=== PATIENT | male | born 1945 | race Caucasian/White ===

== ENCOUNTER 2019-05-02 12:24 | Outpatient (CLI) | payer MEDICARE, OTHER, SELFPAY ==
--- NOTE | ~2019-05-02 | XR_ITS ---
EXAMINATION: XR sacroiliac jt inj w imag BI DATE: 05/02/2019 13:41 INDICATION: Low back and bilateral hip pain. TECHNIQUE: A time-out was performed to verify the patient's name, date of , and procedure to b e performed. The procedure including the risks, benefits, and alternatives was discussed with the pat ient. Risks discussed included bleeding and infection. The patient understood the risks and agreed to proceed. The skin overlying the bilateral sacroiliac joints joint was prepped and draped in usual s terile fashion. Attention was first turned to the right sacroiliac joint. Anesthetic was administered with 1% lidocaine subcutaneously. A 22 G needle was advanced under fluoroscopic guidance into the j oint. Injection of 0.6 mL of Omnipaque 240 confirmed intra-articular position of the needle. Subseq uently, injectate consisting of 5 mL of 3:1:1 mixture of 1% lidocaine:40 mg/mL [place]alo mg dexameth asone was injected. Washout of contrast was seen confirming intra-articular administration. The needl e was removed and attention turned the lesser curvature. Anesthetic was administered with 1% lidocain e subcutaneously. A 22 G needle was advanced under fluoroscopic guidance into the joint. Injection of 0.6 mL of Omnipaque 240 confirmed intra-articular position of the needle. Subsequently, injectate consisting of 5 mL of 3:1:1 mixture of 1% lidocaine:40 mg/mL Kenalo mg dexamethasone was injecte d. Washout of contrast was seen confirming intra-articular administration. The needle was removed. Eric th entry sites were cleaned and dressed. There were no immediate complications. Fluoroscopy exposure time was 1.2 minutes. The total number of images was 6. FINDINGS: Real-time fluoroscopy demonstrates the needle in the left and right sacroiliac joints. Li ent's pain prior to procedure:0/10 on the right and 2/10 on the left. Patient's pain following the p rocedure: 0/10 on both the left and right. IMPRESSION: 1. Successful left and right sacroiliac joint injections of local anesthetic and steroid with decreas e in the patient's presenting pain. Reviewed, dictated and finalized at location A. EILLANCE OFFICER IMPRESSION: 1. Successful left and right sacroiliac joint injections of local anesthetic an d steroid with decrease in the patient's presenting pain.
== END 2019-05-02 12:25 | disposition home or self-care (01) ==
LOC: ANHIMG 12:25
PROVIDERS: PCP Internal Medicine; Visit Provider Internal Medicine
DX: M54.5 Low back pain (principal); M25.551 Pain in right hip; M25.552 Pain in left hip
CPT/HCPCS: 27096; G0260; J1100; J3301; Q9966

== ENCOUNTER 2019-07-14 13:18 | Outpatient (RCR) | payer MEDICARE, OTHER, SELFPAY ==
--- NOTE | 2019-07-17 12:44 | PTOPEVAL ---
Thank you for referring this patient to [facility]. Please review, sign, date and return this plan of care [facility]. I agree with and certify that the following plan of care is medically necessary. Referring Physician Date Admitting Provider: Attending Provider: Bal Tomas MD Referring Provider: *PT Outpatient Evaluation Start: 07/14/19 12:58 Freq: Status: Active Protocol: Document 07/14/19 13:00 [email or web address] (Rec: 07/17/19 12:33 LONNIE [email or web address]) Therapy Assessment Status Assessment Status Assessment Status Evaluation Evaluation Information Problem Diagnosis low back and right knee pain, weakness Onset 07/06/19 Subjective Information Pt. reports that he has been Query Text:As Reported By Patient/ having difficulty with right Family knee pain, bilateral leg pain and extreme pain described across the low back for years. He reports that he has performed therapy in the past, but states that he has failed to continue to exercise at home. He reports that he is mostly limited due to extreme back pain developing with short periods of standing. 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 He reports that his goal is to improve his strength and attempt to decrease his pain. Prior Level of Function Activity Level (Last 3 Months) Hand Dominance Right Activity of Daily Living Ability Independent Indoor/Home Mobility Independent Community Mobility Independent Stairs Ability Independent Functional Cognition (Planning, Shopping Independent , Taking Medications) Cooking Yes Cleaning No Laundry No Shopping No Driving Yes Comments Additional Prior Level of Function Pt. 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 He has extensive medical hx including multiple levels of described lumba
--- NOTE | 2019-08-04 13:22 | PCPTNOTE ---
08/04/19-pt cancelled today's apt due to family emergency.-ELBA
--- NOTE | 2019-08-07 09:39 | PCPTNOTE ---
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
== END 2019-08-02 23:59 | disposition home or self-care (01) ==
LOC: CHSPT 13:18
PROVIDERS: PCP Internal Medicine; Visit Provider Internal Medicine
DX: M54.5 Low back pain (principal); M25.569 Pain in unspecified knee; M62.81 Muscle weakness (generalized)
CPT/HCPCS: 97110; 97140

== ENCOUNTER 2019-07-28 11:27 | Outpatient (CLI) | payer MEDICARE, OTHER, SELFPAY ==
--- NOTE | ~2019-07-28 | XR_ITS ---
XR chest 2V 07/28/2019 11:45 Indication: Hypertension. Procedure: 2 view chest Comparison: 08/24/2018 Findings: Heart size normal. Left basilar atelectasis. No focal pneumonia, edema, pleural effusion or pneumothorax. There is atherosclerosis and ectasia of the aorta. Impression: 1: Left basilar atelectasis. Reviewed, dictated and finalized at location B. TRY FARMER MEAT Impression: 1: Left basilar atelectasis.
== END 2019-07-28 11:28 | disposition home or self-care (01) ==
LOC: CHSIMG 11:31
PROVIDERS: PCP Internal Medicine; Visit Provider Internal Medicine
DX: I10 Essential (primary) hypertension (principal)
CPT/HCPCS: 71046

== ENCOUNTER 2019-11-30 08:43 | Outpatient (RCR) | payer MEDICARE, OTHER, SELFPAY ==
--- NOTE | 2019-11-30 10:22 | PTOPEVAL ---
Thank you for referring Gopal Jordan to [facility]. Please review, sign, date and return this plan of care [facility]. I agree with and certify that the following plan of care is medically necessary. Referring Physician Date Admitting Provider: Attending Provider: Bal Tomas MD Referring Provider: *PT Outpatient Evaluation Start: 11/30/19 07:18 Freq: Status: Active Protocol: Document 11/30/19 08:58 Efrain (Rec: 11/30/19 10:00 DAVID [email or web address]) Therapy Assessment Status Assessment Status Assessment Status Evaluation Evaluation Information Problem Diagnosis generalized weakness Onset 11/27/19 Subjective Information patient reports he he is Query Text:As Reported By Patient/ having difficulty walking, Family difficulty lifting his arms, and reaching above his shoulder level. he reports he is prorgessively getting worse . he reports he has been to a neurologist back in july. he reports he has had no results given to him of any tests yet. he reports he is going to see an orthopedic md for evaluation of the shoulders tomorrow. he reports he has not had any falls. he reports he is frequently dropping objects. he reports the little finger and ring finger on the R hand are numb. he reports he has pains all over. Prior Level of Function Comments Additional Prior Level of Function he reports he has been Comments progressively getting worse since 2016. he reports he has had several back surgeries for the leg issues, but reports he is still getting weaker. Pain Assessment Timing of Pain Assessment Timing of Pain Assessment Assessment Pain Scale Pain Scale Used Numeric (1 - 10) Self Report Pain Assessment Generalized Reported Pain Level 4 Pain Description Aching Lowest Pain Intensity 0 Greatest Pain Intensity 6 Pain Score Pain Score 4: Self Report Upper Extremity Range of Motion Scapular/ Shoulder Range of Motion Right Shoulder Flexion - Active 55 Shoulder Flexion - Passive 165 Shoulder Medial Rotation - Active 35 Shoulder Medial Rotation - Active
--- NOTE | 2019-12-11 08:34 | PCPTNOTE ---
12/11/19-pt had another apt come up last minute and is unable to make it today.-.
== END 2019-12-29 10:30 | disposition home or self-care (01) ==
LOC: CHSPT 08:43
PROVIDERS: PCP Internal Medicine; Visit Provider Internal Medicine
DX: R53.1 Weakness (principal)
CPT/HCPCS: 97110; 97162

== ENCOUNTER 2019-12-14 08:40 | Outpatient (CLI) | payer MEDICARE, OTHER, SELFPAY ==
--- NOTE | ~2019-12-14 | XR_ITS ---
XR foot LT 2V DATE: 12/14/2019 09:16 INDICATION: Left foot pain. Polyarthralgia. TECHNIQUE: AP and lateral views COMPARISON: None FINDINGS: Plantar calcaneal enthesopathy. No fracture or dislocation, periosteal reaction or bone destruction. IMPRESSION: Plantar calcaneal enthesopathy Reviewed, dictated and finalized at location B.
--- NOTE | ~2019-12-14 | XR_ITS ---
XR foot RT 2V DATE: 12/14/2019 09:16 INDICATION: Right foot pain. Polyarthralgia. TECHNIQUE: AP and lateral views COMPARISON: None FINDINGS: There is plantar calcaneal enthesopathy. No fracture, dislocation, periosteal reaction or bone destruction is detected. IMPRESSION: Plantar calcaneal enthesopathy Reviewed, dictated and finalized at location B.
--- NOTE | ~2019-12-14 | XR_ITS ---
XR hand RT 2V DATE: 12/14/2019 09:16 INDICATION: Right hand pain. Polyarthralgia. TECHNIQUE: 3 views COMPARISON: None FINDINGS: There is degenerative change including spurring at the radial ulnar articulation. There is mild chondrocalcinosis at the triangular cartilage. There is severe osteoarthritic change at the first carpometacarpal joint. Prominent osteoarthritic ch anges also noted at the first through third metacarpophalangeal joints. There is osteoarthritic gu e at multiple interphalangeal joints. No fracture, dislocation, periosteal reaction or bone destruction or erosive change is evident. IMPRESSION: Polyarticular osteoarthritis Reviewed, dictated and finalized at location B.
--- NOTE | ~2019-12-14 | XR_ITS ---
XR hand LT 2V DATE: 12/14/2019 09:16 INDICATION: Left hand pain. Polyarthralgia. TECHNIQUE: AP and lateral views COMPARISON: None FINDINGS: There is spurring at the radial ulnar articulation and minimal subtle chondrocalcinosis at the triangular cartilage. There is mild osteoarthritis at the first carpometacarpal joint. There is osteophyte is at the first through third metacarpophalangeal joints and multiple interphalangeal joints. No fracture or dislocation, periosteal reaction or bone destruction or erosive change is evident. IMPRESSION: Polyarticular osteoarthritis Reviewed, dictated and finalized at location B.
== END 2019-12-14 08:41 | disposition home or self-care (01) ==
LOC: CHSIMG 08:44
PROVIDERS: PCP Internal Medicine; Visit Provider Internal Medicine Rheumatology
DX: M25.50 Pain in unspecified joint (principal); R53.83 Other fatigue; M62.81 Muscle weakness (generalized)
CPT/HCPCS: 73120; 73620

== ENCOUNTER 2020-03-22 13:00 | Outpatient (CLI) | payer MEDICARE, OTHER, SELFPAY ==
--- NOTE | ~2020-03-22 | XR_ITS ---
EXAMINATION: XR chest 2V DATE: 03/22/2020 13:15 INDICATION: Preoperative evaluation with brisk factors of hypertension and known abdominal aortic ane urysm. TECHNIQUE: frontal and lateral views of the chest were obtained. COMPARISON: Chest radiograph dated 07/28/19 FINDINGS: Elevation of the right hemidiaphragm. A few linear opacities at the bilateral lung bases consistent w ith mild discoid atelectasis. No other airspace opacities, pulmonary edema, pleural effusion or pneum othorax. Heart size is normal. Tortuous thoracic aorta. Minimal chronic anterior wedging of a few low er thoracic vertebral bodies. IMPRESSION: 1. Elevation the right hemidiaphragm with mild bibasilar atelectasis. Reviewed, dictated and finalized at location B.
--- NOTE | 2020-03-22 13:25 | ECG_ITS ---
Measurements Intervals [place] Rate: 92 P: 61 NC: 171 QRS: -12 QRSD: 117 T: 67 QT: 354 QTc: 438 Interpretive Statements SINUS RHYTHM INCOMPLETE RIGHT BUNDLE BRANCH BLOCK DELAYED PRECORDIAL R/S TRANSITION BASELINE WANDER- I, II, III, AVR, AVL, AVF, V2-V6 BORDERLINE ECG Electronically Signed On 03-22-2020 13:43:34 CDT by Kapil Benitez D.O.
== END 2020-03-22 13:01 | disposition home or self-care (01) ==
PROVIDERS: PCP Internal Medicine; Visit Provider Internal Medicine
DX: I10 Essential (primary) hypertension (principal); Z01.818 Encounter for other preprocedural examination
CPT/HCPCS: 71046; 93005

== ENCOUNTER 2020-03-30 10:09 | Outpatient (CLI) | payer MEDICARE, SELFPAY ==
[2020-04-01 00:53] LABS: SARS-CoV-2 RNA PCR Negative
== END 2020-03-30 10:10 | disposition home or self-care (01) ==
LOC: CHSLAB 10:11
PROVIDERS: PCP Internal Medicine; Visit Provider Neurological Surgery
DX: Z20.828 Contact with and (suspected) exposure to other viral communicable diseases (principal); Z01.818 Encounter for other preprocedural examination
CPT/HCPCS: 87635; C9803; U0003

== ENCOUNTER 2020-05-13 09:52 | Outpatient (RCR) | payer MEDICARE, OTHER, SELFPAY ==
--- NOTE | 2020-05-13 13:05 | OTOPEVAL ---
Thank you for referring Gopal Jordan to [facility].? The patient is scheduled to be seen for therapy? ____x/week for ___ weeks. Please review, sign, date and return this plan of care [facility]. I agree with and certify that the following plan of care is medically necessary. Referring Physician Date Admitting Provider: Attending Provider: GURWINDER PRINCE Referring Provider: DexterOT Outpatient Evaluation Start: 05/13/20 09:58 Freq: Status: Active Protocol: Document 05/13/20 09:59 [facility] (Rec: 05/13/20 11:15 [facility] [id number]) Therapy Assessment Status Assessment Status Assessment Status Evaluation Outpatient Past Medical History Musculoskeletal History Hx Joint Replacement Yes: L hip and knee Evaluation Information Problem Diagnosis spinal fusion Onset 04/02/20 Cause cervical radiculopathy Subjective Information Patient reports that he has Query Text:As Reported By Patient/ been having difficulity with Family bilateral shoulders and neck since July 2019. Patient had surgery on for cervical fusion and had several complications following surgery and spent 47 days in the hospital. Patient returned home last Wednesday. Patient reports that things have been going fairly well since that he has returned home however his right knee is completely shot and has been giving out. Patient recently had a feeding tube placed but is currently not using. Patient reports that his right rotator cuff is also shot and has been prior to neck surgery. Patient feels that his R hand is slowly getting stronger and his sensation has improved however would like to improve upon strength and use of the R UE. Prior Level of Function Activity Level (Last 3 Months) Hand Dominance Right Activity of Daily Living Ability Independent Indoor/Home Mobility Independent Community Mobility Independent Stairs Ability Independent Functional Cognition (Planning, Shopping Independent , Taking Medications)
--- NOTE | 2020-05-13 13:51 | PTOPEVAL ---
Thank you for referring Gopal Jordan to [facility].? The patient is scheduled to be seen for therapy? ____x/week for ___ weeks. Please review, sign, date and return this plan of care [facility]. I agree with and certify that the following plan of care is medically necessary. Referring Physician Date Admitting Provider: Attending Provider: GURWINDER PRINCE Referring Provider: *PT Outpatient Evaluation Start: 05/13/20 13:21 Freq: Status: Active Protocol: Document 05[facility]13/20 11:00 [facility] (Rec: 05/13/20 13:44 [facility] [id number] Therapy Assessment Status Assessment Status Assessment Status Evaluation Outpatient Past Medical History Musculoskeletal History Hx Joint Replacement Yes: L hip and knee Evaluation Information Problem Diagnosis s/p cervical fusion C3-C7 Onset 03/31/20 Subjective Information patient reports he underwent Query Text:As Reported By Patient/ cervical fusion on 03/31/20. Family he reports since then he has had complications and has spent a total of over 30 days in [facility] care since his oppertation. he reports he is receiving OT for his UE's, ST for his speecha nd swallowing issues, and PT for his LE deficits. however, he reports his greatest issue is with his R kene giving out on him. he reports he is bone on bone in the R knee. he reports he needs a replacement, but cannot have one done currently . he reports he is still struggling with the use of his R UE. he reports no shoudler function and minimal hand, wrist, and elbow function. he reports he is using a walker 100% of the time for ambulation, but reports his R knee will still give out on him without warning. Prior Level of Function Comments Additional Prior Level of Function patient reports he has been Comments ahving walking difficulty and should decreased functional use/mobility for several months prior to surgery. 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 Pain Assessment
--- NOTE | 2020-05-15 14:48 | STOPEVAL ---
SPEECH THERAPY OUTPATIENT EVALUATION Thank you for referring Gopal Jordan to [facility].? The patient is scheduled to be seen for therapy? 1x/week for 2 weeks. Please review, sign, date and return this plan of care [facility]. I agree with and certify that the following plan of care is medically necessary. Referring Physician Date Admitting Provider: Attending Provider: GURWINDER PRINCE Referring Provider: DAIJA Outpatient Evaluation Start: 05/15/20 13:44 Freq: Status: Active Protocol: Document 05/15/20 13:45 [facility] (Rec: 05/15/20 14:45 [facility]JB [email or web address]) Therapy Assessment Status Assessment Status Assessment Status Evaluation Outpatient Past Medical History Past Medical History Source of Past Medical History Patient Other Source of Past Medical History Medical history was taken from previous hospital admission. Respiratory History Hx Sleep Apnea Yes: uses CPAP Musculoskeletal History Hx Joint Replacement Yes: L hip and knee Hx Spinal Surgery Yes: L2-L5 Laminectomy January of 2019, 04-02-20 C3 -7 cervical fusion Integumentary History Hx Other Skin Disorders Yes: Hx of skin cancer excision Other History Hx Cancer Yes: skin Evaluation Information Problem Diagnosis s/p cervical fusion C3-C7 Onset 04/02/20 Cause cervical radiculopathy Subjective Information Patient reports he underwent Query Text:As Reported By Patient/ cervical fusion on 03/31/20. Family he reports since then he has had complications and has spent a total of over 30 days in hospital care since his operation. He reports he is receiving OT for his UE's, ST for his swallowing difficulties, and PT for his LE deficits. The patient reported that he has been having swallowing difficulties since the cervical surgery. The doctor suspects possible nerve damage impacting the patient's sensation and laryngeal function. The patient reported that the hardware placed is impacting the epiglottic function/ movement. The patient was silently aspirating after
--- NOTE | 2020-05-29 14:33 | PCSTNOTE ---
Admitting Provider: Attending Provider: GURWINDER PRINCE SPEECH THERAPY DISCHARGE NOTE Patient:Gopal Jordan Date of :1945 Patient has attended all scheduled speech therapy sessions since evaluation on 05/15/2020. Patient?s initial visit was on 05/15/2020 and he had a total of 2 treatment visits. The goals have been met and patient is tolerating a least restrictive diet through the use of trained compensatory techniques. Thank you for referring this patient to [facility]. Please review, sign, date and return this discharge summary [facility]. I have been updated about the patient's current status and I agree with discharge from the above service at this time. Referring Physician Date
--- NOTE | 2020-07-09 14:10 | PCOTNOTE ---
Patient is discharged from skilled OT services at this time as he had knee surgery and is receiving Home health. See patient's last treatment note for skills at discharge. MS
--- NOTE | 2020-07-18 07:11 | PCPTNOTE ---
07/18/20 - patient has had surgery and begun therapy under a new number. all progress towards goals taken most recent evaluation/note on this account. JTF
== END 2020-06-04 15:24 | disposition home or self-care (01) ==
LOC: CHSPT 09:52
PROVIDERS: PCP Internal Medicine
DX: M47.22 Other spondylosis with radiculopathy, cervical region (principal)
CPT/HCPCS: 92526; 92610; 97014; 97110; 97162; 97165; 97530; G0283

== ENCOUNTER 2020-05-18 10:39 | Outpatient (CLI) | payer MEDICARE, OTHER, SELFPAY ==
--- NOTE | ~2020-05-18 | XR_ITS ---
XR chest 2V 05/18/2020 11:16 Indication: Aspiration pneumonia Procedure: AP view of the chest Comparison: Comparison to multiple prior studies sequentially, with oldest reviewed study dated 07/2018. Findings: Shallow inspiration. Bibasilar airspace disease, consistent with pneumonia. No edema, signi ficant effusion or pneumothorax. No acute osseous abnormality. Impression: 1: Bibasilar airspace consolidation, consistent with pneumonia. Consider modified barium swallow if t here is concern for aspiration. Reviewed, dictated and finalized at location A. NT ASSOCIATE Impression: 1: Bibasilar airspace consolidation, consistent with pneumonia. Consider modifi ed barium swallow if there is concern for aspiration.
== END 2020-05-18 10:40 | disposition home or self-care (01) ==
LOC: CHSIMG 10:41
PROVIDERS: PCP Internal Medicine; Visit Provider Internal Medicine
DX: J69.0 Pneumonitis due to inhalation of food and vomit (principal)
CPT/HCPCS: 71046

== ENCOUNTER 2020-06-10 09:59 | Outpatient (CLI) | payer MEDICARE, OTHER, SELFPAY ==
--- NOTE | ~2020-06-10 | XR_ITS ---
EXAMINATION: XR chest 2V DATE: 06/10/2020 10:36 INDICATION: Chest pain. Dysphagia. TECHNIQUE: Frontal and lateral views of the chest were obtained. COMPARISON: Chest 2 views 05/18/2020, 03/22/2020 FINDINGS: There are airspace opacities in the lower lung zones, right worse than left. No pleural eff usion or pneumothorax. The heart size is normal. There are changes of anterior fusion procedure in ce rvical spine. IMPRESSION: 1. Stable airspace opacities in the lower lung zones, consistent with atelectasis versus pneumonia. Reviewed, dictated and finalized at location B. AGE CENTER SUPERVISOR IMPRESSION: 1. Stable airspace opacities in the lower lung zones, consistent with atelectas is versus pneumonia.
--- NOTE | ~2020-06-10 | XR_ITS ---
EXAMINATION: XR_CERV2-3V_CR EXAM DATE: 06/10/2020 10:36 INDICATION: Neck pain, cervical fusion. TECHNIQUE: Cervical spine frontal, lateral, lateral swimmers, and open-mouth odontoid projections. There is no prior study for comparison. FINDINGS: There is anterior plate and supporting screws from C3 through C7. Hardware is intact. Ther e is severe cervical arthropathy. The odontoid process is intact. The lateral masses of C1 line up w ith C2. Prevertebral soft tissue and pre-dens space are within normal limits. Some carotid arterial s clerosis bilaterally. Lung apices are unremarkable. IMPRESSION: 1. Intact fusion C3-7. 2. Severe cervical arthropathy. Reviewed, dictated and finalized at location A. FOLIO ARCHITECT
== END 2020-06-10 10:00 | disposition home or self-care (01) ==
LOC: CHSIMG 10:06
PROVIDERS: PCP Internal Medicine; Visit Provider Internal Medicine
DX: J69.0 Pneumonitis due to inhalation of food and vomit (principal); Z98.890 Other specified postprocedural states
CPT/HCPCS: 71046; 72040

== ENCOUNTER 2020-07-16 09:56 | Outpatient (RCR) | payer MEDICARE, OTHER, SELFPAY ==
--- NOTE | 2020-07-18 06:47 | PTOPEVAL ---
Thank you for referring Gopal Jordan to [facility].? The patient is scheduled to be seen for therapy? __3__x/week for 12 visits. Please review, sign, date and return this plan of care [facility]. I agree with and certify that the following plan of care is medically necessary. Referring Physician Date Admitting Provider: Attending Provider: JERI MARIEE Referring Provider: *PT Outpatient Evaluation Start: 07/16/20 09:57 Freq: Status: Active Protocol: Document 07/16/20 09:58 LONNIE (Rec: 07/16/20 10:46 LONNIE [email or web address]) Therapy Assessment Status Assessment Status Assessment Status Evaluation Outpatient Past Medical History Respiratory History Hx Sleep Apnea Yes: uses CPAP Musculoskeletal History Hx Joint Replacement Yes: L hip and knee Hx Spinal Surgery Yes: L2-L5 Laminectomy January of 2019, 04-02-20 C3 -7 cervical fusion Integumentary History Hx Other Skin Disorders Yes: Hx of skin cancer excision Other History Hx Cancer Yes: skin Evaluation Information Problem Diagnosis s/p right TKA Onset 06/17/20 Subjective Information Pt. reports he underwent right Query Text:As Reported By Patient/ TKA 5 weeks ago. He has been Family doing HH since surgery. He states that prior to undergoing knee surgery he was recovering from weakness developed after neck surgery. He states that he is currently using a ww for ambulation. He reports knee pain is minimal. He states that he continues to use his walker due to l.e. weakness. He reports that his goal is to be able to walk without the use of his walker. Pain Assessment Timing of Pain Assessment Timing of Pain Assessment Pre-Treatment Pain Scale Pain Scale Used Numeric (1 - 10) Self Report Pain Assessment Right Knee(s) Reported Pain Level 0 Pain Frequency Intermittent Lowest Pain Intensity 0 Greatest Pain Intensity 3 Pain Score Pain Score 0: Self Report Interventions Used Interventions Used By Clinicians Activity or ADL's,Exercise Upper Extremity Range of Motion General Upper Extremity Range of Motion Gross Upper Extremity Range of Motion Pt. demonstrates inability to Comments achieve active movement of the
--- NOTE | 2020-08-09 10:56 | PTOPEVAL ---
Thank you for referring Gopal Jordan to [facility].? The patient is scheduled to be seen for therapy? _2___x/week for 12 visits. Please review, sign, date and return this plan of care RICH. I agree with and certify that the following plan of care is medically necessary. Referring Physician Date Admitting Provider: Attending Provider: JERI MARIEE Referring Provider: *PT Outpatient Evaluation Start: 07/16/20 09:57 Freq: Status: Active Protocol: Document 08/09/20 10:13 LONNIE (Rec: 08/09/20 10:56 LONNIE [id number]) Therapy Assessment Status Assessment Status Assessment Status Progress Outpatient Past Medical History Respiratory History Hx Sleep Apnea Yes: uses CPAP Musculoskeletal History Hx Joint Replacement Yes: L hip and knee Hx Spinal Surgery Yes: L2-L5 Laminectomy January of 2019, 04-02-20 C3 -7 cervical fusion Integumentary History Hx Other Skin Disorders Yes: Hx of skin cancer excision Other History Hx Cancer Yes: skin Evaluation Information Problem Diagnosis s/p right TKA Subjective Information Pt. reports that he is doing Query Text:As Reported By Patient/ better. He states that he is Family walking further and able to walk straighter. He states that he still uses his walker. He reports that he has not yet returned to driving. He reports that his goal is to be able to walk without his cane and to be able to return to driving. Pain Assessment Pain Scale Pain Scale Used Numeric (1 - 10) Self Report Pain Assessment Right Knee(s) Reported Pain Level 0 Pain Score Pain Score 0: Self Report Interventions Used Interventions Used By Clinicians Activity or ADL's,Exercise Lower Extremity Muscle Strength Testing General Lower Extremity Strength Gross Lower Extremity Strength -right hip flexion 4-/5 -left hip flexion 4+/5 -right knee flexion 4/5 -left knee flexion 4+/5 -right knee extension 3/5 -left knee extension 4+/5 -right ankle dorsiflexion 4+/5 -left ankle dorsiflexion 5/5 Balance Assessment Tinetti Balance Assessment Sitting Balance Steady, safe Ability to Arise Able, w/o using arms Attempts to Arise Able, requires >1 attempt Immedi
== END 2020-09-19 16:14 | disposition home or self-care (01) ==
LOC: CHSPT 09:56
PROVIDERS: PCP Internal Medicine
DX: Z96.651 Presence of right artificial knee joint (principal)
CPT/HCPCS: 97110; 97116; 97162; 97530

== ENCOUNTER 2021-04-22 10:33 | Outpatient (CLI) | payer MEDICARE, OTHER, SELFPAY | END 2021-04-22 10:34 | disposition home or self-care (01) | LOC: CHSOUTPT 10:37 | PROVIDERS: PCP Internal Medicine; Visit Provider Specialist | DX: C44.311 Basal cell carcinoma of skin of nose (principal) | CPT/HCPCS: 88305 ==

== ENCOUNTER 2021-09-15 10:42 | Outpatient (CLI) | payer MEDICARE, OTHER, SELFPAY ==
--- NOTE | ~2021-09-15 | XR_ITS ---
XR chest 2V DATE: 09/15/2021 11:21 INDICATION: Cough. Shortness of breath. Right rib pain. Fall 6 weeks ago. TECHNIQUE: Upright 2 view examination COMPARISON: 06/10/2020 AP and lateral chest FINDINGS: There is chronic discoid atelectasis or scarring at the lung bases. There is mild to modera te elevation of the right leaf of the diaphragm. Otherwise no pulmonary infiltrate or consolidation, pleural effusion or pulmonary vascular congestion or pneumothorax is detected. Normal heart size. Aortic calcification, ectasia and tortuosity. Diffuse osteopenia. Status post anterior cervical spine surgical fusion. Osteoarthritic change at the glenohumeral joints. Probable bilateral rotator cuff atrophy. IMPRESSION: Chronic bibasilar discoid atelectasis or scarring Mild to moderate elevation of right diaphragm Aortic atherosclerosis, tortuosity Diffuse osteopenia Status post anterior cervical spine surgical fusion Bilateral glenohumeral osteoarthritis and rotator cuff atrophy Reviewed, dictated and finalized at location A.
--- NOTE | ~2021-09-15 | XR_ITS ---
XR ribs RT 2V DATE: 09/15/2021 11:21 INDICATION: Fall 6 weeks ago. Right rib pain. Shortness of breath, cough. TECHNIQUE: 4 views COMPARISON: None FINDINGS: Diffuse osteopenia. Probable old healed anterolateral right eighth rib fracture deformity. Probable old healed posterolateral right 10th rib fracture deformity. CT thorax would be more helpful to differentiate acute from chronic fractures. No definite recent fractures identified. Status post anterior cervical spine surgical fusion. Degenerative changes of the thoracic and lumbar spine. Prominent atelectasis or scarring at the right lung base. IMPRESSION: Osteopenia Probable old fracture deformities of right eighth and 10th ribs. Reviewed, dictated and finalized at location A.
[2021-09-15 10:54] LABS: Basophils Absolute Auto 0.08 K/mm3 (0.00-0.10); Basophils Percent Auto 0.6 % (0.0-1.0); Eosinophils Absolute Auto 0.32 K/mm3 (0.02-0.50); Eosinophils Percent Auto 2.5 % (1.0-6.0); Hematocrit 44.8 % (37.0-46.0); Hemoglobin 14.4 g/dL (12.4-15.3); Immature Granulocyte Absolute 0.07 K/mm3 (0.00-0.00); Immature Granulocyte Percent A 0.5 % (0.0-0.0); Lymphocytes Percent Auto 18.1 % (18.0-42.0); Mean Corpuscular HGB Conc 32.1 g/dL (32.0-36.0); Mean Corpuscular Hemoglobin 29.4 pg (27.0-31.0); Mean Corpuscular Volume 91.4 fL (78.0-102.0); Mean Platelet Volume 8.8 fl (8.7-11.0); Monocytes Absolute Auto 1.47 K/mm3 (0.10-0.90); Monocytes Percent Auto 11.5 % (2.0-11.0); Neutrophils Absolute Auto 8.5 K/mm3 (1.7-7.2); Neutrophils Percent Auto 66.8 % (50.0-70.0); Platelet Count Result 273 K/mm3 (150-420); Red Cell Distribution Width 13.4 % (11.6-14.4); White Blood Count 12.7 K/mm3 (4.8-10.8)
[2021-09-15 11:10] LABS: Alanine Aminotransferase 45 U/L (16-63); Albumin Level 3.2 g/dL (3.4-5.0); Alkaline Phosphatase 170 U/L (46-116); Anion Gap 8 mmol/L (8-16); Aspartate Amino Transferase 31 U/L (15-37); Bilirubin,Total 0.5 mg/dL (0.00-1.00); Blood Urea Nitrogen 12 mg/dL (7-18); Calcium 9.4 mg/dL (8.5-10.1); Carbon Dioxide 30 mmol/L (21-32); Chloride 99 mmol/L (98-108); Estimated Glomerular Filt Rate > 60; Glucose 107 mg/dL (70-99); Osmolality Calculated 283 mOsm/kg (285-295); Potassium 3.9 mmol/L (3.5-5.1); Sodium 137 mmol/L (136-145); Total Protein 7.8 g/dL (6.4-8.2)
== END 2021-09-15 10:43 | disposition home or self-care (01) ==
LOC: CHSIMG 10:44
PROVIDERS: PCP Internal Medicine; Visit Provider Nurse Practitioner Family
DX: R05.9 Cough, unspecified (principal); J06.9 Acute upper respiratory infection, unspecified; R07.81 Pleurodynia
CPT/HCPCS: 36415; 71046; 71100; 80053; 85025

== ENCOUNTER 2021-10-16 16:40 | Outpatient (CLI) | payer MEDICARE, OTHER, SELFPAY ==
--- NOTE | ~2021-10-16 | XR_ITS ---
XR chest 2V 10/16/2021 17:01 Indication: Shortness of breath Procedure: 2 view chest Comparison: Comparison to multiple prior studies sequentially, with oldest reviewed study dated 04/24. Findings: Heart size is normal. There is atherosclerosis and ectasia of the aorta. There are linear i nfiltrates at the lung bases, most likely atelectasis or scarring. No acute focal pneumonia, edema, p leural effusion or pneumothorax. There is a chronic superior endplate compression deformity of the mi dthoracic spine, unchanged. Impression: 1: Chronic bibasilar linear infiltrates which most likely represents atelectasis or scarring. Reviewed, dictated and finalized at location A. Impression: 1: Chronic bibasilar linear infiltrates which most likely represents atelectasi s or scarring.
[2021-10-16 17:09] LABS: Basophils Absolute Auto 0.05 K/mm3 (0.00-0.10); Basophils Percent Auto 0.8 % (0.0-1.0); Eosinophils Absolute Auto 0.22 K/mm3 (0.02-0.50); Eosinophils Percent Auto 3.4 % (1.0-6.0); Hematocrit 41.3 % (37.0-46.0); Hemoglobin 13.7 g/dL (12.4-15.3); Immature Granulocyte Absolute 0.04 K/mm3 (0.00-0.00); Immature Granulocyte Percent A 0.6 % (0.0-0.0); Lymphocytes Absolute Auto 1.26 K/mm3 (1.10-4.50); Lymphocytes Percent Auto 19.7 % (18.0-42.0); Mean Corpuscular HGB Conc 33.2 g/dL (32.0-36.0); Mean Corpuscular Hemoglobin 30.7 pg (27.0-31.0); Mean Corpuscular Volume 92.6 fL (78.0-102.0); Mean Platelet Volume 9.1 fl (8.7-11.0); Monocytes Absolute Auto 0.89 K/mm3 (0.10-0.90); Monocytes Percent Auto 13.9 % (2.0-11.0); Neutrophils Absolute Auto 3.9 K/mm3 (1.7-7.2); Neutrophils Percent Auto 61.6 % (50.0-70.0); Platelet Count Result 205 K/mm3 (150-420); Red Blood Count 4.46 M/mm3 (4.70-6.10); Red Cell Distribution Width 13.8 % (11.6-14.4); White Blood Count 6.4 K/mm3 (4.8-10.8)
[2021-10-16 17:23] LABS: Alanine Aminotransferase 35 U/L (16-63); Albumin Level 3.3 g/dL (3.4-5.0); Alkaline Phosphatase 125 U/L (46-116); Anion Gap 6 mmol/L (8-16); Aspartate Amino Transferase 20 U/L (15-37); Bilirubin,Total 0.2 mg/dL (0.00-1.00); Blood Urea Nitrogen 14 mg/dL (7-18); Calcium 8.9 mg/dL (8.5-10.1); Carbon Dioxide 30 mmol/L (21-32); Chloride 100 mmol/L (98-108); Estimated Glomerular Filt Rate > 60; Glucose 87 mg/dL (70-99); Osmolality Calculated 281 mOsm/kg (285-295); Sodium 136 mmol/L (136-145); Total Protein 6.9 g/dL (6.4-8.2)
[2021-10-16 17:44] LABS: Influenza A QL RT-PCR Negative (Negative); Influenza B QL RT-PCR Negative (Negative); SARS-CoV-2 RNA PCR Positive (Negative)
== END 2021-10-16 16:41 | disposition home or self-care (01) ==
LOC: CHSLAB 16:42
PROVIDERS: PCP Internal Medicine; Visit Provider Internal Medicine
DX: U07.1 COVID-19 (principal)
CPT/HCPCS: 36415; 71046; 80053; 85025; 87502; C9803; U0003; U0005

== ENCOUNTER 2022-06-24 10:12 | Outpatient (CLI) | payer MEDICARE, OTHER, SELFPAY ==
[2022-06-24 12:01] LABS: Alanine Aminotransferase 38 U/L (16-63); Albumin Level 3.7 g/dL (3.4-5.0); Alkaline Phosphatase 115 U/L (46-116); Anion Gap 5 mmol/L (8-16); Aspartate Amino Transferase 28 U/L (15-37); Bilirubin,Total 0.3 mg/dL (0.00-1.00); Blood Urea Nitrogen 17 mg/dL (7-18); Carbon Dioxide 35 mmol/L (21-32); Chloride 101 mmol/L (98-108); Cholesterol 229 mg/dL (0-200); Creatine Kinase 59 U/L (39-308); Estimated Glomerular Filt Rate > 60; Glucose 89 mg/dL (70-99); HDL Direct 54 mg/dL (40-60); LDL Cholesterol Calculated 142 mg/dL (<130); Osmolality Calculated 292 mOsm/kg (285-295); Potassium 4.5 mmol/L (3.5-5.1); Sodium 141 mmol/L (136-145); Triglycerides 163 mg/dL (0-150)
== END 2022-06-24 10:13 | disposition home or self-care (01) ==
PROVIDERS: PCP Internal Medicine; Visit Provider Internal Medicine
DX: E78.5 Hyperlipidemia, unspecified (principal)
CPT/HCPCS: 36415; 80053; 80061; 82550

== ENCOUNTER 2022-07-10 09:50 | Outpatient (CLI) | payer MEDICARE, OTHER, SELFPAY ==
--- NOTE | ~2022-07-10 | XR_ITS ---
EXAMINATION: XR abdomen obstructive series DATE: 07/10/2022 10:17 INDICATION: Constipation. TECHNIQUE: Upright and supine views of the abdomen on 4 radiographs were obtained. COMPARISON: None. FINDINGS: There are multiple dilated loops of small bowel. The colon is decompressed. No free intrape ritoneal gas. There are surgical clips in the abdomen. There is a left hip arthroplasty. IMPRESSION: 1. Dilated small bowel, consistent with adynamic ileus versus small bowel obstruction. Reviewed, dictated and finalized at location A. PACKAGER IMPRESSION: 1. Dilated small bowel, consistent with adynamic ileus versus small bowel obstr uction.
--- NOTE | ~2022-07-10 | CT_ITS ---
EXAMINATION: CT abdomen pelvis w con DATE: 07/10/2022 12:02 INDICATION: Abdominal pain. Constipation. TECHNIQUE: Computed tomography (CT) of the abdomen and pelvis was performed with 100 mL Omnipaque 350 intravenous contrast. Automated exposure control and iterative reconstruction technique were employe d. The dose-length product was 1422.89 mGy-cm. COMPARISON: None. FINDINGS: The visualized portions of the lung bases demonstrate mild atelectasis. There is elevation of right hemidiaphragm. No pleural effusion. The heart size is normal. There are coronary artery calc ifications. No pericardial effusion. The liver is normal. The gallbladder is distended. The spleen, p ancreas, and adrenal glands are normal. There is cortical thinning of right kidney. There is a 2 mm s tone in right kidney. There is severe atrophy of left kidney. There are cysts in left kidney measurin g up to 10 mm. The prostate is mildly enlarged. There is diverticulosis of the colon without evidence of diverticulitis. The appendix is normal. There are multiple dilated loops of small bowel without f ocal transition point. There are surgical changes of open aortic repair. There is a 3.9 cm fusiform a neurysm of infrarenal aorta. There is an umbilical hernia containing fat. There are no pathologically enlarged lymph nodes. There is no free intraperitoneal fluid. There are old rib fractures bilaterall y. There is lumbar dextroscoliosis and severe spondylosis. There is a left hip arthroplasty. There is a chronic compression fracture of T7. IMPRESSION: 1. Dilated small bowel without focal transition point, consistent with adynamic ileus. 2. Gallbladder distention, which may be secondary to fasting. 3. Surgical changes of open aortic repair. 3.9 cm fusiform aneurysm of infrarenal aorta. Reviewed, dictated and finalized at location A. ENERGY AUDITOR IMPRESSION: 1. Dilated small bowel without focal transition point, consistent with adynamic ileus. 2. Gallbladder distention, which may be secondary to fasting. 3. Surgical changes of open aortic repair. 3.9 cm fusiform aneurysm of infraren al aorta.
[2022-07-10 10:31] LABS: Alanine Aminotransferase 31 U/L (16-63); Albumin Level 3.5 g/dL (3.4-5.0); Alkaline Phosphatase 96 U/L (46-116); Anion Gap 6 mmol/L (8-16); Aspartate Amino Transferase 24 U/L (15-37); Bilirubin,Total 0.3 mg/dL (0.00-1.00); Blood Urea Nitrogen 17 mg/dL (7-18); Calcium 8.9 mg/dL (8.5-10.1); Carbon Dioxide 31 mmol/L (21-32); Chloride 101 mmol/L (98-108); Estimated Glomerular Filt Rate > 60; Glucose 101 mg/dL (70-99); Magnesium 1.5 mg/dL (1.8-2.4); Osmolality Calculated 287 mOsm/kg (285-295); Potassium 4.7 mmol/L (3.5-5.1); Sodium 138 mmol/L (136-145); Total Protein 6.5 g/dL (6.4-8.2)
== END 2022-07-10 09:51 | disposition home or self-care (01) ==
PROVIDERS: PCP Internal Medicine; Visit Provider Internal Medicine
DX: K59.00 Constipation, unspecified (principal); I71.43 Infrarenal abdominal aortic aneurysm, without rupture
CPT/HCPCS: 36415; 74019; 74177; 80053; 83735; Q9967

== ENCOUNTER 2022-07-18 08:31 | Inpatient (IN) | payer MEDICARE, OTHER, SELFPAY ==
[2022-07-18] VITALS (40 sets, daily range): BP systolic 69–142; BP diastolic 26–86; PULSE 95–122; RESP 11–43; TEMP 36.4–37.4; O2SAT 90–99; BMI 35.2
--- NOTE | ~2022-07-18 | XR_ITS ---
Supine views of the abdomen Clinical history: Small bowel obstruction Findings: NG tube in place. There are distended small bowel present in the right abdomen. No free air . No abnormal mass lesion or calcification is seen. Stable scoliosis and degenerative change in the l umbar spine. Impression: NG tube in place with air distended right-sided small bowel loops. Reviewed, dictated and finalized at [facility]. AND TAPE MACHINE TENDER Impression: NG tube in place with air distended right-sided small bowel loops.
--- NOTE | ~2022-07-18 | CT_ITS ---
EXAMINATION: CT abdomen pelvis w con DATE: 07/18/2022 10:07 INDICATION: Right lower quadrant abdominal pain, bloating for 3 weeks. Constipation. TECHNIQUE: Computed tomography (CT) of the abdomen and pelvis was performed with 100 CC Omnipaque 350 intravenous contrast. Automated exposure control and iterative reconstruction technique were employe d. Exam dose: 1666.53 mGy-cm total exam DLP. COMPARISON: July 10, 2022 CT abdomen pelvis FINDINGS: Bilateral lower lobe infiltrate and/or atelectasis. Normal heart size. No pericardial or pleural effusion. Elevated right diaphragm. The liver, gallbladder, spleen, pancreas and adrenal glands are unremarkable. Scattered small bilateral renal cysts. There is severe atrophy and scarring in the left kidney, with pelviectasis. Pinpoint nonobstructing right renal calculus. Approximately 3.9 cm fusiform infrarenal abdominal aortic aneurysm. No intraperitoneal or retroperito stephen or pelvic mass lesion or adenopathy or ascites. There is prostate calcification and enlargement. There is fluid throughout the small bowel with numerous small bowel air-fluid levels, small bowel manda meter up to 4 cm. There multiple air-fluid levels of the colon as well. The findings suggest enteroco litis or prominent adynamic ileus. No transition point to suggest bowel obstruction. No intraperitone al free air. Fat-containing umbilicus. Left hip arthroplasty Degenerative change at the sacroiliac joints and prominent right hip osteoarthritis. Prominent degenerative change of the lumbar spine. IMPRESSION: Air fluid levels of the small and large bowel suggesting prominent enterocolitis and/or adynamic ileus, increased since July 10, 2022 Prominent atrophy and scarring of the left kidney Scattered small renal cysts Bilateral nonobstructive mild nephrolithiasis Scattered bilateral renal cysts 3.9 cm fusiform infrarenal abdominal aortic aneurysm Bilateral lower lobe infiltrate and/or atelectasis Reviewed, dictated and finalized at Location A. Reviewed, dictated and finalized at location A. VAULT CLERK
--- NOTE | ~2022-07-18 | XR_ITS ---
Portable chest x-ray Comparison: 10/16/2021 Clinical History: Hypoxia Findings: Lungs are clear, without focal consolidation or pleural effusion. Stable elevation right h emidiaphragm. NG tube in satisfactory position. Cardiomediastinal silhouette is stable. Bones and so ft tissues are unremarkable. Impression: Clear lungs. NG tube in place. Elevated right hemidiaphragm. Reviewed, dictated and finalized at location . IAC CATH LAB MANAGER Impression: Clear lungs. NG tube in place. Elevated right hemidiaphragm.
--- NOTE | ~2022-07-18 | XR_ITS ---
XR abdomen NG/feed tube insert DATE: 07/18/2022 11:42 INDICATION: NG tube placement TECHNIQUE: Portable upright AP view on the July 18, 2022: 39 hours COMPARISON: July 18, 2022 portable KUB at 1030 hours FINDINGS: The NG tube has been advanced slightly further into the stomach, the proximal side-port now situated just distal to the diaphragmatic hiatus, the NG tube approximately 9 cm into the upper body of the stomach. IMPRESSION: NG tube in the upper body of stomach Reviewed, dictated and finalized at Location A. Reviewed, dictated and finalized at location A. ET MAKING MACHINE OPERATOR HELPER
--- NOTE | ~2022-07-18 | XR_ITS ---
XR abdomen NG/feed tube insert DATE: 07/18/2022 10:34 INDICATION: NG tube placement TECHNIQUE: Portable upright AP view of July 18, 2022 at 1030 hours COMPARISON: None FINDINGS: NG tube extends approximately 6.4 cm distal to the diaphragmatic hiatus into the upper body of the stomach. Elevated right diaphragm and bibasilar infiltrate or atelectasis. Heart size is within normal range. Thoracic aortic calcification and tortuosity. IMPRESSION: NG tube in the upper body of stomach Reviewed, dictated and finalized at Location A. Reviewed, dictated and finalized at location A. DINATE MEASURING MACHINE OPERATOR
--- NOTE | ~2022-07-18 | XR_ITS ---
XR sm bowel follow through WS DATE: 07/22/2022 10:32 INDICATION: Small bowel obstruction. Abdominal pain, constipation. TECHNIQUE: Serial images of the abdomen were performed after administration of water soluble radiopaq ue contrast material COMPARISON: None FINDINGS: There is a nasogastric tube in the distal body of the stomach. There is thickening of the mucosal folds of the duodenum. Contrast material reaches the colon within 30 minutes, without evidence of obstruction. Mucosal folds the jejunum and ileum appear normal. Termi nal ileum is unremarkable. Rotatory dextro scoliosis and severe multilevel degenerative disc disease of the lumbar spine. Left h ip replacement. IMPRESSION: Thickened duodenal folds suggesting duodenitis No small bowel obstruction Reviewed, dictated and finalized at Location A. Reviewed, dictated and finalized at location A. C PUBLICIST
--- NOTE | ~2022-07-18 | XR_ITS ---
Supine views of the abdomen Clinical history: Small bowel obstruction Findings: NG tube in satisfactory position. Dilated small bowel loops are present, especially in the right upper quadrant. No free air evident. No abnormal mass lesion or calcification is seen. Left hip arthroplasty noted. Impression: NG tube in place. Dilated small bowel loops are consistent with small bowel obstruction. Reviewed, dictated and finalized at [facility]. CUTTER Impression: NG tube in place. Dilated small bowel loops are consistent with small bowel obstruction.
--- NOTE | ~2022-07-18 | XR_ITS ---
XR abdomen/kub 1V DATE: 07/19/2022 06:34 INDICATION: Small bowel obstruction TECHNIQUE: Portable supine AP views on July 19, 2022 at [id number] hours COMPARISON: 07/18/2022 KUB FINDINGS: NG tube in stomach. Dilated gas distended small bowel measuring up to approximately 4.3 cm diameter compared to prior poppy dies 5.1 cm diameter on 07/18/2022. Surgical clips overlie the abdomen. There is radiopaque contrast material within the prominent left renal pelvis, which may indicate uret eropelvic obstruction, in addition to contrast material within the urinary bladder. Prominent rotatory dextroscoliosis and severe degenerative disease of the lumbar spine. Status post left total hip arthroplasty. IMPRESSION: Persistent abnormal small bowel dilatation, mildly improved since 07/18/2022 NG tube in stomach Suspected partial left UPJ obstruction (severe left renal atrophy is demonstrated on July 18 CT abdomen pelvis examination Reviewed, dictated and finalized at [facility]. Reviewed, dictated and finalized at location [facility]. S OFFICE ASSISTANT IMPRESSION: Persistent abnormal small bowel dilatation, mildly improved since NG tube in stomach Suspected partial left UPJ obstruction (severe left renal atrophy is demonstrat ed on July 18, 2022 CT abdomen pelvis examination
--- NOTE | ~2022-07-18 | XR_ITS ---
EXAM: XR abdomen NG/feed tube rechec DATE: 07/18/2022 17:18 HISTORY: recheck . COMPARISON: Same date at 11:39 AM. FINDINGS/IMPRESSION: Decreased air filling of the stomach. NG tube remains subdiaphragmatic, side por t and tube tip over the gastric fundus, perhaps advanced slightly since the prior study. Reviewed, dictated and finalized at location K. METRY ASSISTANT
--- NOTE | ~2022-07-18 | XR_ITS ---
XR abdomen NG/feed tube insert INDICATION: Evaluate NG tube position. TECHNIQUE: Limited KUB perform for evaluating NG tube . COMPARISON: 07/20/2022 FINDINGS: NG tube tip in the stomach. Visualized bowel gas pattern is nonspecific. IMPRESSION: 1: NG tube tip in the stomach. Reviewed, dictated and finalized at location B. XER
[2022-07-18 09:17] LABS: Basophils Absolute Auto 0.1 K/mm3 (0.0-0.1); Basophils Percent Auto 0.3 % (0.2-1.2); Eosinophils Absolute Auto 0.1 K/mm3 (0-0.3); Eosinophils Percent Auto 0.3 % (0-4.4); Hematocrit 48.6 % (42.0-52.0); Hemoglobin 15.6 g/dL (14.0-18.0); Immature Granulocyte Absolute 0.11 K/mm3 (0.00-0.031); Immature Granulocyte Percent A 0.5 % (0-0.5); Lymphocytes Absolute Auto 1.73 K/mm3 (0.9-3.2); Lymphocytes Percent Auto 8.4 % (18.3-44.2); Mean Corpuscular HGB Conc 32.1 g/dl (32-36); Mean Corpuscular Hemoglobin 29.6 pg (26-34); Mean Corpuscular Volume 92.2 fl (80-100); Mean Platelet Volume 9.1 fl (7.4-10.4); Monocytes Absolute Auto 1.6 K/mm3 (0.1-0.6); Monocytes Percent Auto 7.6 % (2.6-8.5); Neutrophils Percent Auto 82.9 % (45.5-73.1); Platelet Count Result 329 k/mm3 (150-375); Red Blood Count 5.27 M/mm3 (4.6-6.20); Red Cell Distribution Width 13.7 % (11.5-14.5); White Blood Count 20.5 K/mm3 (4.5-10.0)
[2022-07-18 09:32] LABS: Alanine Aminotransferase 34 U/L (6-50); Albumin Level 4.5 g/dL (3.5-5.1); Alkaline Phosphatase 113 U/L (38-126); Anion Gap 10 mmol/L (8-16); Aspartate Amino Transferase 38 U/L (17-59); Bilirubin,Total 0.6 mg/dL (0.2-1.3); Blood Urea Nitrogen 20 mg/dL (9-20); Calcium 8.7 mg/dL (8.4-10.2); Carbon Dioxide 29 mmol/L (22-30); Chloride 98 mmol/L (98-107); Estimated CRCL calculation 77 ml/min; Estimated Glomerular Filt Rate > 60; Glucose 111 mg/dL (65-110); Lipase 142 U/L (23-300); Potassium 4.6 mmol/L (3.4-5.0); Sodium 137 mmol/L (137-145)
[2022-07-18] MEDS: ONDANSETRON INJ 4 MG/2 ML VIAL IV PUSH (09:47)
[2022-07-18 10:49] LABS: Influenza A QL RT-PCR Negative (Negative); Influenza B QL RT-PCR Negative (Negative); SARS-CoV-2 RNA PCR Negative
--- NOTE | 2022-07-18 11:31 | PC.NURSE ---
Confirmed with Dr. Samuel that x-ray was good for NG tube. Turned intermittent suction on and observed an abnormal respiration sound. Turned intermittent suction off and notified Dr. Samuel. Upon examining the NG tube it was noticed that the measurement of the NG tube was at 30cm. Per Dr. Samuel NG was advanced to 60cm and x-ray was called to reconfirm placement.
--- NOTE | 2022-07-18 11:44 | ED.ABDPAIN ---
HPI - Abdominal Pain General Chief Complaint: Abdominal Pain Stated Complaint: 3 weeks of vomiting and diarrhea, bloating. Time Seen by Provider: 07/18/22 08:50 History of Present Illness HPI narrative: Patient is a 76-year-old male who presents ER with nausea and vomiting. He is also had some diarrhea. Reports vomiting began 3 weeks ago. He has been seen by primary care doctor. He had an outpatient CT on 07/10/2022 that showed possible adynamic ileus. He reports he is continue to worsen. He reports he mainly vomits but occasionally will have loose stool. No fevers or chills or sweats. No chest pain or chest pressure. No improvement with Linzess. He reports a positive Cologuard and is awaiting to see GI. Related Data Home Medications Medication Instructions Recorded Confirmed acetaminophen 650 mg 650 mg PO TID 04/07/19 07/18/22 tablet,extended release (Tylenol Arthritis Pain) coenzyme Q10 100 mg capsule 100 mg PO DAILY 04/07/19 07/18/22 (CoQ-10) multivitamin 1 cap PO DAILY 04/07/19 07/18/22 cholecalciferol (vitamin D3) 10 500 unit PO DAILY 04/10/19 07/18/22 mcg (400 unit) capsule atorvastatin 20 mg tablet 20 mg PO HS 07/18/22 07/18/22 linaclotide 72 mcg capsule 72 mcg PO 0630 07/18/22 07/18/22 (Linzess) magnesium oxide 500 mg tablet 500 mg PO 4XW 07/18/22 07/18/22 polyethylene glycol 3350 17 gram 17 g PO DAILY 07/18/22 07/18/22 oral powder packet (Miralax) Allergies Allergy/AdvReac Type Severity Reaction Status Date / Time morphine Allergy Unknown Nausea Verified 07/18/22 14:46 Review of Systems Review of Systems: All systems reviewed & are unremarkable except as noted in HPI and below Constitutional: Constitutional: Denies chills and Denies fever(s) ENT: Denies sore throat PMFSH Past Medical History Medical History (Updated 07/18/22 @ 18:28 by Joaquim Samuel MD) Abdominal aortic aneurysm (AAA) without rupture Benign prostatic hyperplasia 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 Subsequent surgery for resection of the redundancy of the left kidney. Coronary artery disease Dyslipidemia Essential hypertension Obstructive sleep apnea on CPAP Surgical History Surgical History (Updated 07/18/22 @ 13:43 by Eloise Galvan PA-C) History of arthroplasty of left hip (2013) History of arthroplasty of left knee (02/2010) History of cataract extraction with lens replacement History of cervical spinal surgery (03/2020) History of left inguinal hernia repair (1985) History of lumbar laminectomy (04/2018) L1-L3 in 04/2018. L4-L5 in 01/2019. History of mandibular surgery (1983) TMJ surgery. Family History Family History (Updated 07/18/22 @ 13:01 by Eloise Galvan PA-C) Mother Cerebrovascular accident, Onset Age: 75 Family history of emphysema Hypertension Father Heart disease Hypertension Sibling Heart disease Hypertension Social History Social History (Updated 07/18/22 @ 13:42 by Eloise Galvan PA-C) Social History: Surrogate medical decision maker: Dawna Jordan, spouse. Code status: Full code. Smoking packs per day: 1 Smoking cigarettes per day: 20.0 Years smoked: 60 Smoking pack-years: 60.00 Smoking status: Former smoker Tobacco type: cigarettes Alcohol intake: never Substance use: never Lack of Transportation: No Lack of Food: Never True Current Housing: I Have Housing Concerned About Future Housing: No Difficulty Paying Gas/Electric Bills: No Difficulty Paying for Meds: No Currently Unemployed: No Education: Trade/Vocational Certificate Difficulty w/ Childcare or Family Care: No Additional living arrangements comments: Lives in [place] with spouse. 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 Spiritual care concerns: No Exam Narrative: GENERAL: Uncomf
--- NOTE | 2022-07-18 12:05 | PC.NURSE ---
Patient has hx of sleep apnea and SPO2 dropped down to 87%. Applied nasal canula at 2L/min.
[2022-07-18] MEDS: SODIUM CHLORIDE 0.9% IV 1,000 ML 100 ML IV CONT ×2 (12:12→22:26)
--- NOTE | 2022-07-18 13:00 | PM.IMHP ---
H&P: HPI History of Present Illness Date/Time: 07/18/22 13:00 Chief Complaint: Abdominal pain. Narrative: This is a 76-year-old male with hypertension no longer on medication, hyperlipidemia, chronic kidney disease, obstructive sleep apnea, and history of abdominal aortic aneurysm status post open repair who presented to the emergency department for evaluation of abdominal pain. Patient provides the following history. He has had intermittent, diffuse abdominal pain for the last 3 weeks. It is mainly a bloating discomfort though he has intermittent knife-like pain in the lower abdomen. He sees no pattern as to when it occurs. He has not noticed any aggravating or alleviating factors. He frequently has nausea and vomiting when the pain occurs and once again last night he slept poorly due to ongoing nausea and vomiting. He has not noticed any blood in the emesis or stool. He denies fever, chills, and sweats. No recent travel, antibiotic use, or sick contacts. He saw his doctor for the symptoms and was prescribed Linzess, MiraLax, and magnesium oxide as he was not having regular bowel movements however that has not made any difference. In fact he has not had a bowel movement for couple of days prior to coming to the ER today. He also had a Cologuard which came back positive and he has been referred to Gastroenterology although he is still waiting an appointment. Abdominal x-ray on 07/10/2022 showed dilated small bowel consistent with ileus versus obstruction and a subsequent CT showed dilated small bowel without focal transition point consistent with ileus. CT today shows air-fluid levels of the small and large bowel suggesting prominent in her colitis and/or adynamic ileus which is increased since Wednesday scan as well as bilateral lower infiltrate and/or atelectasis. An NG tube has since been inserted and he is being admitted for further treatment and evaluation. Regarding the possible infiltrates versus atelectasis on the imaging, he reports being a shallow breather and he has no concerns for pneumonia. However at the time of my evaluation he has some gurgling in the throat and coughs on occasion. He has a history of dysphagia and in fact he had a G-tube following a cervical fusion several years ago. Of note the patient had a bowel movement while in the emergency department and his blood pressure dropped at that time. He was hydrated with fluids with improvement in his blood pressures. There was no loss of consciousness. Review of Systems Review of Systems: Twelve systems were reviewed and are negative except for as per HPI. 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 Subsequent surgery for resection of the redundancy of the left kidney. Coronary artery disease Dyslipidemia Essential hypertension Obstructive sleep apnea on CPAP Surgical History Surgical History (Updated 07/18/22 @ 13:43 by Eloise Galvan PA-C) History of arthroplasty of left hip (2013) History of arthroplasty of left knee (02/2010) History of cataract extraction with lens replacement History of cervical spinal surgery (03/2020) History of left inguinal hernia repair (1985) History of lumbar laminectomy (04/2018) L1-L3 in 04/2018. L4-L5 in 01/2019. History of mandibular surgery (1983) TMJ surgery. Family History Family History (Updated 07/18/22 @ 13:01 by Eloise Galvan PA-C) Mother Cerebrovascular accident, Onset Age: 75 Family history of emphysema Hypertension Father Heart disease Hypertension Sibling Heart disease Hypertension Social History Social History (Updated 07/18/22 @ 13:42 by Eloise Galvan PA-C) Social History: Surrogate medical decision maker: Horacio
[2022-07-18] MEDS: SODIUM CHLORIDE 0.9% IV 1,000 ML 999 ML IV CONT (13:08)
--- NOTE | 2022-07-18 13:10 | PC.NURSE ---
Patient was using commode when his bp started to drop down to 80s/60s. The patient was then helped to the bed where the blood pressure still remained unchanged. The blood pressure cuff was then changed to the other arm where the blood pressure remained the same. REDD Whitman then placed patient into trendelenburg and pressure went up to 99/72. REDD Whitman took a manual blood pressure and obtained a reading of 110/72. Dr. Samuel was notified throughout the process and ordered fluids for the patient.
--- NOTE | 2022-07-18 14:10 | PC.NURSE ---
This patient, Gopal Jordan, was admitted to 3 [facility] Surg Room 306-02. Patient/family oriented to hospital policies and general routines including ID bracelet, bed and alarms, visiting hours, pain management, procedures, bathroom and other care routines, personal items, smoking policy, room service/diet, and visiting hours. Information on how to activate the Rapid Response Team has been discussed. Patient/Family are encouraged to report perceived risks to care and to ask questions if they do not understand what they are told or what they should do.
[2022-07-18 15:31] LABS: Toxigenic C. Diff NEGATIVE (NEGATIVE)
[2022-07-19] MEDS: TAMSULOSIN HCL 0.4 MG CAPSULE PO ×2 (04:39→20:04)
[2022-07-19 06:00] VITALS: BP 112/65; PULSE 95; RESP 20; TEMP 36.7; O2SAT 100
[2022-07-19 07:34] LABS: Hematocrit 41.5 % (42.0-52.0); Hemoglobin 12.8 g/dL (14.0-18.0); Mean Corpuscular HGB Conc 30.8 g/dl (32-36); Mean Corpuscular Hemoglobin 29.1 pg (26-34); Mean Corpuscular Volume 94.3 fl (80-100); Mean Platelet Volume 9.7 fl (7.4-10.4); Platelet Count Result 258 k/mm3 (150-375); Red Cell Distribution Width 14.1 % (11.5-14.5); White Blood Count 10.9 K/mm3 (4.5-10.0)
[2022-07-19 08:03] LABS: Alanine Aminotransferase 28 U/L (6-50); Albumin Level 3.4 g/dL (3.5-5.1); Alkaline Phosphatase 79 U/L (38-126); Anion Gap 3 mmol/L (8-16); Aspartate Amino Transferase 31 U/L (17-59); Bilirubin,Total 0.5 mg/dL (0.2-1.3); Blood Urea Nitrogen 12 mg/dL (9-20); Calcium 7.6 mg/dL (8.4-10.2); Carbon Dioxide 29 mmol/L (22-30); Chloride 103 mmol/L (98-107); Estimated CRCL calculation 86 ml/min; Estimated Glomerular Filt Rate > 60; Glucose 77 mg/dL (65-110); Potassium 4.4 mmol/L (3.4-5.0); Sodium 135 mmol/L (137-145)
[2022-07-19 08:20] VITALS: O2SAT 93
--- NOTE | 2022-07-19 09:12 | PM.IMPN ---
Progress Note: A&P Assessment and Plan (1) Enterocolitis: Code(s): K52.9 - Noninfective gastroenteritis and colitis, unspecified Status: Acute Assessment and Plan: Patient reports abdominal pain x3 weeks with loose stool during that time. He also was taking Linzess, MiraLax, and magnesium oxide as he was not having regular bowel movements. He states irregular bowel movements are chronic but worsened in the past 3-[address] scan with air fluid levels of the small and large bowel suggesting prominent enterocolitis and/or adynamic ileus, increased since in size since imaging 07/10/22. Continue Zosyn 3.375 mg IV Q6 hours GI and General surgery consulted and appreciate recommendations. NPO with IV fluids Continue pain control (2) Ileus: Code(s): K56.7 - Ileus, unspecified Status: Acute Assessment and Plan: Possible Ileus versus obstruction noted on CT scan. Patient presents with abdominal pain x3 weeks, with abdominal distention, N/V prior to admission. No flatus at this time. NG tube placed in ED for decompression. Continue IV fluids and pain control. NPO. General Surgery consulted and appreciate recommendations. He was counseled to ambulate 4-6 times daily. (3) Pulmonary infiltrates: Code(s): R91.8 - Other nonspecific abnormal finding of lung field Status: Acute Assessment and Plan: Possible atelectasis versus lower lobe infiltrates bilaterally. WBC 20 on admission, however, CT also shows enterocolitis. He is requiring 2L NC and noted to have spO2 82% room air this morning, per nursing. Continue Zosyn for above. Encourage incentive spirometry. Respirations are shallow and suspect more likely atelectasis. Wean O2 to keep sats>90% Monitor respiratory status. (4) Transient hypotension: Code(s): I95.9 - Hypotension, unspecified Status: Acute Assessment and Plan: Occurred in the ED, while having a BM. Presumed vasovagal episode. Monitor vitals Q4 hours. (5) Obstructive sleep apnea on CPAP: Code(s): G47.33 - Obstructive sleep apnea (adult) (pediatric); Z99.89 - Dependence on other enabling machines and devices Status: Chronic Assessment and Plan: Initiate PAP therapy when NG tube pulled. (6) UPJ (ureteropelvic junction) obstruction: Code(s): N13.5 - Crossing vessel and stricture of ureter without hydronephrosis Status: Acute Assessment and Plan: Noted on imaging. Possible partial obstruction with severe left renal atrophy. Patient has history of congenital renal atrophy and prior procedure for obstruction n the past, but reports this was in and he has not had any further concerns for obstruction since that time. Unclear acute versus chronic. Consult urology for further evaluation. (7) Benign prostatic hyperplasia: Qualifiers: Lower urinary tract symptom presence: symptoms absent Qualified Code(s): N40.0 - Benign prostatic hyperplasia without lower urinary tract symptoms Code(s): N40.0 - Benign prostatic hyperplasia without lower urinary tract symptoms Status: Chronic Assessment and Plan: Continue tamsulosin. Monitor urine output. Plan CODE STATUS: FULL CODE Disposition: from home. Discharge pending improvement in symptoms and able to tolerate PO. Time Spent With Patient Time: 40 minutes time spent reviewing medical chart, nursing and specialist documentation, labs, vitals, and patient assessment.?All patient and family questions answered to the best of my ability. Subjective Date/time seen: 07/19/22 09:12 Interval history: Patient is a 76-year-old male with hypertension, hyperlipidemia, chronic kidney disease, obstructive sleep apnea, and history of abdominal aortic aneurysm status post open repair who presented to the emergency department for evaluation of abdominal pain. CT scan suggested entercolitis and ileus. He was
[2022-07-19] MEDS: DEXTROSE 5%/0.45% SOD CHL 1,000 ML 100 ML IV CONT ×2 (09:47→20:04)
[2022-07-19 11:18] VITALS: O2SAT 95
[2022-07-19 13:46] LABS: Appearance Urine Slightly Cloudy (Clear); Bilirubin Urine Negative (Negative); Blood Urine Negative (Negative); Color Urine Yellow (Yellow); Glucose Urine UA Negative (Negative); Ketones Urine 2+ mg/dL (Negative); Leukocyte Esterase Ur Negative LEU/UL (Negative); Nitrate Urine Negative (Negative); Protein Urine 1+ mg/dL (Negative); Urobilinogen Urine 0.2 mg/dL (<2.0); pH Urine 5.5 (5.0-9.0)
[2022-07-19 13:54] LABS: Bacteria Urine Trace /hpf; Mucus Urine Rare /lpf; Squamous Epithelial Cell Urine Rare /hpf (Few); Uric Acid Crystals Urine Present /hpf; WBC Urine 0-3 /hpf
[2022-07-19 13:55] LABS: Add Urine Microscopic? YES
[2022-07-19 14:18] VITALS: BP 131/73; PULSE 88; RESP 16; TEMP 37.4; O2SAT 95
--- NOTE | 2022-07-19 15:03 | PM.CNGS ---
Assessment and Plan Assessment and plan (1) Enterocolitis: Code(s): K52.9 - Noninfective gastroenteritis and colitis, unspecified Status: Acute Assessment and Plan: My review of the patient, CT scan and plain films does not show evidence of a bowel obstruction. It seems this is much more consistent with enterocolitis of unknown source. Recommend continuing NG tube and IV fluids. It has been going on quite a long time. I will follow along with you but at present do not see any indication for surgical intervention. (2) History of AAA (abdominal aortic aneurysm) repair: Code(s): Z98.890 - Other specified postprocedural states Status: Chronic Assessment and Plan: Open repair at outside hospital 1 year ago. History of Present Illness Consult details Consult date: 07/19/22 Requesting physician: Joaquim Samuel MD Narrative: Patient is a 76-year-old man with a history of obstructive sleep apnea and chronic kidney disease. He had an open repair of AAA about 1 year ago. His present illness began about 3 weeks ago. It started with alternating nausea vomiting and diarrhea. Vomiting and diarrhea never occurred on the same day but would seemingly have day of nausea and vomiting, followed by day of diarrhea. He was seen by his primary care physician who ordered some routine labs and plain x-rays. A CT scan was done which suggested an ileus. Patient started having bilateral lower quadrant abdominal pain about 8 or 9 days ago. The vomiting, diarrhea and abdominal pain has all been persistent. He came to the emergency room yesterday and was distended with no tenderness and absent bowel sounds. His white blood cell count was [id number]. His CT scan showed markedly dilated small and large bowel with air-fluid levels suggestive of enterocolitis. He was started on IV Zosyn and NG tube was placed. He is seen in consultation regarding his present illness and possibility of bowel obstruction. Patient's NG tube put out 350 cc after being placed yesterday and 400 cc from midnight to 7:00 a.m.. He had 2 bowel movements yesterday but none so far today. He continues to have bilateral lower quadrant abdominal pain. He does feel better as he has had a considerable amount out of his NG tube and is not as distended or bloated. He is seen now in consultation. Review of Systems Review of Systems: All systems reviewed & are unremarkable except as noted in HPI and below (HPI and those items noted below) Constitutional: Constitutional: Denies chills and Denies fever(s) Cardiovascular: Cardiovascular: Denies chest pain, Denies diaphoresis, Denies dyspnea and Denies paroxysmal nocturnal dyspnea Respiratory: Respiratory: Denies chest congestion, Denies cough and Denies dyspnea Integumentary/Breasts: Skin/Breast: Denies lesions and Denies rash 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 Subsequent surgery for resection of the redundancy of the left kidney. Coronary artery disease Dyslipidemia Essential hypertension Obstructive sleep apnea on CPAP Surgical History Surgical History (Updated 07/19/22 @ 15:25 by Víctor Hester MD) History of AAA (abdominal aortic aneurysm) repair 1 year ago at outside hospital History of arthroplasty of left hip (2013) History of arthroplasty of left knee (02/2010) History of cataract extraction with lens replacement History of cervical spinal surgery (03/2020) History of left inguinal hernia repair (1985) History of lumbar laminectomy (04/2018) L1-L3 in 04/2018. L4-L5 in 01/2019. History of mandibular surgery (1983) TMJ surgery. Family History Family History Mother Cerebrovascular accident, Onset Age:
--- NOTE | 2022-07-19 17:35 | WPDGICN ---
Assessment and Plan Assessment and plan (1) Ileus: Code(s): K56.7 - Ileus, unspecified Status: Acute Assessment and Plan: ngt in place no signs of obvious obstruction, evaluated but surgery given findings and chronicity of symptoms, he will need endoscopic evaluation- also had positive cologuard and change in bowel habits- never had colonoscopy (had egd in 2019 when peg placed) will wait another day before giving bowel prep hoping he can tolerate it- still with ngt in place (2) Enterocolitis: Code(s): K52.9 - Noninfective gastroenteritis and colitis, unspecified Status: Acute Assessment and Plan: medical management will need scopes (3) Bowel habit changes: Code(s): R19.4 - Change in bowel habit Status: Acute Assessment and Plan: when no n/v will need colonoscopy (4) Positive colorectal cancer screening using Cologuard test: Code(s): R19.5 - Other fecal abnormalities Status: Acute Assessment and Plan: colonoscopy when he can tolerate prep (5) History of AAA (abdominal aortic aneurysm) repair: Code(s): Z98.890 - Other specified postprocedural states Status: Chronic (6) JAVAN on CPAP: Code(s): G47.33 - Obstructive sleep apnea (adult) (pediatric); Z99.89 - Dependence on other enabling machines and devices Status: Acute GI Consult Note Consult date/time: 07/19/22 17:35 Reason for consult: n/v, enterocolitis HPI: Gopal Jordan is a 76 year old male with history of hyperlipidemia, chronic kidney disease, obstructive sleep apnea, 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 He first noticed constipation for about 2 months ago, started using laxatives and for last 3 weeks with alternating nausea, vomiting and diarrhea.?He jett been dealing with intermittent, diffuse abdominal pain for the last 3 weeks, bloating discomfort but also intermittent knife-like pain in the lower abdomen, no obvious pattern. He was seen by his primary care physician who ordered routine labs and plain x-rays, also ordered bowel regimen treatment for his constipation. Then also had CT scan was done which suggested ileus vs enterocolitis, given antibiotics and because was not keeping food down an NGT was placed. He also had a Cologuard which came back positive. Surgery evaluated patient. He never had a colonoscopy and was in the process to see one. Review of Systems Constitutional: Constitutional: Denies chills Eyes: Eyes: Denies blurry vision ENT: Reports Normal hearing present Cardiovascular: Cardiovascular: Denies chest pain Respiratory: Respiratory: Denies chest congestion Gastrointestinal: Gastrointestinal: Reports abdominal pain, Reports constipation, Reports nausea and Reports vomiting Genitourinary: Genitourinary: Denies hematuria Musculoskeletal: Musculoskeletal: Denies myalgias Integumentary/Breasts: Skin/Breast: Denies dry skin Neurologic: Denies Abnormal speech present Psychiatric: Psychiatric: Denies anxiety PMFSH Past Medical History Medical History (Updated 07/19/22 @ 17:43 by Frankie Villanueva MD) Benign prostatic hyperplasia Bowel habit changes 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 Subsequent surgery for resection of the redundancy of the left kidney. Coronary artery disease Dyslipidemia Essential hypertension Obstructive sleep apnea on CPAP Positive colorectal cancer screening using Cologuard test Surgical History Surgical History (Updated 07/19/22 @ 15:25 by Víctor Hester MD) History of AAA (abdominal aortic aneurysm) repair 1 year ago at outside hospital History of arthroplasty of left hip (2013) History of arthroplasty of left knee (02/2010) History of cataract extraction with lens replacement Hi
[2022-07-19 19:51] VITALS: O2SAT 95
[2022-07-19] MEDS: TOLNAFTATE 1% POWDER 45 GM BTL 1 APPLIC TOPICAL (20:04)
[2022-07-19 21:04] VITALS: BP 120/66; PULSE 90; RESP 18; TEMP 36.4; O2SAT 92
[2022-07-20 05:30] VITALS: BP 129/76; PULSE 96; RESP 16; TEMP 36.2; O2SAT 93
[2022-07-20] MEDS: DEXTROSE 5%/0.45% SOD CHL 1,000 ML 100 ML IV CONT (05:55)
[2022-07-20 06:11] LABS: Hematocrit 39.4 % (42.0-52.0); Hemoglobin 12.4 g/dL (14.0-18.0); Mean Corpuscular HGB Conc 31.5 g/dl (32-36); Mean Corpuscular Volume 92.1 fl (80-100); Mean Platelet Volume 8.6 fl (7.4-10.4); Platelet Count Result 257 k/mm3 (150-375); Red Blood Count 4.28 M/mm3 (4.6-6.20); Red Cell Distribution Width 13.7 % (11.5-14.5); White Blood Count 11.5 K/mm3 (4.5-10.0)
[2022-07-20 06:54] LABS: Anion Gap 3 mmol/L (8-16); Blood Urea Nitrogen 6 mg/dL (9-20); Calcium 7.7 mg/dL (8.4-10.2); Carbon Dioxide 30 mmol/L (22-30); Chloride 98 mmol/L (98-107); Estimated CRCL calculation 111 ml/min; Estimated Glomerular Filt Rate > 60; Glucose 108 mg/dL (65-110); Potassium 3.5 mmol/L (3.4-5.0); Sodium 131 mmol/L (137-145)
[2022-07-20 08:15] VITALS: O2SAT 92
[2022-07-20] MEDS: TOLNAFTATE 1% POWDER 45 GM BTL 1 APPLIC TOPICAL ×2 (08:19→21:37)
--- NOTE | 2022-07-20 09:53 | P.PNIM_ITS ---
Progress Note: A&P Assessment and Plan (1) Enterocolitis: Code(s): K52.9 - Noninfective gastroenteritis and colitis, unspecified Status: Acute Assessment and Plan: Patient reports abdominal pain x3 weeks with loose stool during that time. He also was taking Linzess, MiraLax, and magnesium oxide as he was not having regular bowel movements. He states irregular bowel movements are chronic but worsened in the past 3-4 months. * CT scan with air fluid levels of the small and large bowel suggesting prominent enterocolitis and/or adynamic ileus, increased since in size since imaging 07/10/22. * Continue Zosyn 3.375 mg IV Q6 hours * GI and General surgery consulted and appreciate recommendations. * NPO with IV fluids * Continue pain control - acetaminophen IV and Fentanyl IV PRN. Morphine allergy documented. (2) Ileus: Code(s): K56.7 - Ileus, unspecified Status: Acute Assessment and Plan: Possible Ileus versus obstruction noted on CT scan. Patient presents with abdominal pain x3 weeks, with abdominal distention, N/V prior to admission. * No flatus at this time. * NG tube placed in ED for decompression. * Continue IV fluids and pain control. * NPO. * General Surgery consulted and appreciate recommendations. * ambulate 4-6 times daily. * 07/20 KUB with persistent dilated small bowel loops. No flatus. (3) Pulmonary infiltrates: Code(s): R91.8 - Other nonspecific abnormal finding of lung field Status: Acute Assessment and Plan: Possible atelectasis versus lower lobe infiltrates bilaterally. WBC 20 on admission, however, CT also shows enterocolitis. * He is requiring 2L NC and noted to have spO2 82% room air this morning, per nursing. * Continue Zosyn for above. * Encourage incentive spirometry. * Respirations are shallow and suspect more likely atelectasis. * Wean O2 to keep sats>90% * Monitor respiratory status. * Chest x-ray in am. * consider adding Azithromycin if patient continues to require supplemental O2 and leukocytosis. (4) Transient hypotension: Code(s): I95.9 - Hypotension, unspecified Status: Acute Assessment and Plan: Occurred in the ED, while having a BM. Presumed vasovagal episode. * Monitor vitals Q4 hours. * Vitals stable. (5) Obstructive sleep apnea on CPAP: Code(s): G47.33 - Obstructive sleep apnea (adult) (pediatric); Z99.89 - Dependence on other enabling machines and devices Status: Chronic Assessment and Plan: Initiate PAP therapy when NG tube pulled. (6) UPJ (ureteropelvic junction) obstruction: Code(s): N13.5 - Crossing vessel and stricture of ureter without hydronephrosis Status: Acute Assessment and Plan: Noted on imaging. Possible partial obstruction with severe left renal atrophy. Patient has history of congenital renal atrophy and prior procedure for obstruction n the past, but reports this was in and he has not had any further concerns for obstruction since that time. * Unclear acute versus chronic. * Consult urology for further evaluation. (7) Benign prostatic hyperplasia: Qualifiers: Lower urinary tract symptom presence: symptoms absent Qualified Code(s): N40.0 - Benign prostatic hyperplasia without lower urinary tract symptoms Code(s): N40.0 - Benign prostatic hyperplasia without lower urinary tract symptoms Status: Chronic Assessment and Plan: Continue tamsulosin. Urinary retention overnight. Bladder scan with approximately 800 mL documented in nursing notes overnight.
--- NOTE | 2022-07-20 09:53 | PM.IMPN ---
Progress Note: A&P Assessment and Plan (1) Enterocolitis: Code(s): K52.9 - Noninfective gastroenteritis and colitis, unspecified Status: Acute Assessment and Plan: Patient reports abdominal pain x3 weeks with loose stool during that time. He also was taking Linzess, MiraLax, and magnesium oxide as he was not having regular bowel movements. He states irregular bowel movements are chronic but worsened in the past 3-[address] scan with air fluid levels of the small and large bowel suggesting prominent enterocolitis and/or adynamic ileus, increased since in size since imaging 07/10/22. Continue Zosyn 3.375 mg IV Q6 hours GI and General surgery consulted and appreciate recommendations. NPO with IV fluids Continue pain control - acetaminophen IV and Fentanyl IV PRN. Morphine allergy documented. (2) Ileus: Code(s): K56.7 - Ileus, unspecified Status: Acute Assessment and Plan: Possible Ileus versus obstruction noted on CT scan. Patient presents with abdominal pain x3 weeks, with abdominal distention, N/V prior to admission. No flatus at this time. NG tube placed in ED for decompression. Continue IV fluids and pain control. NPO. General Surgery consulted and appreciate recommendations. ambulate 4-6 times daily. 07/20 KUB with persistent dilated small bowel loops. No flatus. (3) Pulmonary infiltrates: Code(s): R91.8 - Other nonspecific abnormal finding of lung field Status: Acute Assessment and Plan: Possible atelectasis versus lower lobe infiltrates bilaterally. WBC 20 on admission, however, CT also shows enterocolitis. He is requiring 2L NC and noted to have spO2 82% room air this morning, per nursing. Continue Zosyn for above. Encourage incentive spirometry. Respirations are shallow and suspect more likely atelectasis. Wean O2 to keep sats>90% Monitor respiratory status. Chest x-ray in am. consider adding Azithromycin if patient continues to require supplemental O2 and leukocytosis. (4) Transient hypotension: Code(s): I95.9 - Hypotension, unspecified Status: Acute Assessment and Plan: Occurred in the ED, while having a BM. Presumed vasovagal episode. Monitor vitals Q4 hours. Vitals stable. (5) Obstructive sleep apnea on CPAP: Code(s): G47.33 - Obstructive sleep apnea (adult) (pediatric); Z99.89 - Dependence on other enabling machines and devices Status: Chronic Assessment and Plan: Initiate PAP therapy when NG tube pulled. (6) UPJ (ureteropelvic junction) obstruction: Code(s): N13.5 - Crossing vessel and stricture of ureter without hydronephrosis Status: Acute Assessment and Plan: Noted on imaging. Possible partial obstruction with severe left renal atrophy. Patient has history of congenital renal atrophy and prior procedure for obstruction n the past, but reports this was in and he has not had any further concerns for obstruction since that time. Unclear acute versus chronic. Consult urology for further evaluation. (7) Benign prostatic hyperplasia: Qualifiers: Lower urinary tract symptom presence: symptoms absent Qualified Code(s): N40.0 - Benign prostatic hyperplasia without lower urinary tract symptoms Code(s): N40.0 - Benign prostatic hyperplasia without lower urinary tract symptoms Status: Chronic Assessment and Plan: Continue tamsulosin. Urinary retention overnight. Bladder scan with approximately 800 mL documented in nursing notes overnight. farris catheter was placed with -1L immediate urine return. Plan CODE STATUS: FULL CODE Disposition: from home. Discharge pending improvement in symptoms and able to tolerate PO. Time Spent With Patient Time: 35 minutes time spent reviewing medical chart, nursing and specialist documentation, labs, vitals, and patient assessment.? Subjective Date/time seen: 07/20/22 09:5
[2022-07-20] MEDS: KCL 20 MEQ/D5/0.9% SOD CHL 1,000 ML 100 ML IV CONT ×2 (11:51→23:03)
--- NOTE | 2022-07-20 12:23 | WPDGIPROGNO ---
Progress Note: A&P Assessment and Plan (1) Nausea and vomiting in adult: Code(s): R11.2 - Nausea with vomiting, unspecified Status: Acute Assessment and Plan: ngt still in place no nausea will do EGD in am (2) Bowel habit changes: Code(s): R19.4 - Change in bowel habit Status: Acute Assessment and Plan: change in bowel habits for almost 2 months and it is my understanding that he also had + cologuard hope he can tolerate bowel prep today so I can do colonoscopy tomorrow, we need to assess for malignancy surgery on board (3) Enterocolitis: Code(s): K52.9 - Noninfective gastroenteritis and colitis, unspecified Status: Acute (4) Ileus: Code(s): K56.7 - Ileus, unspecified Status: Acute (5) Positive colorectal cancer screening using Cologuard test: Code(s): R19.5 - Other fecal abnormalities Status: Acute Subjective Date/time seen: 07/20/22 12:23 Interval history: last time had diarrhea was 2 days ago, still with abdominal discomfort, no vomiting but NGT still in place Review of Systems Review of Systems: All systems reviewed & are unremarkable except as noted in HPI and below Exam Const: General: cooperative, comfortable, alert, awake and tired appearing Nutritional Appearance: overweight Orientation/consciousness: patient oriented x3 HENMT: Head: normocephalic and atraumatic Mouth: Yes Normal oral and palatal mucosa present Other: NGT in place Eyes: Conjunctivae: conjunctivae normal Pupils: Equal, round and reactive pupils present EOM: EOMs intact bilaterally Neck: Neck: normal visual inspection Resp: Effort & Inspection: normal respiratory effort Auscultation: clear to auscultation bilaterally Cardio: Rate: regular rate Rhythm: regular rhythm GI: Inspection: distended, scar (Midline scar from AAA repair) and no visible herniation GI Palp: Yes Soft to palpation, Yes Tenderness to palpation present (GI) (Both lower quadrants), No Guarding due to palpation present (GI) and No Rebound tenderness present Skin: Lesions: no lesions Neuro: General: no focal motor deficits Speech: normal speech Motor exam (neuro): 5/5 motor strength present throughout and Motor abnormalities not present Extrem: General: no clubbing, cyanosis or edema and edema Psych: Affect: normal affect Thought process: Normal thought process present Insight: Good insight present (Psych) Objective Data Vital Signs Vital Signs: Vital Signs - 24 hr 07/19/22 14:18 07/19/22 19:51 07/19/22 21:04 Temperature 99.4 F 97.6 F Pulse Rate 88 90 Respiratory Rate 16 18 Blood Pressure 131/73 120/66 Pulse Oximetry 95 95 92 Oxygen Delivery Nasal Cannula Oxygen Flow Rate 2 07/20/22 05:30 Temperature 97.2 F L Pulse Rate 96 Respiratory Rate 16 Blood Pressure 129/76 Pulse Oximetry 93 Oxygen Delivery Oxygen Flow Rate Intake/Output Intake/Output: Intake & Output 07/17/22 07/18/22 07/19/22 07/20/22 23:59 23:59 23:59 23:59 Intake Total 2100 2542 1100 Output Total 350 1250 1050 Balance 1750 1292 50 Meds/Results Medications: Active Medications Generic Name Dose Route Start Last Admin Trade Name Freq PRN Reason Stop Dose Admin Bisacodyl 20 mg 07/20/22 18:00 Bisacodyl 5 Mg Tablet Ec PO 07/20/22 18:01 ONCE ONE Fentanyl Citrate 25 mcg 07/20/22 10:07 Fentanyl Citrate Inj (*Crx) 100 Mcg/2 Ml Vial IV PUSH Q4H PRN Pain Rated 6 or Greater Piperacillin/Tazobactam/Dextrose 3.375 gm in 50 mls @ 100 mls/hr 07/18/22 18:00 07/20/22 11:52 Zosyn 3.375 Gm/D5w 50ml Pm IVPB 100 mls/hr Q6H VAMSI Administration Potassium Chloride/Dextrose/Sod Cl 1,000 mls @ 100 mls/hr 07/20/22 10:00 07/20/22 11:51 Kcl 20 Meq/D5/0.9% Sod Chl IV CONT 100 mls/hr .Q10H VAMSI Administration Ondansetron HCl 4 mg 07/18/22 11:46 Ondansetron Inj 4 Mg/2 Ml Vial IV PUSH Q4H PRN Nausea Polyethylene Glycol 238 gm
--- NOTE | 2022-07-20 12:51 | PM.PNGS ---
Progress Note: A&P Assessment and Plan (1) Enterocolitis: Code(s): K52.9 - Noninfective gastroenteritis and colitis, unspecified Status: Acute Assessment and Plan: seems to be improving. Diarrhea has stopped. He remains very distended and has a lot small-bowel dilatation on plain films. He is starting to have some bowel sounds. Overall this seems to be improving. He is scheduled to have endoscopy tomorrow with Dr. Rivas. This may make his abdominal distension worse but hopefully we will have a better idea regarding the source of his present illness. (2) History of AAA (abdominal aortic aneurysm) repair: Code(s): Z98.890 - Other specified postprocedural states Status: Chronic Assessment and Plan: One year ago. No hernia. May still be a small bowel obstruction but more likely enterocolitis as above. Subjective Subjective Date/Time Seen: 07/20/22 12:51 Patient reports: feels better ( much less distended and uncomfortable), still having pain ( Both lower quadrants, a little less than before), no flatus, no bowel movement ( diarrhea has gone) and afebrile Review of Systems Review of Systems: All systems reviewed & are unremarkable except as noted in HPI and below ( HPI and those items noted below) Constitutional: Constitutional: Denies chills and Denies fever(s) Cardiovascular: Cardiovascular: Denies chest pain, Denies diaphoresis, Denies dyspnea and Denies paroxysmal nocturnal dyspnea Respiratory: Respiratory: Denies chest congestion, Denies cough and Denies dyspnea Integumentary/Breasts: Skin/Breast: Denies lesions and Denies rash Exam Const: General: comfortable and no acute distress; No confusion Orientation/consciousness: patient oriented x3 and No confusion GI: Inspection: distended, scar and no visible herniation GI Palp: Yes Soft to palpation, Yes Tenderness to palpation present (GI) ( lower quadrants, less than yesterday), No Guarding due to palpation present (GI), No Hernia present, No Palpable mass present and No Rebound tenderness present Auscultation: Hypoactive bowel sounds present Neuro: General: patient oriented x3, no focal motor deficits and No confusion Extrem: General: no calf tenderness and no edema Psych: Affect: normal affect Insight: Good insight present (Psych) Judgement: Good judgement present (Psych) Objective Data Vital Signs Vital Signs: Vital Signs - 24 hr 07/19/22 14:18 07/19/22 19:51 07/19/22 21:04 Temperature 37.4 C 36.4 C Pulse Rate 88 90 Respiratory Rate 16 18 Blood Pressure 131/73 120/66 Pulse Oximetry 95 95 92 Oxygen Delivery Nasal Cannula Oxygen Flow Rate 2 07/20/22 05:30 07/20/22 08:15 Temperature 36.2 C L Pulse Rate 96 Respiratory Rate 16 Blood Pressure 129/76 Pulse Oximetry 93 92 Oxygen Delivery Nasal Cannula Oxygen Flow Rate 2 Intake/Output Intake/Output: Intake & Output 07/17/22 07/18/22 07/19/22 07/20/22 23:59 23:59 23:59 23:59 Intake Total 2100 2542 1150 Output Total 350 1250 1050 Balance 1750 1292 100 Meds/Results Medications: Active Medications Generic Name Dose Route Start Last Admin Trade Name Freq PRN Reason Stop Dose Admin Bisacodyl 20 mg 07/20/22 18:00 Bisacodyl 5 Mg Tablet Ec PO 07/20/22 18:01 ONCE ONE Fentanyl Citrate 25 mcg 07/20/22 10:07 Fentanyl Citrate Inj (*Crx) 100 Mcg/2 Ml Vial IV PUSH Q4H PRN Pain Rated 6 or Greater Piperacillin/Tazobactam/Dextrose 3.375 gm in 50 mls @ 100 mls/hr 07/18/22 18:00 07/20/22 12:22 Zosyn 3.375 Gm/D5w 50ml Pm IVPB Infused Q6H VAMSI Infusion Potassium Chloride/Dextrose/Sod Cl 1,000 mls @ 100 mls/hr 07/20/22 10:00 07/20/22 11:51 Kcl 20 Meq/D5/0.9% Sod Chl IV CONT 100 mls/hr .Q10H VAMSI Administration Ondansetron HCl 4 mg 07/18/22 11:46 Ondansetron Inj 4 Mg/2 Ml Vial IV PUSH Q4H PRN Nausea Polyethylene Glycol 238 gm 07/20/22 18:00 Polyethylene Glycol 3350
[2022-07-20 13:39] VITALS: BP 131/73; PULSE 88; RESP 16; TEMP 35.7; O2SAT 96
[2022-07-20] MEDS: ENOXAPARIN 40 MG/0.4 ML SYRINGE SUB-Q (13:48)
[2022-07-20] MEDS: polyethylene glycoL 3350 238 GM BOTTLE PO (15:04)
--- NOTE | 2022-07-20 16:18 | WPDURCON ---
Assessment and Plan Assessment and plan (1) Retention of urine: Code(s): R33.9 - Retention of urine, unspecified Status: Acute Assessment and Plan: Keep farris in for 7-10 days then we will plan a voiding trial. (2) BPH (benign prostatic hyperplasia): Code(s): N40.0 - Benign prostatic hyperplasia without lower urinary tract symptoms Status: Acute Assessment and Plan: Patient will need to start Tamsulosin and Finasteride when he is no longer NPO. He will continue these indefinitely. (3) UTI (urinary tract infection): Code(s): N39.0 - Urinary tract infection, site not specified Status: Acute Assessment and Plan: Continue Zosyn, if urine doesn't clear, may need to get a urine culture. No further evaluation at this time. F/U in the office in 1-2 weeks for voiding trial. Urology Consult Note HPI Date Seen: 07/20/22 Time Seen: 16:18 Requesting Physician: Fernando Helms MD Primary Care Provider: Bal Tomas MD Consult Narrative Narrative: Gopal Jordan is a 76 year old male who was seen in the ER on 07/18/22 for acute onset of nausea, vomiting and occult blood in his stool x 3 weeks. He was noted incidentally to have urinary retention with 1L of urine drained upon insertion. His UA is suspicious of a UTI, but no culture was sent and Zosyn was started therefore a culture at this time would be irrelevant. His WBC is 11.5, creatinine 0.60. A CT scan was done showing left renal atrophy and bilateral non obstructive stones and cysts. He states he has never had any problems with urination but does have a slow stream and gets up 2x/night to urinate. He has never taken any medications for BPH or OAB and denies a history of recurrent UTI. 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 Subsequent surgery for resection of the redundancy of the left kidney. Coronary artery disease Dyslipidemia Essential hypertension Nausea and vomiting in adult Obstructive sleep apnea on CPAP Positive colorectal cancer screening using Cologuard test Surgical History Surgical History (Updated 07/19/22 @ 15:25 by Víctor Hester MD) History of AAA (abdominal aortic aneurysm) repair 1 year ago at outside hospital History of arthroplasty of left hip (2013) History of arthroplasty of left knee (02/2010) History of cataract extraction with lens replacement History of cervical spinal surgery (03/2020) History of left inguinal hernia repair (1985) History of lumbar laminectomy (04/2018) L1-L3 in 04/2018. L4-L5 in 01/2019. History of mandibular surgery (1983) TMJ surgery. Family History Family History Mother Cerebrovascular accident, Onset Age: 75 Family history of emphysema Hypertension Father Heart disease Hypertension Sibling Heart disease Hypertension Social History Social History Social History: Surrogate medical decision maker: Dawna Jordan, spouse. Code status: Full code. Smoking packs per day: 1 Smoking cigarettes per day: 20.0 Years smoked: 60 Smoking pack-years: 60.00 Smoking status: Former smoker Tobacco type: cigarettes Alcohol intake: never Substance use: never Lack of Transportation: No Lack o
[2022-07-20 20:00] VITALS: PULSE 88; RESP 16; O2SAT 96
[2022-07-20] MEDS: BISACODYL 5 MG TABLET EC 20 MG PO (21:41)
[2022-07-20 21:47] VITALS: PULSE 88; RESP 16; O2SAT 96
[2022-07-20 22:00] VITALS: BP 136/84; PULSE 91; RESP 20; TEMP 36.8; O2SAT 96
[2022-07-21] VITALS (11 sets, daily range): BP systolic 108–142; BP diastolic 59–98; PULSE 56–97; RESP 14–25; TEMP 36.5–37; O2SAT 91–98
[2022-07-21 06:22] LABS: Hemoglobin 12.6 g/dL (14.0-18.0); Mean Corpuscular HGB Conc 31.5 g/dl (32-36); Mean Corpuscular Hemoglobin 29.2 pg (26-34); Mean Corpuscular Volume 92.6 fl (80-100); Mean Platelet Volume 8.8 fl (7.4-10.4); Platelet Count Result 280 k/mm3 (150-375); Red Blood Count 4.32 M/mm3 (4.6-6.20); Red Cell Distribution Width 13.5 % (11.5-14.5)
[2022-07-21 06:39] LABS: Anion Gap 4 mmol/L (8-16); Blood Urea Nitrogen 3 mg/dL (9-20); Calcium 7.8 mg/dL (8.4-10.2); Carbon Dioxide 32 mmol/L (22-30); Chloride 98 mmol/L (98-107); Estimated CRCL calculation 111 ml/min; Estimated Glomerular Filt Rate > 60; Glucose 108 mg/dL (65-110); Potassium 3.5 mmol/L (3.4-5.0); Sodium 134 mmol/L (137-145)
[2022-07-21] MEDS: polyethylene glycoL 3350 238 GM BOTTLE 119 GM FEED TUBE (07:55)
[2022-07-21] MEDS: ENOXAPARIN 40 MG/0.4 ML SYRINGE SUB-Q (07:58)
[2022-07-21] MEDS: TOLNAFTATE 1% POWDER 45 GM BTL 1 APPLIC TOPICAL ×2 (07:59→20:51)
--- NOTE | 2022-07-21 10:55 | P.PNIM_ITS ---
Progress Note: A&P Assessment and Plan (1) Enterocolitis: Code(s): K52.9 - Noninfective gastroenteritis and colitis, unspecified Status: Acute Assessment and Plan: Patient reports abdominal pain x3 weeks with loose stool during that time. He also was taking Linzess, MiraLax, and magnesium oxide as he was not having regular bowel movements. He states irregular bowel movements are chronic but worsened in the past 3-4 months. * CT scan with air fluid levels of the small and large bowel suggesting prominent enterocolitis and/or adynamic ileus, increased since in size since imaging 07/10/22. * Continue Zosyn 3.375 mg IV Q6 hours * GI and General surgery consulted and appreciate recommendations. * NPO with IV fluids * Continue pain control - acetaminophen IV and Fentanyl IV PRN. Morphine allergy documented. * Plan for EGD and colonoscopy today. (2) Ileus: Code(s): K56.7 - Ileus, unspecified Status: Acute Assessment and Plan: Possible Ileus versus obstruction noted on CT scan. Patient presents with abdominal pain x3 weeks, with abdominal distention, N/V prior to admission. * No flatus at this time. * NG tube placed in ED for decompression. * Continue IV fluids and pain control. * NPO. * General Surgery consulted and appreciate recommendations. * ambulate 4-6 times daily. * 07/20 KUB with persistent dilated small bowel loops. No flatus. * 07/21 KUB unchanged. He reports 3 BMs since starting bowel prep last night. (3) Pulmonary infiltrates: Code(s): R91.8 - Other nonspecific abnormal finding of lung field Status: Acute Assessment and Plan: Possible atelectasis versus lower lobe infiltrates bilaterally. WBC 20 on admission, however, CT also shows enterocolitis. * He is requiring 2L NC and noted to have spO2 82% room air this morning, per nursing. * Continue Zosyn for above. * Encourage incentive spirometry. * Respirations are shallow and suspect more likely atelectasis. * Wean O2 to keep sats>90% * Monitor respiratory status. * Chest x-ray in am- clear lungs and elevated right hemidiaphragm. Reassess when symptoms resolve to ensure not paralyzed diaphragm * consider adding Azithromycin if patient continues to require supplemental O2 and leukocytosis. WBC 9. (4) Transient hypotension: Code(s): I95.9 - Hypotension, unspecified Status: Acute Assessment and Plan: Occurred in the ED, while having a BM. Presumed vasovagal episode. * Monitor vitals Q4 hours. * Vitals stable. (5) Obstructive sleep apnea on CPAP: Code(s): G47.33 - Obstructive sleep apnea (adult) (pediatric); Z99.89 - Dependence on other enabling machines and devices Status: Chronic Assessment and Plan: Initiate PAP therapy when NG tube pulled. (6) UPJ (ureteropelvic junction) obstruction: Code(s): N13.5 - Crossing vessel and stricture of ureter without hydronephrosis Status: Acute Assessment and Plan: Noted on imaging. Possible partial obstruction with severe left renal atrophy. Patient has history of congenital renal atrophy and prior procedure for obstruction n the past, but reports this was in and he has not had any further concerns for obstruction since that time. * Unclear acute versus chronic. * Consult urology for further evaluation. (7) Benign prostatic hyperplasia: Qualifiers: Lower urinary tract symptom presence: symptoms absent Qualified Code(s): N40.0 - Benign prostatic hyperplasia without lower urinary tract symptoms Code(s): N40.0 - Benign prostat
--- NOTE | 2022-07-21 10:55 | PM.IMPN ---
Progress Note: A&P Assessment and Plan (1) Enterocolitis: Code(s): K52.9 - Noninfective gastroenteritis and colitis, unspecified Status: Acute Assessment and Plan: Patient reports abdominal pain x3 weeks with loose stool during that time. He also was taking Linzess, MiraLax, and magnesium oxide as he was not having regular bowel movements. He states irregular bowel movements are chronic but worsened in the past 3-[address] scan with air fluid levels of the small and large bowel suggesting prominent enterocolitis and/or adynamic ileus, increased since in size since imaging 07/10/22. Continue Zosyn 3.375 mg IV Q6 hours GI and General surgery consulted and appreciate recommendations. NPO with IV fluids Continue pain control - acetaminophen IV and Fentanyl IV PRN. Morphine allergy documented. Plan for EGD and colonoscopy today. (2) Ileus: Code(s): K56.7 - Ileus, unspecified Status: Acute Assessment and Plan: Possible Ileus versus obstruction noted on CT scan. Patient presents with abdominal pain x3 weeks, with abdominal distention, N/V prior to admission. No flatus at this time. NG tube placed in ED for decompression. Continue IV fluids and pain control. NPO. General Surgery consulted and appreciate recommendations. ambulate 4-6 times daily. 07/20 KUB with persistent dilated small bowel loops. No flatus. 07/21 KUB unchanged. He reports 3 BMs since starting bowel prep last night. (3) Pulmonary infiltrates: Code(s): R91.8 - Other nonspecific abnormal finding of lung field Status: Acute Assessment and Plan: Possible atelectasis versus lower lobe infiltrates bilaterally. WBC 20 on admission, however, CT also shows enterocolitis. He is requiring 2L NC and noted to have spO2 82% room air this morning, per nursing. Continue Zosyn for above. Encourage incentive spirometry. Respirations are shallow and suspect more likely atelectasis. Wean O2 to keep sats>90% Monitor respiratory status. Chest x-ray in am- clear lungs and elevated right hemidiaphragm. Reassess when symptoms resolve to ensure not paralyzed diaphragm consider adding Azithromycin if patient continues to require supplemental O2 and leukocytosis. WBC 9. (4) Transient hypotension: Code(s): I95.9 - Hypotension, unspecified Status: Acute Assessment and Plan: Occurred in the ED, while having a BM. Presumed vasovagal episode. Monitor vitals Q4 hours. Vitals stable. (5) Obstructive sleep apnea on CPAP: Code(s): G47.33 - Obstructive sleep apnea (adult) (pediatric); Z99.89 - Dependence on other enabling machines and devices Status: Chronic Assessment and Plan: Initiate PAP therapy when NG tube pulled. (6) UPJ (ureteropelvic junction) obstruction: Code(s): N13.5 - Crossing vessel and stricture of ureter without hydronephrosis Status: Acute Assessment and Plan: Noted on imaging. Possible partial obstruction with severe left renal atrophy. Patient has history of congenital renal atrophy and prior procedure for obstruction n the past, but reports this was in and he has not had any further concerns for obstruction since that time. Unclear acute versus chronic. Consult urology for further evaluation. (7) Benign prostatic hyperplasia: Qualifiers: Lower urinary tract symptom presence: symptoms absent Qualified Code(s): N40.0 - Benign prostatic hyperplasia without lower urinary tract symptoms Code(s): N40.0 - Benign prostatic hyperplasia without lower urinary tract symptoms Status: Chronic Assessment and Plan: Continue tamsulosin. Urinary retention overnight. Bladder scan with approximately 800 mL documented in nursing notes overnight. farris catheter was placed with -1L immediate urine return. Tamsulosin and finasteride to be initiated when NG tube removed. Keep farris 7-10 days following
[2022-07-21] MEDS: KCL 20 MEQ/D5/0.9% SOD CHL 1,000 ML 100 ML IV CONT (11:42)
--- NOTE | 2022-07-21 12:50 | PM.PNGS ---
Progress Note: A&P Assessment and Plan (1) Enterocolitis: Code(s): K52.9 - Noninfective gastroenteritis and colitis, unspecified Status: Acute Assessment and Plan: Seems to be improving, but still appears distended with dilated small bowel on his plain films. He is being prepped for endoscopy today by Dr. Rivas. He has tolerated the prep and bowels are moving. Stools studies are negative. Will await results from endoscopy today. (2) History of AAA (abdominal aortic aneurysm) repair: Code(s): Z98.890 - Other specified postprocedural states Status: Chronic Plan I have discussed the patient's case and plan of care with Dr. Hester. Subjective Subjective Date/Time Seen: 07/21/22 11:10 Patient reports: no new complaints Interval history: Chart reviewed. Patient has no specific complaints today. He has received bowel prep last night and this morning for a colonoscopy today. He still has his NG tube and has had the prep through the NG. He is tolerating this well and is moving his bowels. No nausea or vomiting. He denies abdominal pain today. Exam Const: General: comfortable and no acute distress Nutritional Appearance: obese Orientation/consciousness: patient oriented x3 GI: Inspection: distended GI Palp: Yes Soft to palpation, No Tenderness to palpation present (GI) and No Guarding due to palpation present (GI) Auscultation: normal bowel sounds Objective Data Vital Signs Vital Signs: Vital Signs - 24 hr 07/20/22 13:39 07/20/22 20:00 07/20/22 21:47 Temperature 96.2 F L Pulse Rate 88 88 88 Respiratory Rate 16 16 16 Blood Pressure 131/73 Pulse Oximetry 96 96 96 Oxygen Delivery Nasal Cannula Nasal Cannula Oxygen Flow Rate 2 2 Fraction of Inspired Oxygen 07/20/22 22:00 07/21/22 04:54 07/21/22 07:25 Temperature 98.2 F 98.6 F Pulse Rate 91 97 56 L Respiratory Rate 20 20 16 Blood Pressure 136/84 142/98 H Pulse Oximetry 96 95 91 Oxygen Delivery Nasal Cannula Oxygen Flow Rate 2 Fraction of Inspired Oxygen 07/21/22 07:55 Temperature Pulse Rate Respiratory Rate Blood Pressure Pulse Oximetry 92 Oxygen Delivery Nasal Cannula Oxygen Flow Rate 2 Fraction of Inspired Oxygen Intake/Output Intake/Output: Intake & Output 02/25/23 07/19/22 07/20/22 07/21/22 23:59 23:59 23:59 23:59 Intake Total 2100 2542 2850 2150 Output Total 350 1250 2000 800 Balance 1750 3010 565 4157 Meds/Results Medications: Active Medications Generic Name Dose Route Start Last Admin Trade Name Freq PRN Reason Stop Dose Admin Enoxaparin Sodium 40 mg 07/21/22 09:00 07/21/22 07:58 Enoxaparin 40 Mg/0.4 Ml Syringe SUB-Q 40 mg DAILY VAMSI Administration Fentanyl Citrate 25 mcg 07/20/22 10:07 Fentanyl Citrate Inj (*Crx) 100 Mcg/2 Ml Vial IV PUSH Q4H PRN Pain Rated 6 or Greater Piperacillin/Tazobactam/Dextrose 3.375 gm in 50 mls @ 100 mls/hr 07/18/22 18:00 07/21/22 11:47 Zosyn 3.375 Gm/D5w 50ml Pm IVPB 100 mls/hr Q6H VAMSI Administration Potassium Chloride/Dextrose/Sod Cl 1,000 mls @ 100 mls/hr 07/20/22 10:00 07/21/22 11:42 Kcl 20 Meq/D5/0.9% Sod Chl IV CONT 100 mls/hr .Q10H VAMSI Administration Ondansetron HCl 4 mg 07/18/22 11:46 Ondansetron Inj 4 Mg/2 Ml Vial IV PUSH Q4H PRN Nausea Saliva Substitute 15 ml 07/20/22 11:00 Saliva Substitute Rinse 473 Ml Bottle PO QID PRN Dry Mouth Sodium Chloride 1 spray 07/20/22 11:00 Saline 0.65% Alin Soln 44 Ml Btl NASAL Q6HR PRN Congestion Tamsulosin HCl 0.4 mg 07/19/22 04:25 07/19/22 20:04 Tamsulosin Hcl 0.4 Mg Capsule PO 0.4 mg QHS VAMSI Administration Tolnaftate 1 applic 07/19/22 21:00 07/21/22 07:59 Tolnaftate 1% Powder 45 Gm Btl TOPICAL 08/02/22 20:59 1 applic Q12HR VAMSI Administration Radiology Results: ITS Impressions Abdomen/Pelvis CT 07/18/22 10:21 IMPRESSION: Air fluid levels of the small and larg
--- NOTE | 2022-07-21 14:10 | PC.NURSE ---
To GI Lab via [employer].
[2022-07-21] MEDS: LACTATED RINGERS 1,000 ML 150 ML IV CONT (14:22)
--- NOTE | 2022-07-21 14:23 | WPDANESEPPF ---
Anes - Initial Pre Proc Eval Procedure: Operation Date: 07/21/22 15:00 Proposed Procedures p Esophagogastroduodenoscopy & Colonoscopy - Frankie Villanueva MD Date/Time: 07/21/22 14:23 Surgeon: Fernando Helms MD Pre Op Diagnosis: ileus, vomitting Patient Data Age: 76 Gender: M Height: 1.78 m Weight: 111.2 kg Last Vital Signs Temp 36.8 C 07/21/22 13:48 Pulse 94 07/21/22 13:48 Resp 22 H 07/21/22 13:48 BP 119/59 L 07/21/22 13:48 Pulse Ox 98 07/21/22 13:48 O2 Del Method Nasal Cannula 07/21/22 07:55 O2 Flow Rate 2 07/21/22 07:55 FiO2 28 07/20/22 21:47 Allergies Allergy/AdvReac Type Severity Reaction Status Date / Time morphine Allergy Unknown Nausea Verified 07/21/22 14:19 Home Medications Medication Instructions Recorded Confirmed Type acetaminophen 650 mg 650 mg PO TID 04/07/19 07/21/22 History tablet,extended release (Tylenol Arthritis Pain) coenzyme Q10 100 mg capsule 100 mg PO DAILY 04/07/19 07/21/22 History (CoQ-10) multivitamin 1 cap PO DAILY 04/07/19 07/21/22 History cholecalciferol (vitamin D3) 10 500 unit PO DAILY 04/10/19 07/21/22 History mcg (400 unit) capsule atorvastatin 20 mg tablet 20 mg PO HS 07/18/22 07/21/22 History linaclotide 72 mcg capsule 72 mcg PO 0630 07/18/22 07/21/22 History (Linzess) magnesium oxide 500 mg tablet 500 mg PO 4XW 07/18/22 07/21/22 History polyethylene glycol 3350 17 gram 17 g PO DAILY 07/18/22 07/21/22 History oral powder packet (Miralax) Laboratory Tests 07/21/22 07/21/22 06:02 06:02 WBC 9.0 K/mm3 K/mm3 (4.5-10.0) RBC 4.32 M/mm3 L M/mm3 (4.6-6.20) Hgb 12.6 g/dL L g/dL (14.0-18.0) Hct 40.0 % L % (42.0-52.0) MCV 92.6 fl fl (80-100) MCH 29.2 pg pg (26-34) MCHC 31.5 g/dl L g/dl (32-36) RDW 13.5 % % (11.5-14.5) Plt Count 280 k/mm3 k/mm3 (150-375) MPV 8.8 fl fl (7.4-10.4) Sodium 134 mmol/L L mmol/L (137-145) Potassium 3.5 mmol/L mmol/L (3.4-5.0) Chloride 98 mmol/L mmol/L (98-107) Carbon Dioxide 32 mmol/L H mmol/L (22-30) Anion Gap 4 mmol/L L mmol/L (8-16) BUN 3 mg/dL L mg/dL (9-20) Creatinine 0.60 mg/dL L mg/dL (0.7-1.3) Estim Creat Clear Calc 111 ml/min ml/min Estimated GFR > 60 (59 - ) Glucose 108 mg/dL mg/dL (65-110) Calcium 7.8 mg/dL L mg/dL (8.4-10.2) Patient hx anesthesia problems: none Family hx anesthesia problems: none Results Review: All pre-operative results and documents have been reviewed as part of the pre-operative evaluation. 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 Subsequent surgery for resection of the redundancy of the left kidney. Coronary artery disease Dyslipidemia Essential hypertension Nausea and vomiting in adult Obstructive sleep apnea on CPAP Positive colorectal cancer screening using Cologuard test Surgical History Surgical History (Updated 07/19/22 @ 15:25 by Víctor Hester MD) History of AAA (abdominal aortic aneurysm) repair 1 year ago at outside hospital History of arthroplasty of left hip (2013) History of arthroplasty of left knee (02/2010) History of cataract extraction with lens replacement History of cervical spinal surgery (03/2020) History of left inguinal hernia repair (1985) History of lumbar laminectomy (04/2018) L1-L3 in 04/2018. L4-L5 in 01/2019. History of mandibular surgery (1983) TMJ surgery. Family History Family History Mother Cerebrovascular accident, Onset Age: 75 Family history of emphysema Hypertension Father Heart
--- NOTE | 2022-07-21 15:31 | SUR.OPER ---
EGD start 1519 end 1521 Colon start 1527 end 1537 Kathya suction and Ambu bag used during procedure by LUCIEN Elena
--- NOTE | 2022-07-21 16:30 | PC.NURSE ---
Back from GI Lab via stretcher.
[2022-07-21] MEDS: PANTOPRAZOLE SODIUM IV 40 MG VIAL IV PUSH (20:52)
[2022-07-22] MEDS: KCL 20 MEQ/D5/0.9% SOD CHL 1,000 ML 100 ML IV CONT ×3 (00:54→21:56)
[2022-07-22 06:00] VITALS: BP 137/80; PULSE 102; RESP 14; TEMP 37.2; O2SAT 94
[2022-07-22 06:20] LABS: Anion Gap 4 mmol/L (8-16); Calcium 7.8 mg/dL (8.4-10.2); Carbon Dioxide 35 mmol/L (22-30); Chloride 100 mmol/L (98-107); Estimated CRCL calculation 111 ml/min; Estimated Glomerular Filt Rate > 60; Glucose 97 mg/dL (65-110); Potassium 3.6 mmol/L (3.4-5.0); Sodium 139 mmol/L (137-145)
[2022-07-22 06:30] LABS: Hematocrit 40.1 % (42.0-52.0); Hemoglobin 12.6 g/dL (14.0-18.0); Mean Corpuscular HGB Conc 31.4 g/dl (32-36); Mean Corpuscular Hemoglobin 28.6 pg (26-34); Mean Corpuscular Volume 90.9 fl (80-100); Mean Platelet Volume 8.9 fl (7.4-10.4); Platelet Count Result 286 k/mm3 (150-375); Red Blood Count 4.41 M/mm3 (4.6-6.20); Red Cell Distribution Width 13.4 % (11.5-14.5); White Blood Count 6.9 K/mm3 (4.5-10.0)
[2022-07-22 06:34] LABS: Blood Urea Nitrogen < 2 mg/dL (9-20)
[2022-07-22 08:00] VITALS: O2SAT 94
[2022-07-22] MEDS: TOLNAFTATE 1% POWDER 45 GM BTL 1 APPLIC TOPICAL ×2 (08:34→20:16)
[2022-07-22] MEDS: PANTOPRAZOLE SODIUM IV 40 MG VIAL IV PUSH ×2 (08:34→20:15)
--- NOTE | 2022-07-22 11:00 | PM.PNGS ---
Progress Note: A&P Assessment and Plan (1) Enterocolitis: Code(s): K52.9 - Noninfective gastroenteritis and colitis, unspecified Status: Acute Assessment and Plan: improving. I have seen several patients with similar symptoms over the last few days. No small bowel obstruction on imaging today and contrast passes through into the colon in 30 minutes. EGD and colonoscopy results as noted yesterday. Will DC NG and start full liquids. I will go ahead and sign off. Subjective Subjective Date/Time Seen: 07/22/22 11:00 Patient reports: bowel movement and afebrile Interval history: patient was in x-ray department when I came to his room. When I went to the x-ray department to see him, he had been moved back to his room. Review of Systems Review of Systems: All systems reviewed & are unremarkable except as noted in HPI and below ( As per HPI) Objective Data Vital Signs Vital Signs: Vital Signs - 24 hr 07/21/22 13:48 07/21/22 14:10 07/21/22 15:44 Temperature 36.8 C 36.5 C Pulse Rate 94 86 93 Respiratory Rate 22 H 20 25 H Blood Pressure 119/59 L 125/72 124/73 Pulse Oximetry 98 98 95 Oxygen Delivery Nasal Cannula Nasal Cannula Oxygen Flow Rate 2 2 Fraction of Inspired Oxygen 07/21/22 15:54 07/21/22 16:04 07/21/22 16:35 Temperature 36.7 C Pulse Rate 90 93 87 Respiratory Rate 25 H 22 H 16 Blood Pressure 119/67 126/79 108/73 Pulse Oximetry 96 95 95 Oxygen Delivery Nasal Cannula Nasal Cannula Oxygen Flow Rate 2 2 Fraction of Inspired Oxygen 07/21/22 22:00 07/21/22 20:00 07/22/22 06:00 Temperature 36.7 C 37.2 C Pulse Rate 93 102 H Respiratory Rate 14 14 Blood Pressure 125/67 137/80 Pulse Oximetry 97 97 94 Oxygen Delivery Nasal Cannula Oxygen Flow Rate 2 Fraction of Inspired Oxygen 07/22/22 08:00 Temperature Pulse Rate Respiratory Rate Blood Pressure Pulse Oximetry 94 Oxygen Delivery Nasal Cannula Oxygen Flow Rate 2 Fraction of Inspired Oxygen 28 Intake/Output Intake/Output: Intake & Output 07/19/22 07/20/22 07/21/22 07/22/22 23:59 23:59 23:59 23:59 Intake Total 2542 2850 3350 Output Total 1250 2000 1300 1750 Balance 5477 907 6796 -1750 Meds/Results Medications: Active Medications Generic Name Dose Route Start Last Admin Trade Name Freq PRN Reason Stop Dose Admin Enoxaparin Sodium 40 mg 07/21/22 09:00 07/22/22 08:54 Enoxaparin 40 Mg/0.4 Ml Syringe SUB-Q Not Given DAILY VAMSI Fentanyl Citrate 25 mcg 07/20/22 10:07 Fentanyl Citrate Inj (*Crx) 100 Mcg/2 Ml Vial IV PUSH Q4H PRN Pain Rated 6 or Greater Piperacillin/Tazobactam/Dextrose 3.375 gm in 50 mls @ 100 mls/hr 07/18/22 18:00 07/22/22 04:57 Zosyn 3.375 Gm/D5w 50ml Pm IVPB 100 mls/hr Q6H VAMSI Administration Potassium Chloride/Dextrose/Sod Cl 1,000 mls @ 100 mls/hr 07/20/22 10:00 07/22/22 00:54 Kcl 20 Meq/D5/0.9% Sod Chl IV CONT 100 mls/hr .Q10H VAMSI Administration Ondansetron HCl 4 mg 07/18/22 11:46 Ondansetron Inj 4 Mg/2 Ml Vial IV PUSH Q4H PRN Nausea Pantoprazole Sodium 40 mg 07/21/22 21:00 07/22/22 08:34 Pantoprazole Sodium Iv 40 Mg Vial IV PUSH 40 mg Q12HR VAMSI Administration Saliva Substitute 15 ml 07/20/22 11:00 Saliva Substitute Rinse 473 Ml Bottle PO QID PRN Dry Mouth Sodium Chloride 1 spray 07/20/22 11:00 Saline 0.65% Alin Soln 44 Ml Btl NASAL Q6HR PRN Congestion Tamsulosin HCl 0.4 mg 07/19/22 04:25 07/19/22 20:04 Tamsulosin Hcl 0.4 Mg Capsule PO 0.4 mg QHS VAMSI Administration Tolnaftate 1 applic 07/19/22 21:00 07/22/22 08:34 Tolnaftate 1% Powder 45 Gm Btl TOPICAL 08/02/22 20:59 1 applic Q12HR VAMSI Administration Radiology Results: ITS Impressions Abdomen/Pelvis CT 07/18/22 10:21 IMPRESSION: Air fluid levels of the small and large bowel suggesting prominent enterocolitis and/or adynamic ileus, increased since July 10, 2022 Promi
[2022-07-22] MEDS: AMOXICILLIN/CLAVULANATE K 875-125 MG TAB 1 TABLET PO ×2 (12:47→20:15)
[2022-07-22 14:00] VITALS: BP 103/71; PULSE 101; RESP 26; TEMP 36.6; O2SAT 95
--- NOTE | 2022-07-22 14:05 | WPDANESPN ---
Anes - Prog Note Post-Op Date/Time: 07/22/22 14:05 Cardiovascular status: normal Respiratory status: normal Airway patency: baseline Mental status: baseline Post-Op hydration status: normal Vital Signs: Last Vital Signs Temp 37.2 C 07/22/22 06:00 Pulse 102 H 07/22/22 06:00 Resp 14 07/22/22 06:00 BP 137/80 07/22/22 06:00 Pulse Ox 94 07/22/22 08:00 O2 Del Method Nasal Cannula 07/22/22 08:00 O2 Flow Rate 2 07/22/22 08:00 FiO2 28 07/22/22 08:00 Pain Score (VAS): 0/10 I/O: Intake & Output 07/21/22 07/22/22 07/22/22 23:59 07:59 15:59 Intake Total 1100 1000 Output Total 500 1750 Balance 600 -1750 1000 Laboratory Tests 07/22/22 05:29 07/22/22 05:29 07/22/22 07/22/22 05:29 05:29 WBC 6.9 RBC 4.41 L Hgb 12.6 L Hct 40.1 L MCV 90.9 MCH 28.6 MCHC 31.4 L RDW 13.4 Plt Count 286 MPV 8.9 Sodium 139 Potassium 3.6 Chloride 100 Carbon Dioxide 35 H Anion Gap 4 L BUN < 2 L Creatinine 0.60 L Estim Creat Clear Calc 111 Estimated GFR > 60 Glucose 97 Calcium 7.8 L Microbiology 07/18/22 14:06 Stool Escherichia coli Shiga Toxins - Final 07/18/22 14:06 Stool Salmonella/Shigella Culture - Final 07/18/22 14:06 Stool Campylobacter Antigen Assay - Final 07/18/22 14:06 Stool Cryptosporidium Exam - Final 07/18/22 14:06 Stool Giardia Antigen (NAEL) - Final Post-procedural complaints: none Patient Feedback: Patient satisfied with anesthetic care.
--- NOTE | 2022-07-22 14:18 | PC.NURSE ---
Notified provider of trace amounts of blood in farris bag. Provider suspects it is due to tugging at the farris sight. Double checked that the stabilization device was in tact.
--- NOTE | 2022-07-22 14:20 | PM.IMPN ---
Progress Note: A&P Assessment and Plan (1) Enterocolitis: Code(s): K52.9 - Noninfective gastroenteritis and colitis, unspecified Status: Acute Assessment and Plan: Patient reports abdominal pain x3 weeks with loose stool during that time. He also was taking Linzess, MiraLax, and magnesium oxide as he was not having regular bowel movements. He states irregular bowel movements are chronic but worsened in the past 3-[address] scan with air fluid levels of the small and large bowel suggesting prominent enterocolitis and/or adynamic ileus, increased since in size since imaging 07/10/22. Zosyn 3.375 mg IV Q6 hours deescalated to Augmentin to be continued through 07/24/2022 GI and General surgery consulted and appreciate recommendations. Continue pain control - acetaminophen IV and Fentanyl IV PRN. Morphine allergy documented. Colonoscopy positive for diverticula in the sigmoid colon and small internal hemorrhoids not actively bleeding. EGD showed duodenitis, no active bleed. Small-bowel follow-through completed with contrast passed through the colon within 30 minutes. 07/22/2022 NG tube discontinued and diet advanced as tolerated. (2) Ileus: Code(s): K56.7 - Ileus, unspecified Status: Acute Assessment and Plan: Possible Ileus versus obstruction noted on CT scan. Patient presents with abdominal pain x3 weeks, with abdominal distention, N/V prior to admission. NG tube placed in ED for decompression. Continue IV fluids and pain control. General Surgery consulted and appreciate recommendations. ambulate 4-6 times daily. 07/20 KUB with persistent dilated small bowel loops. No flatus. 07/21 KUB unchanged. He reports 3 BMs since starting bowel prep last night. Colonoscopy positive for diverticula in the sigmoid colon and small internal hemorrhoids not actively bleeding. EGD showed duodenitis, no active bleed. Small-bowel follow-through completed with contrast passed through the colon within 30 minutes. 07/22/2022 NG tube removed and diet advanced as tolerated (3) Pulmonary infiltrates: Code(s): R91.8 - Other nonspecific abnormal finding of lung field Status: Acute Assessment and Plan: Possible atelectasis versus lower lobe infiltrates bilaterally. WBC 20 on admission, however, CT also shows enterocolitis. He is requiring 2L NC and noted to have spO2 82% room air this morning, per nursing. Encourage incentive spirometry. Respirations are shallow and suspect more likely atelectasis. Wean O2 to keep sats>90% Monitor respiratory status. Chest x-ray in am- clear lungs and elevated right hemidiaphragm. Reassess when symptoms resolve to ensure not paralyzed diaphragm Patient's Zosyn transition to Augmentin. This should cover pneumonia if patient does truly have pneumonia. He still does not complain of any pneumonia type symptoms such as cough, shortness of breath and fever. (4) Transient hypotension: Code(s): I95.9 - Hypotension, unspecified Status: Acute Assessment and Plan: Occurred in the ED, while having a BM. Presumed vasovagal episode. Monitor vitals Q4 hours. Vitals stable. (5) Obstructive sleep apnea on CPAP: Code(s): G47.33 - Obstructive sleep apnea (adult) (pediatric); Z99.89 - Dependence on other enabling machines and devices Status: Chronic Assessment and Plan: Initiate PAP therapy when NG tube pulled. (6) UPJ (ureteropelvic junction) obstruction: Code(s): N13.5 - Crossing vessel and stricture of ureter without hydronephrosis Status: Acute Assessment and Plan: Noted on imaging. Possible partial obstruction with severe left renal atrophy. Patient has history of congenital renal atrophy and prior procedure for obstruction n the past, but reports this was in and he has not had any further concerns for obstruction since that time. Unclear acute versus chronic. Con
--- NOTE | 2022-07-22 14:28 | WPDGIPROGNO ---
Progress Note: A&P Assessment and Plan (1) Duodenitis: Code(s): K29.80 - Duodenitis without bleeding Status: Acute Assessment and Plan: egd found duodenitis in iv protonix tolerating liquid diet (2) Nausea and vomiting in adult: Code(s): R11.2 - Nausea with vomiting, unspecified Status: Acute Assessment and Plan: SBFT without sbo advancing diet (3) Bowel habit changes: Code(s): R19.4 - Change in bowel habit Status: Acute Assessment and Plan: colonoscopy yesterday without worrisome findings (4) Ileus: Code(s): K56.7 - Ileus, unspecified Status: Acute Assessment and Plan: resolved passing stool (5) Retention of urine: Code(s): R33.9 - Retention of urine, unspecified Status: Acute Assessment and Plan: farris in place Subjective Date/time seen: 07/22/22 14:28 Interval history: doing better, having loose stool, ngt removed and tolerated liquid diet Review of Systems Review of Systems: All systems reviewed & are unremarkable except as noted in HPI and below Exam Const: General: comfortable and no acute distress Nutritional Appearance: obese Orientation/consciousness: patient oriented x3 HENMT: Face/Nose/Sinus: Normal nares present Eyes: Sclera: sclerae normal Neck: Neck: supple Resp: Auscultation: clear to auscultation bilaterally Cardio: Rate: regular rate GI: Inspection: distended GI Palp: Yes Soft to palpation, No Tenderness to palpation present (GI) and No Guarding due to palpation present (GI) Auscultation: normal bowel sounds Urinary Catheter: Urinary Catheter: patent and draining Skin: General skin exam: normal color Neuro: Speech: normal speech Motor exam (neuro): 5/5 motor strength present throughout Extrem: General: normal to inspection Psych: Mental Status: mental status grossly normal Objective Data Vital Signs Vital Signs: Vital Signs - 24 hr 07/21/22 15:44 07/21/22 15:54 07/21/22 16:04 Temperature Pulse Rate 93 90 93 Respiratory Rate 25 H 25 H 22 H Blood Pressure 124/73 119/67 126/79 Pulse Oximetry 95 96 95 Oxygen Delivery Nasal Cannula Nasal Cannula Nasal Cannula Oxygen Flow Rate 2 2 2 Fraction of Inspired Oxygen 07/21/22 16:35 07/21/22 22:00 07/21/22 20:00 Temperature 98.1 F 98.0 F Pulse Rate 87 93 Respiratory Rate 16 14 Blood Pressure 108/73 125/67 Pulse Oximetry 95 97 97 Oxygen Delivery Nasal Cannula Oxygen Flow Rate 2 Fraction of Inspired Oxygen 07/22/22 06:00 07/22/22 08:00 07/22/22 14:00 Temperature 98.9 F 97.8 F Pulse Rate 102 H 101 H Respiratory Rate 14 26 H Blood Pressure 137/80 103/71 Pulse Oximetry 94 94 95 Oxygen Delivery Nasal Cannula Oxygen Flow Rate 2 Fraction of Inspired Oxygen 28 Intake/Output Intake/Output: Intake & Output 07/19/22 07/20/22 07/21/22 07/22/22 23:59 23:59 23:59 23:59 Intake Total 2542 2850 3350 1111 Output Total 1250 2000 1300 1750 Balance 1327 531 5086 -663 Meds/Results Medications: Active Medications Generic Name Dose Route Start Last Admin Trade Name Freq PRN Reason Stop Dose Admin Amoxicillin/Clavulanate Potassium 1 tablet 07/22/22 12:17 07/22/22 12:47 Amoxicillin/Clavulanate K 875-125 Mg Tab PO 07/24/22 21:01 1 tablet Q12HR VAMSI Administration Enoxaparin Sodium 40 mg 07/21/22 09:00 07/22/22 08:54 Enoxaparin 40 Mg/0.4 Ml Syringe SUB-Q Not Given DAILY VAMSI Fentanyl Citrate 25 mcg 07/20/22 10:07 Fentanyl Citrate Inj (*Crx) 100 Mcg/2 Ml Vial IV PUSH Q4H PRN Pain Rated 6 or Greater Potassium Chloride/Dextrose/Sod Cl 1,000 mls @ 100 mls/hr 07/20/22 10:00 07/22/22 12:17 Kcl 20 Meq/D5/0.9% Sod Chl IV CONT 100 mls/hr .Q10H VAMSI Administration Ondansetron HCl 4 mg 07/18/22 11:46 Ondansetron Inj 4 Mg/2 Ml Vial IV PUSH Q4H PRN Nausea Pantoprazole Sodium 40 mg 07/21/22 21:00 07/22/22 08:34 Pantoprazole S
[2022-07-22 20:00] VITALS: O2SAT 95
[2022-07-22 20:50] VITALS: BP 101/62; PULSE 82; RESP 18; TEMP 36.4; O2SAT 95
[2022-07-22] MEDS: TAMSULOSIN HCL 0.4 MG CAPSULE PO (21:01)
[2022-07-23 05:17] VITALS: BP 137/86; PULSE 93; RESP 20; TEMP 36.7; O2SAT 96
[2022-07-23 07:13] LABS: Hematocrit 39.7 % (42.0-52.0); Hemoglobin 12.1 g/dL (14.0-18.0); Mean Corpuscular HGB Conc 30.5 g/dl (32-36); Mean Corpuscular Hemoglobin 28.8 pg (26-34); Mean Corpuscular Volume 94.5 fl (80-100); Mean Platelet Volume 8.9 fl (7.4-10.4); Platelet Count Result 269 k/mm3 (150-375); Red Cell Distribution Width 13.7 % (11.5-14.5)
[2022-07-23 07:21] LABS: Anion Gap 1 mmol/L (8-16); Blood Urea Nitrogen 2 mg/dL (9-20); Calcium 7.9 mg/dL (8.4-10.2); Carbon Dioxide 35 mmol/L (22-30); Chloride 100 mmol/L (98-107); Estimated CRCL calculation 111 ml/min; Estimated Glomerular Filt Rate > 60; Glucose 103 mg/dL (65-110); Potassium 3.3 mmol/L (3.4-5.0); Sodium 136 mmol/L (137-145)
[2022-07-23] MEDS: PANTOPRAZOLE SODIUM IV 40 MG VIAL IV PUSH (09:05)
[2022-07-23] MEDS: AMOXICILLIN/CLAVULANATE K 875-125 MG TAB 1 TABLET PO (09:05)
[2022-07-23] MEDS: POTASSIUM CHLORIDE 20 MEQ PACKET (FOR LIQUID) 40 MEQ PO (09:05)
[2022-07-23] MEDS: ENOXAPARIN 40 MG/0.4 ML SYRINGE SUB-Q (09:05)
[2022-07-23] MEDS: TOLNAFTATE 1% POWDER 45 GM BTL 1 APPLIC TOPICAL (09:05)
[2022-07-23] MEDS: KCL 20 MEQ/D5/0.9% SOD CHL 1,000 ML 100 ML IV CONT (09:19)
--- NOTE | 2022-07-23 12:36 | P.CONIM_ITS ---
Assessment and Plan Assessment and plan (1) Enterocolitis: Code(s): K52.9 - Noninfective gastroenteritis and colitis, unspecified Status: Acute Assessment and Plan: Patient reports abdominal pain x3 weeks with loose stool during that time. He also was taking Linzess, MiraLax, and magnesium oxide as he was not having regular bowel movements. He states irregular bowel movements are chronic but worsened in the past 3-4 months. * CT scan with air fluid levels of the small and large bowel suggesting prominent enterocolitis and/or adynamic ileus, increased since in size since imaging 07/10/22. * Zosyn 3.375 mg IV Q6 hours deescalated to Augmentin to be continued through 07/24/2022 * GI and General surgery consulted and appreciate recommendations. * Continue pain control - acetaminophen IV and Fentanyl IV PRN. Morphine allergy documented. * Colonoscopy positive for diverticula in the sigmoid colon and small internal hemorrhoids not actively bleeding. * EGD showed duodenitis, no active bleed. * Small-bowel follow-through completed with contrast passed through the colon within 30 minutes. * 07/22/2022 NG tube discontinued and diet advanced as tolerated. (2) Ileus: Code(s): K56.7 - Ileus, unspecified Status: Acute Assessment and Plan: Possible Ileus versus obstruction noted on CT scan. Patient presents with abdominal pain x3 weeks, with abdominal distention, N/V prior to admission. * NG tube placed in ED for decompression. * Continue IV fluids and pain control. * General Surgery consulted and appreciate recommendations. * ambulate 4-6 times daily. * 07/20 KUB with persistent dilated small bowel loops. No flatus. * 07/21 KUB unchanged. He reports 3 BMs since starting bowel prep last night. * Colonoscopy positive for diverticula in the sigmoid colon and small internal hemorrhoids not actively bleeding. * EGD showed duodenitis, no active bleed. * Small-bowel follow-through completed with contrast passed through the colon within 30 minutes. * 07/22/2022 NG tube removed and diet advanced as tolerated (3) Pulmonary infiltrates: Code(s): R91.8 - Other nonspecific abnormal finding of lung field Status: Acute Assessment and Plan: Possible atelectasis versus lower lobe infiltrates bilaterally. WBC 20 on admission, however, CT also shows enterocolitis. * He is requiring 2L NC and noted to have spO2 82% room air this morning, per nursing. * Encourage incentive spirometry. * Respirations are shallow and suspect more likely atelectasis. * Wean O2 to keep sats>90% * Monitor respiratory status. * Chest x-ray in am- clear lungs and elevated right hemidiaphragm. Reassess when symptoms resolve to ensure not paralyzed diaphragm * Patient's Zosyn transition to Augmentin. This should cover pneumonia if patient does truly have pneumonia. He still does not complain of any pneumonia type symptoms such as cough, shortness of breath and fever. (4) Transient hypotension: Code(s): I95.9 - Hypotension, unspecified Status: Acute Assessment and Plan: Occurred in the ED, while having a BM. Presumed vasovagal episode. * Monitor vitals Q4 hours. * Vitals stable. (5) Obstructive sleep apnea on CPAP: Code(s): G47.33 - Obstructive sleep apnea (adult) (pediatric); Z99.89 - Dependence on other enabling machines and devices Status: Chronic Assessment and Plan: Initiate PAP therapy when NG tube pulled. (6) UPJ (ureteropelvic junction) obstruction:
--- NOTE | 2022-07-23 12:42 | WPDGIPROGNO ---
Progress Note: A&P Assessment and Plan (1) Duodenitis: Code(s): K29.80 - Duodenitis without bleeding Status: Acute Assessment and Plan: egd found duodenitis patient can go with daily protonix tolerating diet and will advance to soft, then home soon (2) Nausea and vomiting in adult: Code(s): R11.2 - Nausea with vomiting, unspecified Status: Acute Assessment and Plan: SBFT without sbo resolved egd found duodenitis (3) Bowel habit changes: Code(s): R19.4 - Change in bowel habit Status: Acute Assessment and Plan: colonoscopy without worrisome findings (4) Ileus: Code(s): K56.7 - Ileus, unspecified Status: Acute Assessment and Plan: resolved passing stool (5) Retention of urine: Code(s): R33.9 - Retention of urine, unspecified Status: Acute Assessment and Plan: farris in place Subjective Date/time seen: 07/23/22 12:42 Interval history: doing much better, no more pain and having BM Review of Systems Review of Systems: All systems reviewed & are unremarkable except as noted in HPI and below Exam Const: General: comfortable and no acute distress Nutritional Appearance: obese Orientation/consciousness: patient oriented x3 HENMT: Face/Nose/Sinus: Normal nares present Eyes: Sclera: sclerae normal Neck: Neck: supple Resp: Auscultation: clear to auscultation bilaterally Cardio: Rate: regular rate GI: Inspection: distended GI Palp: Yes Soft to palpation, No Tenderness to palpation present (GI) and No Guarding due to palpation present (GI) Auscultation: normal bowel sounds Urinary Catheter: Urinary Catheter: patent and draining Skin: General skin exam: normal color Neuro: Speech: normal speech Motor exam (neuro): 5/5 motor strength present throughout Extrem: General: normal to inspection Psych: Mental Status: mental status grossly normal Objective Data Vital Signs Vital Signs: Vital Signs - 24 hr 07/22/22 14:00 07/22/22 20:50 07/22/22 20:00 Temperature 97.8 F 97.5 F L Pulse Rate 101 H 82 Respiratory Rate 26 H 18 Blood Pressure 103/71 101/62 Pulse Oximetry 95 95 95 Oxygen Delivery Nasal Cannula Oxygen Flow Rate 1 07/23/22 05:17 Temperature 98.1 F Pulse Rate 93 Respiratory Rate 20 Blood Pressure 137/86 Pulse Oximetry 96 Oxygen Delivery Oxygen Flow Rate Intake/Output Intake/Output: Intake & Output 07/20/22 07/21/22 07/22/22 07/23/22 23:59 23:59 23:59 23:59 Intake Total 2850 3350 3483 1356 Output Total 1999 1300 2250 550 Balance 850 2050 1233 806 Meds/Results Medications: Active Medications Generic Name Dose Route Start Last Admin Trade Name Freq PRN Reason Stop Dose Admin Amoxicillin/Clavulanate Potassium 1 tablet 07/22/22 12:17 07/23/22 09:05 Amoxicillin/Clavulanate K 875-125 Mg Tab PO 07/24/22 21:01 1 tablet Q12HR VAMSI Administration Enoxaparin Sodium 40 mg 07/21/22 09:00 07/23/22 09:05 Enoxaparin 40 Mg/0.4 Ml Syringe SUB-Q 40 mg DAILY VAMSI Administration Fentanyl Citrate 25 mcg 07/20/22 10:07 Fentanyl Citrate Inj (*Crx) 100 Mcg/2 Ml Vial IV PUSH Q4H PRN Pain Rated 6 or Greater Potassium Chloride/Dextrose/Sod Cl 1,000 mls @ 100 mls/hr 07/20/22 10:00 07/23/22 09:19 Kcl 20 Meq/D5/0.9% Sod Chl IV CONT 100 mls/hr .Q10H VAMSI Administration Ondansetron HCl 4 mg 07/18/22 11:46 Ondansetron Inj 4 Mg/2 Ml Vial IV PUSH Q4H PRN Nausea Pantoprazole Sodium 40 mg 07/21/22 21:00 07/23/22 09:05 Pantoprazole Sodium Iv 40 Mg Vial IV PUSH 40 mg Q12HR VAMSI Administration Saliva Substitute 15 ml 07/20/22 11:00 Saliva Substitute Rinse 473 Ml Bottle PO QID PRN Dry Mouth Sodium Chloride 1 spray 07/20/22 11:00 Saline 0.65% Alin Soln 44 Ml Btl NASAL Q6HR PRN Congestion Tamsulosin HCl 0.4 mg 07/19/22 04:25 07/22/22 21:01 Tamsulosin Hcl 0.4 Mg Capsule PO 0.4 mg
--- NOTE | 2022-07-23 13:54 | PM.DS ---
DS: Admitting Diagnosis Discharge Date 07/23/22 Admitting Diagnosis abdominal pain DS: Summary Hospital Course Reason for hospitalization: Enterocolitis Hospital Course: This a 76-year-old male with history of hypertension, hyperlipidemia, CKD, JAVAN and AAA open repair presented to the ED on 07/18/2022 with complaints abdominal pain. Patient had associated nausea, vomiting, and diarrhea. Patient recently prescribed Linzess, MiraLAX and magnesium oxide for constipation by his primary care provider and since then he has been having loose frequent stools. Patient recently did have Cologuard which came back positive. GI consulted. Abdominal x-ray revealed dilated small bowel consistent with ileus versus obstruction. CT abdomen pelvis revealed dilated small bowel without focal transition point consistent with ileus. Repeat CT showed air-fluid levels of small and large bowel suggesting prominent intra colitis and/or adynamic ileus. Patient had NG tube placed. General surgery consulted. Patient was started on IV Zosyn and fluids. GI and General surgery. Patient did not see any obvious signs of obstruction. Patient was evaluated endoscopically and had colonoscopy performed due to bowel habit changes and positive Cologuard. EGD revealed duodenitis and patient advised to take Protonix daily. Colonoscopy Showed diverticulosis without perforation or abscess and nonbleeding internal hemorrhoids. Patient's blood cultures came back negative and patient's Zosyn was decelerated to Augmentin. Patient was found to have urinary retention and Urology consulted. Patient has BPH and was started on tamsulosin and finasteride. Patient had Farris catheter placed and is going to follow up with Urology in the office in 1-2 weeks for a voiding trial. Patient's abdominal pain improved over the course of hospitalization. NG tube was removed and diet advanced as tolerated. Patient did well with diet having regular bowel movements. Time Spent with Patient Time attestation: Total time spent providing and/or coordinating discharge services: Exam Narrative: GENERAL: Comfortable, no acute distress HENMT: moist mucous membranes EYES: EOM intact b/l NECK: no lymphadenopathy RESPIRATORY: clear to auscultation CARDIO: RRR GI: soft, nontender, bowel sounds present SKIN: no rashes EXTREMITIES: no edema, redness or tenderness DS: Data Data Completed and Pending Labs on day of discharge: Labs from last 24 hours 07/23/22 07/23/22 06:26 06:26 WBC 6.0 RBC 4.20 L Hgb 12.1 L Hct 39.7 L MCV 94.5 MCH 28.8 MCHC 30.5 L RDW 13.7 Plt Count 269 MPV 8.9 Sodium 136 L Potassium 3.3 L Chloride 100 Carbon Dioxide 35 H Anion Gap 1 L BUN 2 L Creatinine 0.60 L Estim Creat Clear Calc 111 Estimated GFR > 60 Glucose 103 Calcium 7.9 L Discharge Plan Discharge Attending physician on discharge: Kevin Lee Consulting providers: Frankie Villanueva ; Jorge Roth Discharging Clinician: Angelita Henson Patient Disposition: Home, Self-Care Activity: as tolerated Diet: bland Discharge Instructions: Medications: Tamsulosin 0.4mg daily Finasteride 5 mg daily Protonix 40 mg daily Urology: Call the office to schedule your follow up visit to remove your farris catheter in 1-2 weeks. Start Tamsulosin and Finasteride to treat your enlarged prostate. You will take these two medications indefinitely to reduce the size of your prostate and allow independent urination. Discharge disposition: Take medications as prescribed Monitor blood pressures Avoid social areas, you wear a mask when in social settings Encouraged to continue with yearly vaccinations Return to the emergency department if he developed sudden shortness of breath, chest pain, nausea, vomiting, upset stomach or intractable diarrhea Return to the emergency department if you develop fever greater than
[2022-07-23 14:00] VITALS: BP 121/74; PULSE 95; RESP 20; TEMP 36.6; O2SAT 96
== END 2022-07-23 16:00 | disposition home or self-care (01) | DRG 392 ==
LOC: ANHED 09:00 → ANH3MEDSUR 15:45
PROVIDERS: Internal Medicine Gastroenterology; Nurse Practitioner Family; Physician Assistant; Surgery; Admitting Provider Chiropractor; Emergency Provider Emergency Medicine; PCP Internal Medicine; Visit Provider Internal Medicine Critical Care Medicine
PROC: 0DJ08ZZ Inspection of Upper Intestinal Tract, Via Natural or Artificial Opening Endoscopic (ICD-10-PCS; CPT 43235; principal; 2022-07-21 15:00)
DX: K52.9 Noninfective gastroenteritis and colitis, unspecified (principal); K56.0 Paralytic ileus; J98.11 Atelectasis; K29.80 Duodenitis without bleeding; K57.30 Diverticulosis of large intestine without perforation or abscess without bleeding; K64.8 Other hemorrhoids; R91.8 Other nonspecific abnormal finding of lung field; I95.9 Hypotension, unspecified; I12.9 Hypertensive chronic kidney disease with stage 1 through stage 4 chronic kidney disease, or unspecified chronic kidney disease; N18.9 Chronic kidney disease, unspecified; G47.33 Obstructive sleep apnea (adult) (pediatric); I71.40 Abdominal aortic aneurysm, without rupture, unspecified; N13.5 Crossing vessel and stricture of ureter without hydronephrosis; E78.5 Hyperlipidemia, unspecified; N40.1 Benign prostatic hyperplasia with lower urinary tract symptoms; R33.8 Other retention of urine; Z20.822 Contact with and (suspected) exposure to COVID-19; I25.10 Atherosclerotic heart disease of native coronary artery without angina pectoris; R19.4 Change in bowel habit; E66.9 Obesity, unspecified; R19.5 Other fecal abnormalities; Z96.642 Presence of left artificial hip joint; Z96.652 Presence of left artificial knee joint; Z98.42 Cataract extraction status, left eye; Z98.41 Cataract extraction status, right eye; Z96.1 Presence of intraocular lens; Z98.1 Arthrodesis status; Z87.891 Personal history of nicotine dependence; I69.391 Dysphagia following cerebral infarction; R13.10 Dysphagia, unspecified; Z68.35 Body mass index [BMI] 35.0-35.9, adult
CPT/HCPCS: 36415; 51701; 71045; 74018; 74177; 74250; 80048; 80053; 81001; 83690; 83735; 85025; 85027; 87045; 87269; 87272; 87427; 87493; 87636; 96374; 99285; A9270; C9113; J1650; J2405; J2543; J2704; J3480; J7030; J7120; Q9967

== ENCOUNTER 2023-02-22 07:57 | Outpatient (RCR) | payer MEDICARE, OTHER, SELFPAY ==
--- NOTE | 2023-02-22 09:01 | PTOPEVAL1 ---
Assessment and note entered by Fernando Pisano Evaluation Information Assessment Status Evaluation Diagnosis left shoulder pain, right shoulder weakness Onset 02/18/23 Subjective Information Pt. reports that he developed weakness in his right arm about 3 years ago after developing a pinched nerve in his neck. He states that he has pain in the left shoulder and needs the shoulder replaced, but cannot due to his right arm weakness . he reports that he is able to dress himself, but can no longer drive. He states that he has been unable to use the right arm since having pinched nerve in his neck. He states that he would like to particpate in therapy to improve his right and left arm strength. Pt. is right hand dominant. Reported Pain Level Pain Score 2: Self Report Assessment PT Clinical Summary Pt. is a 77 year old male who enters the clinic with bilateral shoulder pain and weakness. He presents with impaired ROM, shoulder pain, impaired strength and functional decline. Continued skilled PT is indicated in order to improve these areas to assist with improving u.e. mobility for improved ADL and IADL performance. Plan of Care Interventions Electrical Stimulation,Hot Pack/Cold Pack,Manual Therapy,Neuro Re-education,Patient/Caregiver Educati,Therapeutic Activities,Therapeutic Exercise PT Services Indicated Yes Treatment Frequency and 2x/week x 10 visits Duration These treatments will address the objective and functional deficits as defined above. The patient will be advanced safely and appropriately in order for the patient to progress towards his/her prior level of function. Additional exercises will be introduced and as well as a comprehensive home exercise program upon discharge, if needed, ?to ensure carryover of functional gains achieved in the clinic. This treatment plan has been reviewed and agreement upon by the patient.
--- NOTE | 2023-02-22 09:02 | OPREHPOC ---
Outpatient Therapy Plan of Care This is a Multidisciplinary Plan of Care that may contain components documented by all disciplines (PT, OT, and ST.) PT Problem 1 PT Problem #1 Knowledge Deficit PT Goal 1 Goal Pt. will be independent with a HEP addressing strength and mobility tenriism. Target Visit 2 PT Problem 2 PT Problem #2 Impaired Range of Motion PT Goal 1 Goal -Pt. will achieve 120 degrees active shoulder flexion against gravity on the left -Pt. will achieve 120 degrees active elbow flexion against gravity for ease of feeding Target Visit 10 PT Problem 3 PT Problem #3 Impaired Strength PT Goal 1 Goal -Pt. will presents with 3+/5 left elbow flexion -Pt. will present with 4-/5 right shoulder flexion strength -Pt. will be able to lift 3# overhead in semirecumbent position with the left u.e. to transition to activty against gravity. Target Visit 10
== END 2023-03-03 23:59 | disposition home or self-care (01) ==
LOC: CHSPT 07:57
PROVIDERS: PCP Internal Medicine; Visit Provider Internal Medicine
DX: M25.512 Pain in left shoulder (principal)
CPT/HCPCS: 97014; 97110; 97140; 97161; G0283

== ENCOUNTER 2024-12-08 14:54 | Outpatient (CLI) | payer MEDICARE, OTHER, SELFPAY ==
--- NOTE | ~2024-12-08 | CT_ITS ---
EXAMINATION: CT abdomen pelvis wo con DATE: 12/08/2024 16:13 INDICATION: RLQ abdominal pain, nausea x1 day TECHNIQUE: Computed tomography (CT) of the abdomen and pelvis was performed without intravenous contr ast. Automated exposure control and iterative reconstruction technique were employed. The dose-length product was 1489.52 mGy-cm. COMPARISON: 07/18/2022. FINDINGS: Exam limited by beam hardening from arm down positioning. Lower thorax: Chronic discoid atelectasis in the right lower lobe. Bibasilar scarring. Atheroscleroti c aortic calcifications. Moderate coronary artery calcifications. Liver: Normal. Biliary/Gallbladder: Gallbladder is normal. No bile duct dilation. Pancreas: No mass or duct dilation. Spleen: Normal. Adrenals:No mass. Kidneys: Left renal atrophy and scarring, with chronic pelvicaliectasis. Moderate right perinephric s tranding. Mild right hydronephrosis. GI tract: No small or large bowel dilation. Normal appendix. Diverticulosis without diverticulitis. Mesentery/Peritoneum: No ascites, mass, or free air. Mild mesenteric stranding, with fat halos surrou nding prominent mesenteric lymph nodes. Retroperitoneum: No mass. Atherosclerotic calcifications of intra-abdominal arterial vessels. 3.6 cm infrarenal abdominal aortic aneurysm. Pelvis: Wall thickening noted in a mostly empty urinary bladder. 3 mm calcification in the right UVJ. Prostatic calcification. Soft Tissues: Small uncomplicated fat-containing left inguinal and umbilical hernias. Old upper midli ne abdominal incision. Bones: No acute osseous finding. Lumbar scoliosis and multilevel severe degenerative disc disease. P artially visualized, uncomplicated appearing left hip arthroplasty. IMPRESSION: 3 mm calcification in the right UVJ causing moderate obstructive uropathy. Left renal atrophy and scarring with chronic pelvicaliectasis. Mild mesenteric panniculitis. 3.6 cm abdominal aortic aneurysm. Recommend follow-up in 2 years. Urinary bladder wall thickening may be secondary to cystitis or incomplete distention. Reviewed, dictated and finalized at location K. IMPRESSION: 3 mm calcification in the right UVJ causing moderate obstructive uropathy. Left renal atrophy and scarring with chronic pelvicaliectasis. Mild mesenteric panniculitis. 3.6 cm abdominal aortic aneurysm. Recommend follow-up in 2 years. Urinary bladder wall thickening may be secondary to cystitis or incomplete dist ention.
--- OUTSIDE RECORDS SUMMARY | 2024-12-08 15:00 | XMS_ITS | Clinical Summary ---
Author Organization [facility] Address [address] [place] [address] Phone Care Team Providers Care Trial Court Judge Name Role Phone Bal Tomas MD Primary Care Provider + Allergies Active Allergy Reactions Criticality Noted Date Comments Morphine Nausea and Vomiting Medium 01/25/2019 Medications acetaminophen (TYLENOL ARTHRITIS) 650 mg Extended Release tablet Take 1,900 mg by mouth 2 times daily. Active multivitamin (DAILY-XIOMARA) tablet Take 1 Tablet by mouth daily. Active ascorbic acid, vitamin C, (VITAMIN C) 1,000 mg Tablet Take 1,000 mg by mouth daily. Active coenzyme Q10 200 mg Capsule Take 200 mg by mouth daily. Active OTHER OsteoBiFlex Triple strength Active docusate sodium (COLACE) 100 mg capsule Take 100 mg by mouth 2 times daily. Active aspirin (ECOTRIN EC) 325 mg Tablet, Delayed Release (E.C.) Take 1 Tablet (325 mg) by mouth 2 times daily. 1 Active HYDROcodone-acet aminophen (NORCO) 10-325 mg TabletIndication s:Status post total knee replacement, unspecified laterality Take 1 Tablet by mouth every 4 hours as needed for Pain. Max Daily Amount: 6 Tablets 30 Tablet 1 Active naloxone (NARCAN) 4 mg/spray [place], Non-Aerosol EMERGENCY USE ONLY: Administer 1 spray (4 mg) in one nostril one time. May repeat in alternating nostrils every 2-3 min until responsive or EMS arrives. 2 Each 3 1 Active Active Problems Problem Noted Date Diagnosed Date Protein-calorie malnutrition, severe 04/24/2020 S/P lumbar laminectomy 02/06/2019 Cervical radiculopathy due t o degenerative joint disease of spine Right arm weakness Oropharyngeal dysphagia Acute respiratory failure with hypoxia and hyper capnia JAVAN on CPAP Immunizations Immunization Administration Dates Next Due (ADACEL/BOOSTRIX)(10 YR UP) TDAP VACCINE, 0.5ML, IM 09/01/2018,06/20/2016 (SHINGRIX)(50 YRS UP) ZOSTER VACCINE RECOMBINANT, 0.5 ML, IM 11/30/2014 Influenza Vaccine Split 6-35 Mo IM 04/02/2020(Frye: Patient Refused) Pneumococcal 7-valent conjug ate vaccine IM 03/26/2015 Family History Medical History Relation Name Comments Colon Cancer Neg Hx Esophageal Cancer Neg Hx Gastric Cancer Neg Hx Liver Cancer Neg Hx Pancreatic Cancer Neg Hx Social History Tobacco Use Types Packs/Day Years Used Date Smoking Tobacco: Former Cigarettes 1 30 0 01/25/1979 - 01/25/2009 Smokeless Tobacco: Never Comments:quit 10 years ago Alcohol Use Standard Drinks/Week Comments Not Currently 0 (1 standard drink = 0.6 oz pur e alcohol) SELDOM Sex and Gender Information Value Date Recorded Sex Assigned at Not on file Legal Sex Male 9:47 AM CDT Gender Identity Not on file Sexual Orientation Not on file Last Filed Vital Signs Vital Sign Reading Time Taken Comments Blood Pressure 123/56 06/18/2020 12:27 PM SPRAYER OPERATOR Pulse 98 06/18/2020 12:27 PM SPRAYER OPERATOR Temperature 37.2 C (99 F) 06/18/2020 12:27 PM SPRAYER OPERATOR Respiratory Rate 16 06/18/2020 12:27 PM SPRAYER OPERATOR Oxygen Saturation 96% 06/18/2020 12:27 PM SPRAYER OPERATOR Inhaled Oxygen Concentration - - Weight 95.1 kg (209 lb 9.6 oz) 06/17/2020 8:41 A M SPRAYER OPERATOR Height 180.3 cm (5' 11) 06/17/2020 8:41 AM SPRAYER OPERATOR Body Mass Index 29.23 06/17/2020 8:41 AM SPRAYER OPERATOR Plan of Treatment Health Maintenance Due Date Last Done Comments DIABETES ANNUAL FOOT EXAM 12/10/1963 DIABETES ANNUAL RETINAL EXAM 12/10/1963 DIABETES MICROALBUMIN ANNUAL SCREEN 12/10/1963 LDL CHOLESTEROL ANNUAL 12/10/1963 PNEUMOCOCCAL VACCINE 50+ YEA RS (1 of 2 - PCV) 1964 03/26/2015 ZOSTER VACCINE (2 of 2) 01/25/2015 11/30/2014 DIABETES HBA1C Q 6 MONTHS 04/07/2020 10/06/2019 RSV VACCINE (60+ or ) (1 - 1-dose 75+ series) 2020 INFLUENZA VACCINE (#1) 2024 DTAP/TDAP/TD VACCINES (3 - Td or Tdap) 09/01/2028, 06/20/2016 Medical Devices Implanted Type Area Slot Technician Device Identifier Shelf Expiration Date Model / Serial / Lot Biomet Bone Cement R Implanted:Qty: 2 on 06/17/2020 by Jai Wong MD at [facility] Cement Right: Knee [employer] [id number] 12/21/2024 [id number] / / [id number] Peg Endovive Sfty 24fr 6648 - [id number] Implanted:Qty: 1 on 04/16/2020 by Armando So MD at [facility] Feeding Device N/A: Abdomen My Single Point FRANNIE [id number] 05/23/2021 [id number] / / [id number] Hemostatic Surgiflo 8ml W/Thrombin 2994 - [id number] Implanted:Qty: 2 on 04/02/2020 by Donn Ledezma MD at [facility] Hemostatic N/A: Spine Cervical Anterior J[employer] [id number] 03/23/2021 2994 / / [id number] Comp Fem Persona Cr Sz11 Rt [id number] - [id number] Implanted:Qty: 1 on 06/17/2020 by Jai Wong MD at [facility] Knee Right: Knee [employer] 01/11/2030 [id number] / / [id number] Plate Tawanna Vision Elite 80mm Implanted:Qty: 1 on 04/02/2020 by Donn Ledezma MD at [facility] Plate N/A: Spine Cervical Anterior [employer] [id number] / STERILIZED 03/26/2020 / [id number] #[id number] Description:ENTERED BY REDD 11 [id number] 1X ADD KALEB [address] 4.0x14mm [id number] - [id number] Implanted:Qty: 10 on 04/02/2020 by Donn Ledezma MD at [facility] Screw N/A: Spine Cervical Anterior [employer]- SOFAMOR JOSELINEK [id number] / / Description:LOAD # [id number] DATE 03/26/2020 Mis Quad Sparing Total Knee Procedure Headed Screw 48mm Length Implanted:Qty: 1 on 06/17/2020 by Jai Wong MD at [facility] Screw Right: Knee [employer] [id number] 04/14/2030 [id number] / / [id number] Bone Block L-Ascr [id number] 874528 - [id number] Implanted:Qty: 1 on 04/02/2020 by Donn Ledezma MD at [facility] N/A: Spine Cervical Anterior [employer] 10/22/2022 [id number] / [id number] / [id number] Bone Block L-Ascr [id number] 965890 - [id number] Implanted:Qty: 1 on 04/02/2020 by Donn Ledezma MD at [facility] N/A: Spine Cervical Anterior [employer] 10/25/2020 [id number] / [id number] / [id number] Description:KALEB 88108 Graft Bone Cornerstone [id number] Lsr 826300 - [id number] Implanted:Qty: 1 on 04/02/2020 by Donn Ledezma MD at [facility] N/A: Spine Cervical Anterior [employer] 03/08/2022 [id number] / [id number] / [id number] Graft Bone Cornerstone [id number] Lsr 082956 - [id number] Implanted:Qty: 1 on 04/02/2020 by Donn Ledezma MD at [facility] N/A: Spine Cervical Anterior [employer] 01/16/2023 [id number] / [id number] / [id number] [place] 1 Cc Dbm Putty Implanted:Qty: 1 on 04/02/2020 by Donn Ledezma MD at [facility] N/A: Spine Cervical Anterior [employer] 01/22/2023 [id number] / [id number] / Description:ENTERED BY [facility] - PER TISSUE TRACKING FORM. REQ#[id number] Persona The Personalized Knee System 2.5mm Female Hex Screw 25mm Length Implanted:Qty: 1 on 06/17/2020 by Jai Wong MD at [facility] Right: Knee [employer] 04/29/2030 [id number] / / [id number] Persona The Personalized Knee System Natural Tibia Cemented 5 Degree Implanted:Qty: 1 on 06/17/2020 by Jai Wong MD at [facility] Right: Knee [employer] [id number] 11/28/2029 [id number] / / [id number] Persona The Personalized Knee System Vivacit-E Highly Crosslinked Polyethyene Right 10mm Height Implanted:Qty: 1 on 06/17/2020 by Jai Wong MD at [facility] Right: Knee [employer] [id number] 10/21/2024 [id number] 10 / / [id number] Explanted Type Area Slot Technician Device Identifier Shelf Expiration Date Model / Serial / Lot Hemostatic Surgiflo 8ml W/Thrombin 2994 - [id number] Explanted:Qty: 1 on 01/31/2019 by Donn Ledezma MD at [facility] N/A: Spine Lumbar J[employer]J- [employer] 03/23/2020 2994 / / [id number] Insurance MEDICARE PART A AND B [facility] JULIA COREA [id number] RX [facility] Medicare Part D Advance Directives For more information, please contact: [phone] Documents on File Type Date Recorded Patient Workers Compensation Coordinator Expl anation Advance Directive POA 01/27/2019 10:33 AM A dvance Directive POA Advance Directive Living Will 01/27/2019 8:34 AM * Full Code (Latest Code Status on File) Date Activated Date Inactivated Comments 06/17/2020 1:29 PM 06/18/2020 5:23 PM * Full Code Date Activated Date Inactivated Comments 06/17/2020 8:40 AM 06/17/2020 1:29 PM * Full Code Date Activated Date Inactivated Comments 04/18/2020 11:57 AM 05/08/2020 3:23 PM * Full Code Date Activated Date Inactivated Comments 04/02/2020 1:24 PM 04/18/2020 11:32 AM * Full Code Date Activated Date Inactivated Comments 02/04/2019 4:47 PM 02/10/2019 5:[address] Judge Relationship Specialty Start Date End Date Bal Tomas MD [address] [place] [address] PCP - General Internal Medicine 01/25/19
--- OUTSIDE RECORDS SUMMARY | 2024-12-08 15:00 | XMS_ITS | Clinical Summary ---
Author Organization [facility] [employer] Address [address] [place] [address] Care Team Providers Care Food Service Driver Name Role Phone Ivan FINK MD, Liam Unavailable [phone] Wilmer Sánchez MD Unavailable [phone] Nolan Freeman MD Unavailable [phone] Bal Tomas MD Primary Care Provider [phone] Source Comments [facility],non-owned Affiliates and Associated Physician Practices is amultiple site organization consisting of ambulatory clinics and hospital sitesin [place], [place], [place] and [place]. This disclosure is being madepursuant to the Care Everywhere program and may not contain all information available regarding this patient. Last updated 18.[facility] Allergies Active Allergy Reactions Criticality Noted Date Comments Morphine Nausea and/or Vomiting Low 04/14/2013 VOMITING Oxycodone Other Low 04/11/2019 Disoriented Medications * Be aware that medications may not be up to date on this document. Alwaysverify current medications with the patient. Multiple Vitamins-Minera ls (MULTIVITAMIN & MINERAL PO) Take 1 Dose by mouth once daily Active Ascorbic Acid (VITAMIN C CR) 1000 MG TBCR Take 1,000 mg by mouth once daily Active Misc Natural Products (OSTEO BI-FLEX TRIPLE STRENGTH PO) Take 2 tablets by mouth at bedtime Active Coenzyme Q10 (CO Q 10 PO) Take 1 Dose by mouth once daily Active metoprolol succinate XL 24hr (TOPROL XL) 25 MG tablet Take 1 (one) tablet by mouth once daily 30 tablet 5 1 Active Additional Information Patient not taking.Reported on 04/08/2021 acetaminophen CR (TYLENOL ARTHRITIS PAIN) 650 MG tablet Take 650 mg by mouth every 8 hours as needed for Pain Active HYDROcodone-madison taminophen (NORCO) 5-325 MG tablet Take 1 (one) tablet by mouth every 8 hours as needed for Pain 24 tablet 1 Active Active Problems Problem Noted Date Diagnosed Date Primary osteoarthritis of right knee 08/15/2018 Tear of right rotator cuff 12/01/2017 Abdominal aortic aneurysm (AAA) without rupture 08/20/2016 Status post THR (total hip replacement) 08/25/19 14 Left hip pain 04/14/2013 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 Immunizations Immunization Administration Dates Next Due Covid Harrisa primary monovalent 12+ yr 0.5mL ,06/08/2020 PNEUMOCOCCAL PCV7 CONJ, PEDS 03/26/2015 TDAP (7yrs+) 09/01/2018 TETANUS 06/20/2016 ZOSTER HISTORIC VACCINE 11/30/2014 Family History Medical History Relation Name Comments Heart Disease Brother 2 Aneurysm Father brain Emphysema Mother Heart Failure Mother Stroke Mother Aneurysm Paternal Grandfather brain Relation Name Status Comments Brother 1 Alive Brother 2 Father Mother Paternal Grandfather Social History Tobacco Use Types Packs/Day Years Used Date Smoking Tobacco: Former Cigarettes Q uit: 05/24/2004 Smokeless Tobacco: Never Tobacco Cessation:Counseling Given: No Alcohol Use Standard Drinks/Week Comments Yes 0 (1 standard drink = 0.6 oz pur e alcohol) very seldom as of 3.30.17 Sex and Gender Information Value Date Recorded Sex Assigned at Not on file Legal Sex Male 10:18 AM CLERK Gender Identity Not on file Sexual Orientation Not on file 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 Not on file Not on tere e Last Filed Vital Signs Vital Sign Reading Time Taken Comments Blood Pressure 139/73 03/25/2021 4:19 AM CDT Pulse 90 03/25/2021 4:19 AM CDT Temperature 36.7 C (98.1 F) 03/25/2021 4:19 AM CDT Respiratory Rate 18 03/25/2021 4:19 AM CDT Oxygen Saturation 93% 03/25/2021 4:19 AM CDT Inhaled Oxygen Concentration - - Weight 103 kg (227 lb) 04/08/2021 1:27 PM CLERK Height 172.7 cm (5' 8) 04/08/2021 1:27 PM CLERK Body Mass Index 34.52 04/08/2021 1:27 PM CLERK Plan of Treatment Health Maintenance Due Date Last Done Comments HEPATITIS C SCREENING 12/05/1963 DIABETES-STATIN 1985 PNEUMOCOCCAL VACCINE 50+ (1 of 1 - PCV) 12/10/1995 ZOSTER VACCINE (1 of 2) 12/10/1995 11/30/2014 DIABETES-FOOT EXAM WITH MONOFILAMENT 01/05/2020 DIABETES-HGB A1C 04/07/2020 10/06/2019, 08/23/2018 Respiratory Syncytial Virus (RSV) Vaccine Pt: or over 60 yrs (1 - 1-dose 75+ series) 2020 DIABETES-SERUM CREATININE 03/25/20222020, 03/24/2021, 03/23/2021, Additional history exists COVID-19 VACCINE (3 - 2023- season) 2024 07/21/2020, 06/08/2020 DEPRESSION SCREENING 05/24/2024 DIABETES - URINE PROTEIN SCREENING 05/24/2024 10/27/2018 INFLUENZA VACCINE (#1) 2025 02/14/2021, 2019 DTAP/TDAP/TD VACCINES (3 - Td or Tdap) 09/01/2028 09/01/2018, 06/20/2016 HEPATITIS B VACCINE Aged Out No longe r eligible based on patient's age to complete this topic HIB VACCINE Aged Out No longer eligi ble based on patient's age to complete this topic HPV VACCINE Aged Out No longer eligi ble based on patient's age to complete this topic MENINGOCOCCAL (Group B) VACCINE SHARED DECISION-MAKING Aged Out No longer eligible based on patient's age to complete this topic MENINGOCOCCAL GROUPS A/C/Y/W VACCINE Aged Out No longer eligible based on patient's age to complete this topic Medical Devices Implanted Type Area Superintendent Colliery Device Identifier Shelf Expiration Date Model / Serial / Lot Sriram 10ml Implanted:Qty : 1 on 08/01/2013 at [facility] Collagen Left: Hip [employer] 10/20/2014 [id number] / / [id number] Shell With Cluster Holes Implanted:Qty : 1 on 08/01/2013 by Liam Love IV, MD at [facility] Left: Hip 06/22/2023 / / [id number] Trilogy Liner Implanted:Qty : 1 on 08/01/2013 by Liam Love IV, MD at [facility] Left: Hip 05/22/2014 / / [id number] Offset Stem Implanted:Qty : 1 on 08/01/2013 by Liam Love IV, MD at [facility] Left: Hip 02/20/2018 [id number] 70 / / [id number] Femoral Head Implanted:Qty : 1 on 08/01/2013 by Liam Love IV, MD at [facility] Left: Hip 11/20/2022 [id number] 6- / / [id number] Graft Cv 14mm 30cm Hmshld Gld Mcvl 2 Vlr - [id number] Implanted:Qty : 1 on 03/21/2021 by Jason Loza MD at [facility] N/A: Aorta Maquet 10/21/2025 [id number] / [id number] / [id number] Procedures Procedure Name Priority Date/Time Associated Diagnosis Comments RENAL FUNCTION PANEL AM Draw 03/25/2021 5:08 AM CDT HEMOGLOBIN A1C 10/06/2019 10:51 AM CDT from Last 3 Months or Most Recently Relevant to Health Maintenance Results * (ABNORMAL) RENAL FUNCTION PANEL (03/25/2021 5:08 AM CDT) [facility] Glucose 101 70 - 105 mg/dL 03/25/2021 5:33 AM CDT [facility] Sodium 138 136 - 145 mmol/L 03/25/2021 5:33 AM CDT [facility] Potassium 3.6 3.5 - 5.1 mmol/L 03/25/2021 5:33 AM CDT [facility] Chloride 103 98 - 107 mmol/L 03/25/2021 5:33 AM CDT [facility] CO2 26 23 - 31 mmol/L 03/25/2021 5:33 AM CDT [facility] Calcium 9.1 8.4 - 10.4 mg/dL 03/25/2021 5:33 AM CDT [facility] Anion Gap 9 8 - 18 mmol/L 03/25/2021 5:33 AM CDT [facility] BUN 10 8.4 - 25.7 mg/dL 03/25/2021 5:33 AM CDT [facility] Creatinine 0.67(L) 0.72 - 1.25 mg/dL 03/25/2021 5:33 AM CDT [facility] Albumin 2.8(L) 3.2 - 4.6 gm/dL 03/25/2021 5:33 AM CDT [facility] Phosphorus 2.5 2.3 - 4.7 mg/dL 03/25/2021 5:33 AM CDT [facility] eGFR by MDRD >60 mL/min/1.7 3m2 03/25/2021 5:33 AM CDT [facility] eGFR by MDRD >60 mL/min/1.7 3m2 03/25/2021 5:33 AM CDT [facility] Blood BLOOD SPECIMEN / Unknown Venipuncture / Unknown 03/25/2021 5:08 AM CDT 03/25/2021 5:13 AM CDT us Alvin Kuhn MD LAB - CHEMISTRY ORDERABLES Final Result [facility] [address] [place] [address] * HEMOGLOBIN A1C (10/06/2019 10:51 AM CDT) Hemoglobin A1c 5.6 <5.7 % of total Hgb [facility] Comment: For the purpose of screening for the presence of diabetes: <5.7% Consistent with the absence of diabetes 5.7-6.4% Consistent with increased risk for diabetes (prediabetes) > or =6.5% Consistent with diabetes This assay result is consistent with a decreased risk of diabetes. Currently, no consensus exists regarding use of hemoglobin A1c for diagnosis of diabetes in children. According to [place] Diabetes Association (ADA) guidelines, hemoglobin A1c <7.0% represents optimal control in non- diabetic patients. Different metrics may apply to specific patient populations. Standards of Medical Care in Diabetes(ADA). Test Performed at: [id number] [address] [place] [address] MAX PARADA DO,MPH 10/06/2019 10:5 1 AM CDT 10/06/2019 11:20 AM CDT Liana Shaikh MD LAB - CHEMISTRY ORDERABLES Fi nal Result [facility] [address] [place] [address] from Last 3 Months or Most Recently Relevant to Health Maintenance Insurance [facility]ICARE [facility]ICARE [facility] [place] [address] Advance Directives Documents on File Type Date Recorded Patient Bandoleer Packer Expl anation Adv Directive/Living Will/POA 08/05/2013 11:14 PM Adv Directive/Living Will/POA 07/18/2013 10:50 AM LIVING MATT * Full Code (Latest Code Status on File) Date Activated Date Inactivated Comments 03/21/2021 1:44 PM 03/25/2021 1:49 PM * Full Code Date Activated Date Inactivated Comments 08/01/2013 11:18 AM 08/04/2013 12:23 PM Care Teams Food Service Driver Relationship Specialty [place] [address] [place] [phone] PCP - General 09/25/19 [place] [address] [address] [place] [address] Orthopedic Surgery 04/14/13 Wilmer Sánchez [place] [address] [place], [place] [phone] Anesthesiology-Pain Management 04/26/13 [place] [address] [place] [phone] Orthopedic Surgery 01/13/17
--- OUTSIDE RECORDS SUMMARY | 2024-12-08 15:00 | XMS_ITS | Encounter Summary ---
Author Organization [facility] Address [address] [place] [address] Care Team Providers Care Buttonholer Name Role Phone Ivan FINK MD, Frank Unavailable [phone] Wilmer Sánchez MD Unavailable [phone] Nolan Freeman MD Unavailable [phone] Bal Tomas MD Primary Care Provider [phone] Encounter Details Date Type Department Care Team (Late st Contact Info) Description 08/22/2015 [facility] Outpatient Visit [facility] [address] [place] [address] [place] [address] [facility] [address] [place] [address] Social History Tobacco Use Types Packs/Day Years Used Date Smoking Tobacco: Former Cigarettes Q uit: 05/24/2004 Smokeless Tobacco: Never Alcohol Use Standard Drinks/Week Comments Yes 0 (1 standard drink = 0.6 oz pur e alcohol) very seldom Sex and Gender Information Value Date Recorded Sex Assigned at Not on file Legal Sex Male 10:18 AM CPC Gender Identity Not on file Sexual Orientation Not on file documented as of this encounter Functional Status * Is person deaf or have serious hearing difficulty? Answer Date of Assessment Author No 08/04/2013 11:03 AM CDT Chasity Murillo RN * Is person blind or have serious difficulty seeing? Answer Date of Assessment Author No 08/04/2013 11:03 AM Chasity Estevez RN * Does person have serious difficulty walking/climbing stairs? Answer Date of Assessment Author No 08/04/2013 11:03 AM Chasity Estevez RN * Does person have difficulty dressing/bathing? Answer Date of Assessment Author No 08/04/2013 11:03 AM Chasity Estevez RN * Does person have difficulty doing errands alone? Answer Date of Assessment Author Yes 08/04/2013 11:03 AM Chasity Estevez RN documented as of this encounter Mental Status * Does person have difficulty concentrating/remembering/making decisions? Answer Entry Date Author No 08/04/2013 11:03 AM Chasity Estevez RN documented in this encounter Plan of Treatment Not on file documented as of this encounter Visit Diagnoses Not on filedocumented in this encounter Care Teams Buttonholer Relationship Specialty [place] [address] [phone] PCP - General 09/25/19 [place] [address] [address] [address] Orthopedic Surgery 04/14/13 Wilmer Sán[place] [address] [place] [id number] Anesthesiology-Pain Management 04/26/13 [place] [address] [place] [phone] Orthopedic Surgery 01/13/17 documented as of this encounter
--- OUTSIDE RECORDS SUMMARY | 2024-12-08 15:00 | XMS_ITS | Clinical Summary ---
Author Organization [facility] Address [address] [place] [address] Care Team Providers Care Esl Tutor Name Role Phone Unavailable Primary Care Provider Unavailabl e Social History Tobacco Use Types Packs/Day Years Used Date Smoking Tobacco: Never Assessed Sex and Gender Information Value Date Recorded Sex Assigned at Not on file Legal Sex Male 8:50 PM CDT Gender Identity Not on file Sexual Orientation Not on file Plan of Treatment Health Maintenance Due Date Last Done Comments Hepatitis C 12[birth year]10/1963 DTaP, Tdap and Td Vaccines ( 1 - Tdap) 1964 Pneumococcal Vaccine: 50+ Ye ars (1 of 1 - PCV) 12/10/1995 Zoster Vaccines (1 of 2) 12/10/1995 RSV Immunization or 60+ Years (1 - 1-dose 75+ series) 2020 COVID-19 Vaccine ( - 2023-2 5 season) 2024 Meningococcal B Vaccine Aged Out No l onger eligible based on patient's age to complete this topic Meningococcal Vaccine Aged Out No kayla paola eligible based on patient's age to complete this topic RSV Immunizations Under 20 Months Aged Out No longer eligible based on patient's age to complete this topic
--- OUTSIDE RECORDS SUMMARY | 2024-12-08 15:00 | XMS_ITS | Encounter Summary ---
Author Organization [facility] Health Address [address] [place] [address] Care Team Providers Care Railway Signal Operator Name Role Phone Ivan FINK MD, Frank Unavailable [phone] Wilmer Sánchez MD Unavailable [phone] Nolan Freeman MD Unavailable [phone] Bal Tomas MD Primary Care Provider [phone] Encounter Details Date Type Department Care Team (Late st Contact Info) Description 06/21/2014 [facility] [address] [address] Social History Tobacco Use Types Packs/Day Years Used Date Smoking Tobacco: Former Cigarettes Q uit: 05/24/2004 Smokeless Tobacco: Never Alcohol Use Standard Drinks/Week Comments Yes 0 (1 standard drink = 0.6 oz pur e alcohol) very seldom Sex and Gender Information Value Date Recorded Sex Assigned at Not on file Legal Sex Male 10:18 AM CORE DIPPER Gender Identity Not on file Sexual Orientation [...] on filedocumented in this encounter Care Teams Railway Signal Operator Relationship Specialty [place] [address] [place] [phone] PCP - General 09/25/19 [place] [address] [address] [place] [address] Orthopedic Surgery 04/14/13 Wilmer Sánchez [place] [address] [place] [address] Anesthesiology-Pain Management 04/26/13 [place] [address] [place] [phone] Orthopedic Surgery 01/13/17 documented as of this encounter
--- OUTSIDE RECORDS SUMMARY | 2024-12-08 15:00 | XMS_ITS | Encounter Summary ---
Author Organization [facility] Address [address] [place] [address] Care Team Providers Care Cooper Helper Name Role Phone Ivan FINK MD, Liam Unavailable [phone] Wilmer Sánchez MD Unavailable [phone] Nolan Freeman MD Unavailable [phone] Bal Tomas MD Primary Care Provider [phone] Encounter Details Date Type Department Care Team (Late st Contact Info) Description 08/23/2013 Therapy Visit [facility] Orthopedics [address] [address] [place] [address] [address] Social History Tobacco Use Types Packs/Day Years Used Date Smoking Tobacco: Former Cigarettes Q uit: 05/24/2007 Alcohol Use Standard Drinks/Week Comments No 0 (1 standard drink = 0.6 oz pur e alcohol) Sex and Gender Information Value Date Recorded Sex Assigned at Not on file Legal Sex Male 10:18 AM CURRENCY EXCHANGE SPECIALIST Gender Identity Not on file Sexual Orientation Not on file documented as of this encounter Functional Status * Is person deaf or have serious hearing difficulty? Answer Date of Assessment Author No 08/04/2013 11:03 AM CDT Chasity Murillo RN * Is person blind or have serious difficulty seeing? Answer Date of Assessment Author No 08/04/2013 11:03 AM CDT Chasity Murillo RN * Does person have serious difficulty [...] on filedocumented in this encounter Care Teams Cooper Helper Relationship Specialty [place] [address] [phone] PCP - General 09/25/19 [place] [address] [address] [address] Orthopedic Surgery 04/14/13 Wilmer Sánchez [place] [address] [place] [address] Anesthesiology-Pain Management 04/26/13 [place] [address] [place] [phone] Orthopedic Surgery 01/13/17 documented as of this encounter
--- OUTSIDE RECORDS SUMMARY | 2024-12-08 15:00 | XMS_ITS | Encounter Summary ---
Author Organization [facility] Address 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. Encounter Details Date Type Department Care Team (Late st Contact Info) Description 04/16/2020 Telephone [facility] Admitting [address] [place] [address] [place] [address] [place] [address] DYSPHAGIA AFTER SPINAL SURGERY NEEDS PEG (LEFT VOICEMAIL FOR GENERAL SUPERINTENDENT AUTUMN @ [facility] OFF[facility].) Social History Tobacco Use Types Packs/Day Years [...] on file Sexual Orientation Not on file COVID-19 Exposure Response Date Recorded In the last month, have you been in contact with someone who was confirmed or suspected to have Coronavirus / COVID-19? No / Unsure 04/16/2020 1:52 PM BEAR KEEPER documented as of this encounter Plan of Treatment Not on file documented as of this encounter Visit Diagnoses Not on filedocumented in this encounter Care Teams Sulfate Drier Machine Operator Relationship Specialty Start Date End Date Bal Tomas MD [address] [place] [phone] PCP - General Internal Medicine 01/25/19 documented as of this encounter
[2024-12-08 15:17] LABS: Hematocrit 49.6 % (37.0-46.0); Hemoglobin 16.4 g/dL (12.4-15.3); Mean Corpuscular HGB Conc 33.1 g/dL (32-36); Mean Corpuscular Hemoglobin 29.1 pg (27.0-31.0); Mean Corpuscular Volume 88.1 fL (78.0-102.0); Platelet Count Result 215 K/mm3 (150-420); Red Blood Count 5.63 M/mm3 (4.70-6.10); White Blood Count 14.0 K/mm3 (4.8-10.8)
[2024-12-08 15:23] LABS: Estimated Glomerular Filt Rate 31
[2024-12-08 15:24] LABS: Add Urine Microscopic? YES; Appearance Urine Clear (Clear); Glucose Urine UA Negative (Negative); Leukocyte Esterase Ur Negative (Negative); Nitrate Urine Negative (Negative); Specific Grav Ur 1.020 (1.010-1.020)
[2024-12-08 15:42] LABS: Alanine Aminotransferase 24 U/L (6-50); Albumin Level 4.2 g/dL (3.5-5.1); Alkaline Phosphatase 81 U/L (38-126); Anion Gap 8 mmol/L (4-12); Aspartate Amino Transferase 40 U/L (17-59); Bilirubin,Total 0.6 mg/dL (0.2-1.3); Blood Urea Nitrogen 24 mg/dL (9-20); Calcium 9.6 mg/dL (8.4-10.2); Carbon Dioxide 24 mmol/L (22-30); Chloride 103 mmol/L (98-107); Estimated Glomerular Filt Rate 32; Glucose 94 mg/dL (65-110); Osmolality Calculated 284 mOsm/kg (285-295); Potassium 4.5 mmol/L (3.4-5.0); Sodium 135 mmol/L (137-145); Total Protein 6.8 g/dL (6.3-8.2)
== END 2024-12-08 14:55 | disposition home or self-care (01) ==
LOC: CHSLAB 14:57
PROVIDERS: PCP Internal Medicine; Visit Provider Internal Medicine
DX: R10.31 Right lower quadrant pain (principal); N20.1 Calculus of ureter; N26.1 Atrophy of kidney (terminal); K65.4 Sclerosing mesenteritis; I71.40 Abdominal aortic aneurysm, without rupture, unspecified; R93.41 Abnormal radiologic findings on diagnostic imaging of renal pelvis, ureter, or bladder
CPT/HCPCS: 36415; 74176; 80053; 81001; 83605; 85027; 87086

== ENCOUNTER 2024-12-11 09:26 | Outpatient (CLI) | payer MEDICARE, OTHER, SELFPAY ==
--- NOTE | ~2024-12-11 | US_ITS ---
US retroperitoneal comp 12/11/2024 10:08 Procedure: Realtime transabdominal ultrasound of the kidneys and bladder. Indication: Renal stone. Hydronephrosis. Comparison: No prior studies for comparison. Findings: Renal echotexture is normal bilaterally without hydronephrosis, contour deforming mass or r enal calculus. 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 Bladder wall is thickened measuring 11 mm. No hydronephrosis or renal stones are identified. 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 2: Bladder wall thickening measuring 11 mm, suspicious for cystitis. Clinically correlate. Reviewed, dictated and finalized at location A. 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 2: Bladder wall thickening measuring 11 mm, suspicious for cystitis. Clinicall y correlate.
--- OUTSIDE RECORDS SUMMARY | 2024-12-11 09:35 | XMS_ITS | Clinical Summary ---
Author Organization [facility] Address [address] [place] [address] Phone Care Team Providers Care System Validation Engineer Name Role Phone Bal Tomas MD Primary [...] Tablet 1 Active naloxone (NARCAN) 4 mg/spray [place], Non-Aerosol EMERGENCY USE ONLY: Administer 1 spray [...] Comments Blood Pressure 123/56 06/18/2020 12:27 PM ADMISSION NURSE Pulse 98 06/18/2020 12:27 PM ADMISSION NURSE Temperature 37.2 C (99 F) 06/18/2020 12:27 PM ADMISSION NURSE Respiratory Rate 16 06/18/2020 12:27 PM ADMISSION NURSE Oxygen Saturation 96% 06/18/2020 12:27 PM ADMISSION NURSE Inhaled Oxygen Concentration - - Weight 95.1 kg (209 lb 9.6 oz) 06/17/2020 8:41 A M ADMISSION NURSE Height 180.3 cm (5' 11) 06/17/2020 8:41 AM ADMISSION NURSE Body Mass Index 29.23 06/17/2020 8:41 AM ADMISSION NURSE Plan of Treatment Health Maintenance Due Date [...] 09/01/2028, 06/20/2016 Medical Devices Implanted Type Area Animal Stunner Device Identifier Shelf Expiration Date Model / Serial / Lot Biomet Bone Cement R Implanted:Qty: 2 on 06/17/2020 by Jai Wong MD at [facility] Cement Right: Knee NAV [employer] [id number] 12/21/2024 [id number] / / [id number] Peg Endovive Sfty 24fr 6648 - [id number] Implanted:Qty: 1 on 04/16/2020 by Armando So MD at [facility] Feeding Device N/A: Abdomen [email or web address] FRANNIE [id number] 05/23/2021 [id number] / / [id number] Hemostatic Surgiflo 8ml W/Thrombin 2994 - [id number] Implanted:Qty: 2 on 04/02/2020 by Donn Ledezma MD at [facility] Hemostatic N/A: Spine Cervical Anterior J&J- [employer] [id number] 03/23/2021 2994 / / [id number] Comp Fem Persona Cr Sz11 Rt 33-9427-132-02 - [id number] Implanted:Qty: 1 on 06/17/2020 by Jai Wong MD at [facility] Knee Right: Knee NAV US INC 01/11/2030 [id number] / / [id number] Plate Tawanna Vision Elite 80mm Implanted:Qty: 1 on 04/02/2020 by Donn Ledezma MD at [facility] Plate N/A: Spine Cervical Anterior [employer] [id number] / STERILIZED 03/26/2020 / [id number] #[id number] Description:ENTERED BY REDD 11 [id number] 1X ADD KALEB [address] Va 4.0x14mm [id number] - [id number] Implanted:Qty: 10 on 04/02/2020 by Donn Ledezma MD at [facility] Screw N/A: Spine Cervical Anterior [employer]- SOFAMOR JOSELINEK [id number] / / Description:LOAD # [id number] DATE 03/26/2020 Mis Quad Sparing Total Knee Procedure Headed Screw 48mm Length Implanted:Qty: 1 on 06/17/2020 by Jai Wong MD at [facility] Screw Right: Knee [employer] [id number] 04/14/2030 29-6939-101- 48 / / [id number] Bone Block L-Ascr [id number] 317378 - [id number] Implanted:Qty: 1 on 04/02/2020 by Donn Ledezma MD at [facility] N/A: Spine Cervical Anterior [employer] 10/22/2022 [id number] / [id number] / [id number] Bone Block L-Ascr [id number] 419476 - [id number] Implanted:Qty: 1 on 04/02/2020 by Donn Ledezma MD at [facility] N/A: Spine Cervical Anterior [employer] 10/25/2020 [id number] / [id number] / [id number] Description:KALEB 67636 Graft Bone Cornerstone 35y32g1 Lsr 000855 - [id number] Implanted:Qty: 1 on 04/02/2020 by Donn Ledezma MD at [facility] N/A: Spine Cervical Anterior [employer] 03/08/2022 [id number] / [id number] / [id number] Graft Bone Cornerstone [id number] Lsr 254795 - [id number] Implanted:Qty: 1 on 04/02/2020 by Donn Ledezma MD at [facility] N/A: Spine Cervical Anterior [employer] 01/16/2023 [id number] / [id number] / [id number] Toombs 1 Cc Dbm Putty Implanted:Qty: 1 on 04/02/2020 by Donn Ledezma MD at [facility] N/A: Spine Cervical Anterior [employer] 01/22/2023 [id number] / [id number] / Description:ENTERED BY [facility] - PER TISSUE TRACKING FORM. REQ#[id number] Persona The Personalized Knee System 2.5mm Female Hex Screw 25mm Length Implanted:Qty: 1 on 06/17/2020 by Jai Wong MD at [facility] Right: Knee [employer] 04/29/2030 [id number] / / [id number] Persona The Personalized Knee System Natural Tibia Cemented 5 Degree Implanted:Qty: 1 on 06/17/2020 by Jai Wong MD at [facility] Right: Knee [employer] [id number] 11/28/2029 54-8675-273- 02 / / [id number] Persona The Personalized Knee System Vivacit-E Highly Crosslinked Polyethyene Right 10mm Height Implanted:Qty: 1 on 06/17/2020 by Jai Wong MD at [facility] Right: Knee [employer] [id number] 10/21/2024 35-2612-924- 10 / / [id number] Explanted Type Area Animal Stunner Device Identifier Shelf Expiration Date Model / Serial / Lot Hemostatic Surgiflo 8ml W/Thrombin 2994 - [id number] Explanted:Qty: 1 on 01/31/2019 by Donn Ledezma MD at [facility] N/A: Spine Lumbar J[employer]J- [employer] 03/23/2020 2994 / / [id number] Insurance MEDICARE PART A AND B [facility] JULIA COREA [id number] RX [facility] Medicare Part D Advance Directives For more information, please contact: [phone] Documents on File Type Date Recorded Patient Service Center Appraiser Expl anation Advance Directive POA 01/27/2019 10:33 [...] 4:47 PM 02/10/2019 5:06 PM Care Teams System Validation Engineer Relationship Specialty Start Date End Date Bal Tomas MD [address] [place] [address] PCP - General Internal Medicine 01/25/19
--- OUTSIDE RECORDS SUMMARY | 2024-12-11 09:35 | XMS_ITS | Clinical Summary ---
Author Organization [facility] [employer] Address [address] [place] [address] Care Team Providers Care Tile Molder Hand Name Role Phone Ivan FINK MD, Liam Unavailable [phone] Wilmer Sánchez MD Unavailable [phone] Nolan Freeman MD Unavailable [phone] Bal Tomas MD Primary Care Provider [phone] Source Comments [facility],non-owned Affiliates and Associated Physician Practices is amultiple site organization consisting of ambulatory clinics and hospital sitesin [place], [place], [place] and [place]. This disclosure is being madepursuant to the Care Everywhere program and may not contain all information available regarding this patient. Last updated 18.[facility] Allergies Active Allergy Reactions Criticality Noted Date [...] on file Legal Sex Male 10:18 AM ADMISSIONS COUNSELOR Gender Identity Not on file Sexual Orientation [...] 103 kg (227 lb) 04/08/2021 1:27 PM ADMISSIONS COUNSELOR Height 172.7 cm (5' 8) 04/08/2021 1:27 PM ADMISSIONS COUNSELOR Body Mass Index 34.52 04/08/2021 1:27 PM ADMISSIONS COUNSELOR Plan of Treatment Health Maintenance Due Date [...] this topic Medical Devices Implanted Type Area Black Leather Buffer Device Identifier Shelf Expiration Date Model / Serial / Lot Sriram 10ml Implanted:Qty : 1 on 08/01/2013 at [facility] Collagen Left: Hip [employer] 10/20/2014 [id number] / / [id number] Shell With Cluster Holes Implanted:Qty : 1 on 08/01/2013 by Liam Love IV, MD at [facility] Left: Hip 06/22/2023 / / [id number] Trilogy Liner Implanted:Qty : 1 on 08/01/2013 by Liam Love IV, MD at [facility] Left: Hip 05/22/2014 / / [id number] Offset Stem Implanted:Qty : 1 on 08/01/2013 by Liam Love IV, MD at [facility] Left: Hip 02/20/2018 01.27617.0 70 / / [id number] Femoral Head Implanted:Qty : 1 on 08/01/2013 by Liam Love IV, MD at [facility] Left: Hip 11/20/2022 [id number] 6- / / [id number] Graft Cv 14mm 30cm Hmshld Gld Mcvl 2 Vlr - [id number] Implanted:Qty : 1 on 03/21/2021 by Jason Loza MD at [facility] N/A: Aorta Maquet 10/21/2025 [id number] / [id number] / [id number] Procedures Procedure Name Priority Date/Time Associated Diagnosis Comments RENAL FUNCTION PANEL AM Draw 03/25/2021 5:08 AM CDT HEMOGLOBIN A1C 10/06/2019 10:51 AM CDT from Last 3 Months or Most Recently Relevant to Health Maintenance Results * (ABNORMAL) RENAL FUNCTION PANEL (03/25/2021 5:08 AM CDT) [facility] Glucose 101 70 - 105 mg/dL 03/25/2021 5:33 AM CDT [facility] Sodium 138 136 - 145 mmol/L 03/25/2021 5:33 AM CDT [facility] Potassium 3.6 3.5 - 5.1 mmol/L 03/25/2021 5:33 AM CDT [facility] Chloride 103 98 - 107 mmol/L 03/25/2021 5:33 AM CDT [facility] CO2 26 23 - 31 mmol/L 03/25/2021 5:33 AM CDT [facility] Calcium 9.1 8.4 - 10.4 mg/dL 03/25/2021 5:33 AM CDT [facility] Anion Gap 9 8 - 18 mmol/L 03/25/2021 5:33 AM CDT [facility] BUN 10 8.4 - 25.7 mg/dL 03/25/2021 5:33 AM CDT [facility] Creatinine 0.67(L) 0.72 - 1.25 mg/dL 03/25/2021 5:33 AM CDT [facility] Albumin 2.8(L) 3.2 - 4.6 gm/dL 03/25/2021 5:33 AM CDT [facility] Phosphorus 2.5 2.3 - 4.7 mg/dL 03/25/2021 5:33 AM CDT [facility] eGFR by MDRD >60 mL/min/1.7 3m2 03/25/2021 5:33 AM CDT [facility] eGFR by MDRD >60 mL/min/1.7 3m2 03/25/2021 5:33 AM CDT [facility] Blood BLOOD SPECIMEN / Unknown Venipuncture / Unknown 03/25/2021 5:08 AM CDT 03/25/2021 5:13 AM CDT us Alvin Kuhn MD LAB - CHEMISTRY ORDERABLES Final Result [facility] [address] [place] [address] * HEMOGLOBIN A1C (10/06/2019 10:51 [...] diagnosis of diabetes in children. According to [place] Diabetes Association (ADA) guidelines, hemoglobin A1c <7.0% represents optimal control in non- diabetic patients. Different metrics may apply to specific patient populations. Standards of Medical Care in Diabetes(ADA). Test Performed at: [facility] [address] [place] [address] MAX PARADA DO,MPH 10/06/2019 10:5 1 AM CDT 10/06/2019 11:20 AM CDT Liana Shaikh MD LAB - CHEMISTRY ORDERABLES Fi nal Result [facility] [address] [place] [address] from Last 3 Months or Most Recently Relevant to Health Maintenance Insurance MEDICARE [facility] MEDICARE [facility] [place] [address] Advance Directives Documents on File Type Date Recorded Patient Business Development Sales Executive Expl anation Adv Directive/Living Will/POA 08/05/2013 11:14 PM Adv Directive/Living Will/POA 07/18/2013 10:50 AM LIVING MATT * Full Code (Latest Code Status on File) Date Activated Date Inactivated Comments 03/21/2021 1:44 PM 03/25/2021 1:49 PM * Full Code Date Activated Date Inactivated Comments 08/01/2013 11:18 AM 08/04/2013 12:23 PM Care Teams Tile Molder Hand Relationship Specialty [place] [address] [place] [phone] PCP - General 09/25/19 [place] [address] [address] [place] [address] Orthopedic Surgery 04/14/13 Wilmer Sánchez [place] [address] [place], [place] [phone] Anesthesiology-Pain Management 04/26/13 [place] [address] [place] [phone] Orthopedic Surgery 01/13/17
--- OUTSIDE RECORDS SUMMARY | 2024-12-11 09:35 | XMS_ITS | Clinical Summary ---
Author Organization [facility] Address [address] [place] [address] Care Team Providers Care Employment Assistant Name Role Phone Unavailable Primary Care Provider [...]
--- OUTSIDE RECORDS SUMMARY | 2024-12-11 09:35 | XMS_ITS | Encounter Summary ---
Author Organization [facility] Health Address [address] [place] [address] Care Team Providers Care Sql Architect Name Role Phone Ivan FINK MD, Frank Unavailable [phone] Wilmer Sánchez MD Unavailable [phone] Nolan Freeman MD Unavailable [phone] Bal Tomas MD Primary Care Provider [phone] Encounter Details Date Type Department Care Team (Late st Contact Info) Description 08/22/2015 [facility] Outpatient Visit [facility] [address] [place] [address] [place] [address] [facility] [address] [place] [address] Social History Tobacco Use Types Packs/Day Years Used Date Smoking Tobacco: Former Cigarettes Q uit: 05/24/2004 Smokeless Tobacco: Never Alcohol Use Standard Drinks/Week Comments Yes 0 (1 standard drink = 0.6 oz pur e alcohol) very seldom Sex and Gender Information Value Date Recorded Sex Assigned at Not on file Legal Sex Male 10:18 AM WOMEN'S HEALTH CARE NURSE PRACTITIONER Gender Identity Not on file Sexual Orientation [...] on filedocumented in this encounter Care Teams Sql Architect Relationship Specialty [place] [address] [phone] PCP - General 09/25/19 [place] [address] [address] [address] Orthopedic Surgery 04/14/13 Wilmer Sánchez [place] [address] [place] [phone] Anesthesiology-Pain Management 04/26/13 [place] [address] [place] [phone] Orthopedic Surgery 01/13/17 documented as of this encounter
--- OUTSIDE RECORDS SUMMARY | 2024-12-11 09:35 | XMS_ITS | Encounter Summary ---
Author Organization [facility] Address 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. Encounter Details Date Type Department Care Team (Late st Contact Info) Description 04/16/2020 Telephone [facility] Admitting [address] [place] [address] [place] [address] [place] [address] DYSPHAGIA AFTER SPINAL SURGERY NEEDS PEG (LEFT VOICEMAIL FOR TMD TEACHER ASSISTANT AUTUMN @ [facility] OFFICE.) Social History [...] COVID-19? No / Unsure 04/16/2020 1:52 PM APPELLATE CONFEREE documented as of this encounter Plan of Treatment Not on file documented as of this encounter Visit Diagnoses Not on filedocumented in this encounter Care Teams Group Home Manager Relationship Specialty Start Date End Date Bal Tomas MD [address] [place] [phone] PCP - General Internal Medicine 01/25/19 documented as of this encounter
--- OUTSIDE RECORDS SUMMARY | 2024-12-11 09:35 | XMS_ITS | Encounter Summary ---
Author Organization [facility] Address [address] [facility] [place] [address] Care Team Providers Care Road Gang Supervisor Name Role Phone Ivan FINK MD, Liam Unavailable [phone] Wilmer Sánchez MD Unavailable [phone] Nolan Freeman MD Unavailable [phone] Bal Tomas MD Primary Care Provider Encounter Details Date Type Department Care Team (Late st Contact Info) Description 08/23/2013 Therapy Visit [facility] Orthopedics [address] [address] [place] [address] [address] Social History Tobacco Use Types Packs/Day Years Used Date Smoking Tobacco: Former Cigarettes Q uit: 05/24/2007 Alcohol Use Standard Drinks/Week Comments No 0 (1 standard drink = 0.6 oz pur e alcohol) Sex and Gender Information Value Date Recorded Sex Assigned at Not on file 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 Gender Identity Not on file Sexual Orientation [...] on filedocumented in this encounter Care Teams Road Gang Supervisor Relationship Specialty [place] [address] [phone] PCP - General 09/25/19 [place] [address] [address] [address] Orthopedic Surgery 04/14/13 Wilmer Sánchez [place] [address] [place] [address] Anesthesiology-Pain Management 04/26/13 [place] [address] [place] [phone] Orthopedic Surgery 01/13/17 documented as of this encounter
--- OUTSIDE RECORDS SUMMARY | 2024-12-11 09:35 | XMS_ITS | Encounter Summary ---
Author Organization [facility] Health Address [address] [facility] [place] [address] Care Team Providers Care District Representative Name Role Phone Ivan FINK MD, Frank Unavailable [phone] Wilmer Sánchez MD Unavailable [phone] Nolan Freeman MD Unavailable [phone] Bal Tomas MD Primary Care Provider [phone] Encounter Details Date Type Department Care Team (Late st Contact Info) Description 06/21/2014 [facility] [place] [address] [address] Social History Tobacco Use Types Packs/Day Years Used Date Smoking Tobacco: Former Cigarettes Q uit: 05/24/2004 Smokeless Tobacco: Never Alcohol Use Standard Drinks/Week Comments Yes 0 (1 standard drink = 0.6 oz pur e alcohol) very seldom Sex and Gender Information Value Date Recorded Sex Assigned at Not on file 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 Gender Identity Not on file Sexual Orientation [...] on filedocumented in this encounter Care Teams District Representative Relationship Specialty [place] [address] [place] [address] PCP - General 09/25/19 [place] [address] [address] [place] [address] Orthopedic Surgery 04/14/13 Wilmer Sánchez [place] [address] [address] [place] [address] Anesthesiology-Pain Management 04/26/13 [place] [address] [address] [place] [address] Orthopedic Surgery 01/13/17 documented as of this encounter
[2024-12-11 09:43] LABS: Hematocrit 46.6 % (37.0-46.0); Hemoglobin 15.1 g/dL (12.4-15.3); Mean Corpuscular HGB Conc 32.4 g/dL (32-36); Mean Corpuscular Hemoglobin 29.5 pg (27.0-31.0); Mean Corpuscular Volume 91.0 fL (78.0-102.0); Platelet Count Result 235 K/mm3 (150-420); Red Blood Count 5.12 M/mm3 (4.70-6.10); White Blood Count 7.9 K/mm3 (4.8-10.8)
[2024-12-11 10:06] LABS: Anion Gap 5 mmol/L (4-12); Blood Urea Nitrogen 20 mg/dL (9-20); Calcium 9.1 mg/dL (8.4-10.2); Carbon Dioxide 31 mmol/L (22-30); Chloride 99 mmol/L (98-107); Estimated Glomerular Filt Rate > 60; Glucose 91 mg/dL (65-110); Osmolality Calculated 282 mOsm/kg (285-295); Potassium 4.6 mmol/L (3.4-5.0); Sodium 135 mmol/L (137-145)
== END 2024-12-11 09:27 | disposition home or self-care (01) ==
PROVIDERS: PCP Internal Medicine; Visit Provider Internal Medicine
DX: N13.2 Hydronephrosis with renal and ureteral calculous obstruction (principal); R93.41 Abnormal radiologic findings on diagnostic imaging of renal pelvis, ureter, or bladder
CPT/HCPCS: 36415; 76770; 80048; 85027